=== PATIENT | male | born 1950 | race Caucasian/White ===

== ENCOUNTER 2018-12-26 05:13 | Inpatient (IN) | payer OTHER, MEDICARE, SELFPAY ==
[2018-12-26] VITALS (23 sets, daily range): BP systolic 110–173; BP diastolic 77–93; PULSE 76–108; RESP 15–24; TEMP 36.6–37.5; O2SAT 91–95; BMI 26.1; BMI 25.8
--- NOTE | 2018-12-26 05:21 | EKG12_ITS ---
Test Reason : Blood Pressure : / mmHG Vent. Rate : 103 BPM Atrial Rate : 104 BPM P-R Int : 200 ms QRS Dur : 066 ms QT Int : 366 ms P-R-T Axes : 070 030 013 degrees QTc Int : 479 ms Sinus tachycardia Nonspecific ST abnormality Abnormal ECG Confirmed by FRANK AHN, NAE ([id number]), news copy editor KAREN ESPINOSA ([id number]) on 12/30/2018 9:13:18 AM Referred By: NIKKI Confirmed By:LEYDI MARIE MD
--- NOTE | 2018-12-26 05:21 | RAD_ITS ---
STUDY: X-RAY CHEST REASON FOR EXAM: Male, 67 years old. Cough and shortness of breath. TECHNIQUE: Single AP portable view of the chest. COMPARISON: None. FINDINGS: The lungs are normally expanded with bilateral interstitial prominence, more significant along the lung bases. Subtle groundglass opacity on the right may indicate superimposed pneumonia. There is no demonstrated pleural abnormality. Normal size heart. Normal mediastinum and redd. Normal visualized pulmonary arteries. There is atherosclerotic calcification of the aortic arch with tortuosity. There are diffuse degenerative changes of the visualized thoracic spine. There is degenerative osteoarthritis of the bilateral shoulders. There is no demonstrated abnormality of the visualized soft tissue structures of the upper abdomen. RAD/Chest 1 View (Portable) IMPRESSION: Possible mild right lower lobe pneumonia with underlying interstitial lung disease. Electronically Signed: Carmina Rayo MD at 5:59 EST , Service support ,
--- NOTE | 2018-12-26 05:22 | ED.VIS.DYS ---
History of Present Illness Chief Complaint: Shortness of Breath Informant: Patient, EMS Onset: Days - 3 Timing: Continuous Quality: Dyspnea on exertion, Wheezing Current Severity: Severe Maximum Severity: Severe Worsened by: Coughing, Exertion Relieved by: - - Vicks vapor nebulizer Associated Symptoms: Chills, Cough, Green sputum Chest Pain: None Narrative: Patient is a 67-year-old male with history of hypertension and lifelong tobacco use presenting with worsening shortness of breath. Patient states he had a flulike illness 2 weeks ago. He notes he got better for a couple days but then over the past 3 days he is been worsening again. He states he feels short of breath especially with exertion. He has chills and sweats but denies any fever. He has had a cough productive of light green sputum. Patient states he is been wheezing. This morning when he woke up he felt very short of breath was using his vaccinate nebulizer at home. He states whenever he tried to stop using the nebulizer his breathing worsens which is why he called 911. He had an O2 saturation of 90% and squad placed him on nasal cannula. Patient denies any nausea, vomiting or diarrhea. He denies any change in his bowel habits. He denies any urinary symptoms. He denies any vision changes or headache. He denies any rash or skin changes. Past Medical History - Allergies and Home Meds Allergies/Adverse Reactions: Allergies CATHERINE Inhibitors Allergy (Verified 12/26/18 05:21) Angioedema Primary Care Physician: Isabell Doctor,Out of [NON-STAFF] - Past Medical History: - - Hypertension Surgical History: - - Small bowel resection Smoking Status: Current every day smoker Review of Systems General: Reports: Chills, Malaise, Sweats. Denies: Fever Eyes: Denies: Visual changes - bilaterally, Diplopia ENT: Denies: Rhinorrhea, Sore throat Cardiovascular: Denies: Chest pain, Palpitations Respiratory: Reports: Dyspnea, Cough, Sputum, Dyspnea on exertion Gastrointestinal: Denies: Abdominal pain, Nausea, Vomiting, Diarrhea, Melena, Hematochezia Genitourinary: Denies: Dysuria, Hematuria, Frequency Musculoskeletal: Denies: Back pain, Extremity Pain Skin: Denies: Rash, Wounds Neurological: Denies: Headache, Weakness, Numbness Physical Exam Vital Signs/Narrative: Vital Signs Temp Pulse Resp BP Pulse Ox 12/26/18 05:14 98.3 F 103 H 24 H 171/93 H 91 Inital Vital Signs reviewed: Yes General: Well nourished, Well developed, No Acute Distress Head: Normocephalic, Atraumatic Eyes: Perrl, EOMI ENT: Moist mucous membranes, No rhinorrhea, TM's clear Neck: Supple, Nontender. Negative for: No JVD Cardiovascular: Regular rhythm, No murmurs, Tachycardia Respiratory: No distress, Chest nontender, Wheezing, Diminished, Decreased Air Movement. Negative for: Chest tenderness Abdomen: Soft, Nontender, Nondistended, Normal bowel sounds Back: Nontender, Normal Inspection Extremities: Nontender, No edema Skin: Normal color, No rash Neurological: Alert, Oriented x3, Cranial nerves II-XII grossly intact, Normal Strength, Normal Sensation Psychological: Normal affect, Normal Mood Diagnostic/Tx/Re-eval Chest X-Ray - ED: 2 View, Read by ED Physician, Read by Radiologist, Chronic Changes, Right Infiltrate Clinical Impression(s) from Imaging Studies Chest X-Ray 12/26/18 05:21 IMPRESSION: Possible mild right lower lobe pneumonia with underlying interstitial lung disease. Electronically Signed: Carmina Rayo MD at 5:59 EST , Service support , Laboratory Data 12/26/18 12/26/18 12/26/18 05:20 05:20 05:20 WBC 8.0 RBC 3.71 L Hgb 13.1 Hct 38.0 L MCV 102.4 H MCH 35.3 H MCHC 34.5 RDW Std Deviation 51.8 H RDW Coeff of Katie 13.8 Plt Count 75 L MPV 11.2 Immature Gran % (Auto) 0.400 Neut % (Auto) 64.9 Lymph % (Auto) 14.1 L [place] % (Auto) 14.2 H Eos % (Auto) 6.0 H Baso % (Auto) 0.4 Absolute Neuts (auto) 5.2 Absolute Lymphs (auto) 1.12 Nucleated RBC % 0 Sodium 140 Potassium 3.1 L Chloride 108 H Carbon Dioxide 24.0 Anion Gap 8 BUN 7 Creatinine 1.05 Estim Creat Clear Calc 72.88 Est GFR (MDRD) Af Amer 90 Est GFR (MDRD) Non-Af 74 BUN/Creatinine Ratio 6.7 L Glucose 115 H Lactic Acid 1.8 Calcium 8.0 L Troponin I 0.046 H - Rhythm Strip Rhythm Strip: Sinus Tach Rate: 103 Ectopy: None - EKG Initial EKG Interpretation: Sinus Tachycardia, - - Sinus tachycardia at a rate of 103PR interval 200QRS 66QT/QTc 366/479Normal axisNormal ST segmentsCompared to prior EKG patient has resolution of his first-degree AV block and is now tachycardic Prior: Changed - 10/05/13 Treatment - Dyspnea: Oxygen, Albuterol, Atrovent, Antibiotics, Steroid - Medical Decision Making Patient is evaluated for worsening shortness of breath and upper respiratory symptoms. On initial evaluation he is very diminished breath sounds with wheezing. He does have increased work of breathing. Patient is requiring supplementary oxygen. Patient is initially given Solu-Medrol, 500 cc of IV fluid and aerosols. Chest x-ray does show right lower lobe infiltrate which fits his clinical picture. In addition to his respiratory symptoms patient does have some increased lower extremity edema and some JVD. Chest x-ray does not look like CHF however. Patient's white blood cell count and lactate are normal. Patient does have mild improvement with supplemental oxygen and breathing treatments however he is still having a significant cough. He is given another DuoNeb for this. Troponin is minimally elevated so he is given aspirin. Potassium is 3.1 so he is given 40 mEq orally. Patient is started on Rocephin and azithromycin to treat the pneumonia. He will be admitted to the general medical floor. He is stable at time of disposition and agreeable with plan. ED Disposition - Plan for ED Patient: Disposition: Acute Care Hospital [facility] Diagnosis: Pneumonia, Hypoxia, Elevated troponin, Wheezing Referrals: [facility] Doctor,Out of [NON-STAFF] -
[2018-12-26] MEDS: MethylPREDNISolone 125 MG/2 ML Vial IV (05:32)
[2018-12-26 05:33] LABS: Absolute Lymphocyte Count 1.12 X10^3/uL (0.83-4.51); Absolute Neutrophil Count 5.2 X10^3/uL (2.0-7.7); Basophil# 0.03 X10^3/uL; Basophil% 0.4 % (0-1); Eosinophil# 0.48 X10^3/uL; Hemoglobin 13.1 g/dL (13.0-16.5); Lymphocyte # 1.12 X10^3/ul (4.0); Lymphocyte % 14.1 % (19-41); Mean Corp Hgb Conc 34.5 g/dL (32-36); Mean Corpuscular Hgb 35.3 pg (27.0-32.0); Mean Corpuscular Volume 102.4 fL (80-94); Mean Platelet Vol. 11.2 fl (6.2-12.0); Monocyte# 1.13 X10^3/uL; Monocyte% 14.2 % (0-10); NRBC Flagged by Analyzer 0 % (0-5); Neutrophil # 5.16 X10^3/uL (2.7-7.7); Neutrophil % 64.9 % (47-70); POSITIVE COUNT YES; Platelet Count 75 K/mm3 (150-450); RBC Distribution Width CV 13.8 % (11.6-14.6); RBC Distribution Width SD 51.8 fl (35.1-43.9); Red Blood Count 3.71 M/mm3 (4.6-6.2)
[2018-12-26] MEDS: Albuterol 2.5 MG/3 ML VIAL.NEB. INHALATION (05:40)
[2018-12-26] MEDS: Ipratropium/Albuterol Sulfate 3 ML AMPUL.NEB INHALATION ×6 (05:40→22:27)
[2018-12-26 05:55] LABS: Anion Gap 8 (5-15); BUN 7 mg/dL (7-18); BUN/Creat Ratio 6.7 RATIO (10-20); Chloride 108 mmol/L (98-107); Creatinine, Serum 1.05 mg/dL (0.70-1.30); EST Glomerular Filtration Rate 74 mL/min (>60); Est Glom Filt Rate - Afr Amer 90 mL/min (>60); Estimated Creatinine Clearance 72.88 ml/min; Glucose 115 mg/dL (74-106); Potassium 3.1 mmol/L (3.5-5.1); Sodium Level 140 mmol/L (136-145)
[2018-12-26 06:10] LABS: Lactic Acid 1.8 mmol/L (0.4-2.0)
--- NOTE | 2018-12-26 06:10 | HP.PCM_ITS ---
Problem List (1) Acute respiratory failure with hypoxia Status: Acute (2) Pneumonia Status: Acute Qualifiers: Pneumonia type: due to unspecified organism Laterality: right Lung location: middle lobe of lung Qualified Code(s): J18.9 - Pneumonia, unspecified organism (3) COPD exacerbation Status: Acute (4) Elevated troponin Status: Acute (5) Hypokalemia Status: Acute (6) HTN (hypertension) Status: Chronic Qualifiers: Hypertension type: essential hypertension Qualified Code(s): I10 - Essential (primary) hypertension (7) Tobacco use Status: Chronic (8) Alcohol abuse Status: Chronic History of Present Illness Date of Admission: 12/26/18 Chief Complaint: Dyspnea, cough The patient is a 67 y/o M w/ PMHx: Suspected Chronic COPD, Tobacco use, HTN, Fe Deficiency Anemia, Vitamin D deficiency who presents to the [facility] ED on 12/26/18 with history of acute viral syndrome approximately 2 weeks prior to current presentation with arthralgias, myalgias, rhinorrhea, congestion with coughing with improvement initially however over the last 3 days he feels worsened with increased shortness of breath, worse with exertion with associated chills but no specific fever with worsened productive cough of green sputum and concurrent wheezing without improvement with home nebulizer machine prompting call to EMS. Work-up in the ED included T 98.3, heart rate 103, BP 171/93, respiratory rate 24, 91% on room air, CBC with W BC 8, hemoglobin 13.1, platelet 75 with no evidence of left shift with increased monocytes and eosinophils, BMP with potassium 3.1, chloride 108, glucose 115, lactic acid 1.8, troponin 0.046, blood culture x2 pending per ED, chest x-ray with possible right middle lower lobe pneumonia with underlying interstitial lung disease, EKG sinus tachycardia without acute evidence of ischemia. In the ED patient ministered azithromycin, Rocephin, normal saline, albuterol and DuoNeb therapies, Solu-Medrol as well as aspirin 325 mg p.o. x1. In the ED upon evaluation patient has notable increased work of breathing, accessory muscle usage, pursed lip breathing therefore ABG requested as well as consideration of BiPAP if these findings are appropriate. Past Medical History Past Medical History (Chronic Problems): Chronic Problems HTN (hypertension) (Chronic) Tobacco use (Chronic) Alcohol abuse (Chronic) Allergies CATHERINE Inhibitors Allergy (Verified 12/26/18 05:21) Angioedema Home Medications: Ambulatory Orders Medication Instructions Recorded Metoprolol Tartrate [Lopressor 25 mg PO BID 10/05/13 (Beta Bryant)] Ergocalciferol [Vitamin D] 50,000 unit PO QMONTH 12/26/18 Ferrous Sulfate [Iron] 325 mg PO DAILY 12/26/18 Lactobacillus Acidophilus 1 ea PO DAILY 12/26/18 [Probiotic] Surgical History: - - Small bowel resection Psychiatric History: No pertinent psych hx Lives: Alone Smoking Status: Current every day smoker - Patient currently smokes 1 pack/day cigarette tobacco usage although has lessened over the last 2 weeks since he is been ill. Tobacco Use: Cigarettes Alcohol: Heavy - Patient notes routine binge drinking at least on the weekends given that he works during the week with at least 2 sixpacks of beer and several shots of Bryce whiskey. Drugs: None - *Family History Maternal History Items: Diabetes, Heart Disease, Hypertension Paternal History Items: Cancer Review of Systems Constitutional: Reports: Anorexia, Chills, Malaise, Weakness, Fatigue. Denies: Fever, Weight Change HEENT: Reports: Nasal Congestion, Post Nasal Drip, Sinus Congestion, Sore Throat. Denies: Head Aches, Sinus Drainage Cardiovascular: Denies: Chest Pain, Palpitations Respiratory: Reports: Cough, Shortness of Breath, Shortness of breath at rest, Shortness of breath upon exertion, Sputum production, Wheezing Gastrointestinal: Reports: Nausea. Denies: Abdominal Pain, Vomiting Genitourinary: Denies: Dysuria Musculoskeletal: Reports: Back Pain, Joint Pain, Muscle pain. Denies: Joint Tenderness Skin: Denies: Rash, Wounds Neurological: Denies: Numbness, Tingling, Focal weakness Psychiatric: Denies: Anxiety, Depression, Homicidal Ideations, Suicidal Ideations Hematologic/ Lymphatic: Reports: Anemia, Easy Bruising, Easy Bleeding VTE Information - Inpt Only VTE Present on Admission: No VTE Mechan Device Prophylaxis: SCD's VTE Pharm Prophylaxis ordered?: Yes Patient Problems: Active and Suspected Problems Pneumonia (Acute) Hypoxia (Acute) Elevated troponin (Acute) Wheezing (Acute) Acute respiratory failure with hypoxia (Acute) COPD exacerbation (Acute) Hypokalemia (Acute) Subjective: Patient seated upright in ED bed, fatigued appearance, increased work of breathing, accessory muscle usage, pursed lip breathing, requesting ABG now. Objective: Physical Examination: General: awake, alert, oriented x 3 and cooperative, seated upright in the ED bed, having difficulty speaking full sentences, short of breath, accessory muscle usage, increased respiratory rate, pending ABG now. Skin: normal color, turgor, no icterus, cyanosis. HEENT: AT/NC, EOMI, PERRLA, dry MM, posterior OP erythema, no carotid bruits or JVD noted. Lungs: Diffusely diminished breath sounds, coarse, diminished greater bases, diffuse wheezing, increased work of breathing, accessory muscle usage, difficulty speaking in full sentences, no rales or rhonchi. Heart: Tachycardic with regular rhythm; no gallop, rub audible. Abdomen: soft, thin habitus, NTTP, ND, normal BS, no HSM. Extremities: no cyanosis, clubbing, very mild bilateral lower extremity ankle and pedal edema, minimally pitting but patient notes prior over the last several days he has had difficulty eating placing issues secondary to the severity of his lower extremity edema. Neurological: patient awake, alert, oriented x 3; cognitive function intact; pupils equally reactive to light and accomodation; cranial nerves II-XII grossly normal, moving all 4 extremities, no focal deficits, strength severely global decrease secondary to acute presentation. Psychiatric: affect appears fatigued, mildly distressed, no acute evidence of depressive or anxiety feelings. - Physical Exam Vitals/I&O's: Vital Signs Temp Pulse Resp BP Pulse Ox 98.3 F 102 H 18 171/93 H 91 12/26/18 05:14 12/26/18 05:34 12/26/18 05:34 12/26/18 05:14 12/26/18 05:14 Oxygen Delivery Method Room Air Weight: 192 lb 10.944 oz Body Mass Index (BMI) 26.1 Intake and Output for Last 24 Hours 12/24/18 12/25/18 12/26/18 23:59 23:59 23:59 Intake Total 500 / 500 Balance 500 / 500 Laboratory Results 12/26/18 05:20: WBC 8.0, RBC 3.71 L, Hgb 13.1, Hct 38.0 L, MCV 102.4 H, MCH 35.3 H, MCHC 34.5, RDW Std Deviation 51.8 H, RDW Coeff of Katie 13.8, Plt Count 75 L, MPV 11.2, Immature Gran % (Auto) 0.400, Neut % (Auto) 64.9, Lymph % (Auto) 14.1 L, [place] % (Auto) 14.2 H, Eos % (Auto) 6.0 H, Baso % (Auto) 0.4, Absolute Neuts (auto) 5.2, Absolute Lymphs (auto) 1.12, Nucleated RBC % 0 12/26/18 05:20: Sodium 140, Potassium 3.1 L, Chloride 108 H, Carbon Dioxide 24.0, Anion Gap 8, BUN 7, Creatinine 1.05, Estim Creat Clear Calc 72.88, Est GFR (MDRD) Af Amer 90, Est GFR (MDRD) Non-Af 74, BUN/Creatinine Ratio 6.7 L, Glucose 115 H, Calcium 8.0 L, Troponin I 0.046 H 12/26/18 05:20: Lactic Acid 1.8 Current Medications Sodium Chloride () 500 mls @ 999 mls/hr IV .Q31M ONE Last Infusion: 12/26/18 06:06 Dose: Infused Documented by: Ceftriaxone Sodium (Rocephin) 1 gm in 50 mls @ 100 mls/hr IV X1 ONE Stop: 12/26/18 06:38 Azithromycin 500 mg/ Dextrose 255 mls @ 250 mls/hr IV X1 ONE Stop: 12/26/18 07:10 Assessment/Plan All Active Problems Pneumonia (Acute) Hypoxia (Acute) Elevated troponin (Acute) Wheezing (Acute) Acute respiratory failure with hypoxia (Acute) COPD exacerbation (Acute) Hypokalemia (Acute) The patient is a 67 y/o M w/ PMHx: Suspected Chronic COPD, Tobacco use, HTN, Fe Deficiency Anemia, Vitamin D deficiency who presents to the [facility] ED on 12/26/18 with history of acute viral syndrome approximately 2 weeks prior to current presentation with arthralgias, myalgias, rhinorrhea, congestion with improvement initially however over the last 3 days he feels worsened with increased shortness of breath, worse with exertion with associated chills but no specific fever with productive cough of green sputum and concurrent wheezing. 1. Acute Hypoxia Respiratory Failure secondary to Acute Community Acquired Pneumonia w/ Suspected Acute on Chronic COPD Exacerbation: Given presentation requested ABG in the ED and suspect BiPAP usage needs, notable increased work of breathing, accessory muscle usage and evident respiratory distress. Work-up in the ED included T 98.3, heart rate 103, BP 171/93, respiratory rate 24, 91% on room air, CBC with W BC 8, hemoglobin 13.1, platelet 75 with no evidence of left shift with increased monocytes and eosinophils, BMP with potassium 3.1, chloride 108, glucose 115, lactic acid 1.8, troponin 0.046, blood culture x2 pending per ED, chest x-ray with possible right middle lower lobe pneumonia with underlying interstitial lung disease Will admit to PCU, maintain on oxygen with wean as tolerated to room air, continue ATC duonebs, PRN albuterol, maintain on IV Solu-Medrol, maintain on IV Rocephin and Azithromycin, HOB, IS parameters w/ pending sputum cultures, respiratory viral panel and urine antigens. Bld cx x 2 obtained in the ED. Will obtain AM oxygenation trial for discharge planning daily. 2. Indeterminate cardiac enzyme w/ new onset BL LE Edema: EKG in ED with no acute evidence of ischemia, CXR w/ right middle lower lobe pneumonia with underlying interstitial lung disease, initial trop 0.046. Will place on a monitored bed to assure no acute myocardial infarction with serial cardiac enzymes and EKGs. ASA, NG, morphine. ECHO pending. CATHERINE wraps. Magnesium pending. FLP in AM. BNP pending. Examination in the ED with nonsevere appearing bilateral lower extremity ankle and pedal edema, patient noted with severe prior and he had difficulty even getting his shoes on, currently improved from his prior description. 3. Hypokalemia: Admission K+ 3.1, supplementation given, repeat level in AM. 4. Thrombocytopenia, unclear if acute versus chronic: Admission platelet level 75, prior noted in 2013 151, closely follow, repeat CBC in a.m. 5. Chronic iron deficiency anemia: Admission hemoglobin 13.1, previously noted in 1415.8, continue iron supplementation. 6. Tobacco Abuse: Encouraged cessation, inpatient consultation per RT, NR if desired. 7. EtOH Abuse: Patient notes routine consumption over the weekends, binge drinking with at least 2 sixpacks of beer and several shots of whiskey routinely but notes inability to drink during the week secondary to his activities. Will maintain on CIWA protocol, MVI, thiamine and folic acid. Magnesium and phosphorus levels requested. 8. DVT prophylaxis: SCDs, Lovenox but if further decreased platelet count would discontinue. 9. CODE STATUS: Full. Patient does not have a living will nor does he have a healthcare power of assistant district attorney. Code Visit Inpatient E&M: 96026 Init Hosp L3
[2018-12-26] MEDS: Ceftriaxone 1 GM/50 ML BAG IV ×2 (06:18→12:59)
[2018-12-26] MEDS: Aspirin 325 MG Tablet PO (06:22)
[2018-12-26 07:00] LABS: Allen Test POS; Base Excess -4 mmol/L (-2 to +2); Blood Gas Specimen Type ART; O2 Delivery Device Nasal Can; PO2 63 mmHG (75-100); SITE L Radial; SO2 93 % (95-99); Time Given 645; Total Carbon Dioxide 21 mmol/L; pCO2 30.2 mmHg (35-45); pH 7.43 (7.35-7.45)
--- NOTE | 2018-12-26 07:34 | ECHOCS_ITS ---
Version 2 Reason For Study: Dyspnea/SOB Procedure This was a 2D Doppler, Color Flow transthoracic echocardiogram. The study was technically difficult. Contrast injection was performed. Exam performed portable in ICU/CCU. Left Ventricle Normal size and thickness. The estimated ejection fraction is 60 %. No evidence for diastolic dysfunction. No regional wall motion abnormalities noted. Right Ventricle Normal RV size. Normal systolic function. Atria Normal left atrium. Normal right atrium. No doppler evidence for ASD. Mitral Valve There is no mitral valve stenosis. No mitral valve insufficiency. Tricuspid Valve There is no tricuspid stenosis. Trivial tricuspid valve insufficiency. Pulmonary artery systolic pressure is 25 mmHg. Aortic Valve Trisinus/trileaflet aortic valve. There is no aortic stenosis. No aortic valve insufficiency. Pulmonic Valve There is no pulmonic valvular stenosis. No pulmonic valve insufficiency. Great Vessels Normal aortic root. Pericardium/Pleural No pericardial effusion. Medication Diluted definity 3ml given slow IV push to enhance endocardial definition. MMode/2D Measurements & Calculations LVIDd: 5.1 cm IVSd: 0.92 cm LA dimension: 4.2 cm LVIDs: 3.8 cm LVPWd: 1.0 cm FS: 24.6 % LAV(MOD-bp): 50.3 ml LA A4 area: 18.0 cm2 RA A4 area: 13.6 cm2 LAV(MOD-bp) Indexed: 24.0 ml/m2 LAV(MOD-sp2): 48.5 ml LAV(MOD-sp4): 51.6 ml Doppler Measurements & Calculations Lat Peak [place]: 13.0 cm/sec Ao V2 max: 142.5 cm/sec LV V1 max: 130.1 cm/sec Ao max P.1 mmHg LV V1 max P.8 mmHg Interpretation Summary The study was technically difficult. Diluted definity 3ml given slow IV push to enhance endocardial definition. The estimated ejection fraction is 60 %. No evidence for diastolic dysfunction. Pulmonary artery systolic pressure is 25 mmHg. The study was technically difficult. Ordering Physician: Traci Mazariegos Performed By: Tyrese Leon RCS
[2018-12-26 08:10] LABS: Magnesium 1.3 mg/dL (1.6-2.6); Phosphorus 2.3 mg/dL (2.5-4.9); Thyroid Stim Hormone (TSH) 5.47 uIU/mL (0.358-3.74)
[2018-12-26 08:32] LABS: BNP,B-Type NATRIURETIC PEPTIDE 201.2 pg/mL (0-100)
[2018-12-26] MEDS: Metoprolol Tartrate 25 MG Tablet PO ×2 (10:22→22:02)
[2018-12-26] MEDS: Multivitamins,Ther W-Minerals Tablet 1 TABLET PO (10:40)
[2018-12-26] MEDS: Folic Acid 1 MG Tablet PO (10:40)
[2018-12-26] MEDS: Thiamine Hydrochloride 100 MG Tablet PO ×2 (10:40→18:14)
[2018-12-26] MEDS: Na Biphos/Potassium Phosphate PACKET 1 PACKET PO ×2 (10:41→22:06)
[2018-12-26] MEDS: Famotidine 20 MG Tablet PO ×2 (10:41→22:03)
[2018-12-26] MEDS: Magnesium Sulfate 4gm/100mL 4 GM/100 ML IV.SOLN. IV (10:41)
[2018-12-26] MEDS: Ferrous Sulfate 325 MG Tablet PO (12:59)
--- NOTE | 2018-12-26 13:20 | PCM.PN.HOSP ---
Patient Problems: Active and Suspected Problems Pneumonia (Acute) Hypoxia (Acute) Elevated troponin (Acute) Wheezing (Acute) Acute respiratory failure with hypoxia (Acute) COPD exacerbation (Acute) Hypokalemia (Acute) Subjective: Patient seen and examined. He was admitted with a complaint of shortness of breath and a cough productive of greenish sputum as well as wheezing. His symptoms did not improve with use of nebulizer at home. He has been managed for acute hypoxic respiratory failure due to community-acquired pneumonia and acute COPD exacerbation. Patient seen and examined. He still complains of shortness of breath. Still has a cough productive of clear sputum. Review of systems otherwise negative. BNP was mildly elevated at 201.2 and troponin was 0.045 and trended up to 0.055. Magnesium is low at 1.3 and so his phosphorus at 2.3. Potassium is also low at 3.1. Vitals/I&O's: Vital Signs Temp Pulse Resp BP Pulse Ox 98.5 F 81 18 158/83 H 95 12/26/18 07:30 12/26/18 11:41 12/26/18 11:41 12/26/18 10:22 12/26/18 11:41 Oxygen Flow Rate (L/min) 3 Oxygen Delivery Method Nasal Cannula Weight: 190 lb 7.67 oz Body Mass Index (BMI) 25.8 Intake and Output for Last 24 Hours 12/24/18 12/25/18 12/26/18 23:59 23:59 23:59 Intake Total 1165 / 1165 Balance 1165 / 1165 General: Alert, Oriented x3, Cooperative HEENT: Atraumatic, PERRLA, EOMI, Normocephalic Oral: Dry Mucosa Neck: Supple, No JVD, Negative Carotid Bruits Lungs: - - decreased breath sounds in all lung mathias, with no wheezes or crackles. On 3L of oxygen. Cardiovascular: Regular rate, Regular Rhythm, Normal S1, Normal S2, No murmurs Abdomen: Bowel Sounds Present, Soft, Non Tender, Non-Distended, No Hepato-splenomegaly Extremities: No clubbing, No cyanosis, No edema, Capillary Refill Less than 3 Seconds Skin: No rashes, No breakdown Musculoskeletal: No Tenderness to Palpation of Joints or Extremities Lymphatic: No Cervical, Supraclavicular, or Inguinal Adenopathy Neurological: Cranial nerves II-XII grossly intact, Neuro grossly intact, Motor Exam 5/5 strength throughout Psych/Mental Status: Normal Affect, Appropriate, Alert and oriented to time, place, person, mood and affect Microbiology Past 72 Hours 12/26/18 08:50 Mucosa - Nose Respiratory Panel (PCR) - Final Rhinovirus 12/26/18 08:20 Urine, Clean Catch Streptococcus pneumoniae Antigen (M - Final 12/26/18 08:20 Urine, Clean Catch Legionella Antigen - Final Laboratory Results 12/26/18 05:20: WBC 8.0, RBC 3.71 L, Hgb 13.1, Hct 38.0 L, MCV 102.4 H, MCH 35.3 H, MCHC 34.5, RDW Std Deviation 51.8 H, RDW Coeff of Katie 13.8, Plt Count 75 L, MPV 11.2, Immature Gran % (Auto) 0.400, Neut % (Auto) 64.9, Lymph % (Auto) 14.1 L, [place] % (Auto) 14.2 H, Eos % (Auto) 6.0 H, Baso % (Auto) 0.4, Absolute Neuts (auto) 5.2, Absolute Lymphs (auto) 1.12, Nucleated RBC % 0 12/26/18 05:20: Sodium 140, Potassium 3.1 L, Chloride 108 H, Carbon Dioxide 24.0, Anion Gap 8, BUN 7, Creatinine 1.05, Estim Creat Clear Calc 72.88, Est GFR (MDRD) Af Amer 90, Est GFR (MDRD) Non-Af 74, BUN/Creatinine Ratio 6.7 L, Glucose 115 H, Calcium 8.0 L, Troponin I 0.046 H 12/26/18 05:20: Lactic Acid 1.8 12/26/18 05:20: Phosphorus 2.3 L, Magnesium 1.3 L, TSH 5.47 H 12/26/18 05:20: B-Natriuretic Peptide 201.2 H 12/26/18 06:54: Specimen Type ART, Sample Site L Radial, pH 7.43, Bicarbonate Actual 20.0 L, POC Total CO2 21, Base Excess -4 L, O2 Saturation 93 L, ABG pCO2 30.2 L, ABG pO2 63 L, Xavier Test POS, O2 Delivery Device Nasal Can, Liter Flow 2.0, Blood Gas Notified Whom HOSP , Blood Gas Notified Time 645 11/21/19 08:20: Troponin I 0.055 H Diagnostic Data Chest X-Ray 12/26/18 05:21 IMPRESSION: Possible mild right lower lobe pneumonia with underlying interstitial lung disease. Electronically Signed: Carmina Rayo MD at 5:59 EST , Service support , Current Medications Acetaminophen (Tylenol) 650 mg PO Q6H PRN PRN PRN Reason: Non-cardiac pain (mod-severe) Hydrocodone Bitart/Acetaminophen (Capac 5mg-325mg) 1 - 2 tablet PO Q4H PRN PRN PRN Reason: Pain Score 4-10/10 Al Hydroxide/Mg Hydroxide (Mylanta Ii) 15 - 30 ml PO Q4H PRN PRN PRN Reason: INDIGESTION Albuterol Sulfate (Ventolin Aerosols) 2.5 mg INHALATION Q2H PRN PRN PRN Reason: dyspnea, wheezing Albuterol/Ipratropium (Duoneb) 3 ml INHALATION Q4HWA.RT [facility] Last Admin: 12/26/18 11:39 Dose: 3 ml Documented by: Dextrose (D50w Syringe) 0 gm IV X1 PRN; Protocol PRN Reason: Hypoglycemia Enoxaparin Sodium (Lovenox) 40 mg SC DAILY@0600 [facility] Famotidine (Pepcid) 20 mg PO BID [facility] Last Admin: 12/26/18 10:41 Dose: 20 mg Documented by: Ferrous Sulfate (Ferrous Sulfate) 325 mg PO DAILY@1200 [facility] Last Admin: 12/26/18 12:59 Dose: 325 mg Documented by: Folic Acid (Folic Acid) 1 mg PO DAILY@0800 [facility] Stop: 12/28/18 08:01 Last Admin: 12/26/18 10:40 Dose: 1 mg Documented by: Glucagon () 1 mg IM .X1 PRN PRN Reason: Hypoglycemia Guaifenesin (Robitussin) 20 ml PO Q4H PRN PRN PRN Reason: COUGH Hydralazine HCl (Apresoline Iv) 10 mg IV Q4H PRN PRN PRN Reason: SBP > 160 Sodium Chloride () 500 mls @ 999 mls/hr IV .Q31M ONE Last Infusion: 12/26/18 06:06 Dose: Infused Documented by: Azithromycin 500 mg/ Dextrose 255 mls @ 250 mls/hr IV Q24 [facility] Stop: 01/01/19 11:03 Ceftriaxone Sodium 2 gm/ (Sodium Chloride) 50 mls @ 100 mls/hr IV Q24 [facility] Stop: 01/03/19 10:31 Sodium Chloride () 250 mls @ 15 mls/hr IV .[id number] PRN PRN Reason: Saline Flush Magnesium Sulfate () 4 gm in 100 mls @ 25 mls/hr IV X1 ONE Stop: 12/26/18 13:59 Last Admin: 12/26/18 10:41 Dose: 25 mls/hr Documented by: Lactobacillus Acidophilus (Acidophilus) 1 tablet PO DAILY [facility] Last Admin: 12/26/18 10:41 Dose: 1 tablet Documented by: Lorazepam (Ativan) 2 mg PO Q2H PRN PRN; Protocol PRN Reason: CIWA score > 8 but <15 Lorazepam (Ativan) 2 mg PO UD PRN; Protocol PRN Reason: CIWA score >/=15. Lorazepam (Ativan) 2 mg IV Q2H PRN PRN; Protocol PRN Reason: CIWA score > 8 but <15 Lorazepam (Ativan) 2 mg IV UD PRN; Protocol PRN Reason: CIWA score >/=15. Magnesium Hydroxide (Milk Of Magnesia) 30 ml PO DAILY PRN PRN Reason: Constipation Melatonin (Melatonin) 3 mg PO QHS PRN PRN PRN Reason: INSOMNIA Methylprednisolone (Solu-Medrol) 40 mg IV Q8 [facility] Metoprolol Tartrate (Lopressor (Beta Bryant)) 25 mg PO BID [facility] Last Admin: 12/26/18 10:22 Dose: 25 mg Documented by: Morphine Sulfate () 1 - 2 mg IV Q4H PRN PRN PRN Reason: Pain Score 1-10/10 Multivitamins/Minerals (Multivitamin With Minerals) [facility] Last Admin: 12/26/18 10:40 Dose: 1 tablet Documented by: Nitroglycerin (Nitrostat) 0.4 mg SUBLINGUAL Q5M PRN PRN Reason: CARDIAC/CHEST PAIN Ondansetron HCl (Zofran) 4 mg IV Q8H PRN PRN PRN Reason: NAUSEA/VOMITING Potassium Phos/Sodium Phos (Neutra-Phos Packet) 1 packet PO BID [facility] Last Admin: 12/26/18 10:41 Dose: 1 packet Documented by: Sodium Chloride () 10 - 40 ml IV UD PRN PRN Reason: SALINE FLUSH Thiamine HCl (Vitamin B1) 100 mg PO BIDCM [facility] Stop: 12/28/18 17:01 Last Admin: 12/26/18 10:40 Dose: 100 mg Documented by: Throat Lozenges (Cepacol Sore Throat Lozenge) 1 lozenge MUCOUS MEM Q2H PRN PRN PRN Reason: Sore Throat/Cough STROKE Vital Signs/Narrative: Vital Signs Pulse Resp BP Pulse Ox 12/26/18 11:41 81 18 95 12/26/18 10:22 102 H 158/83 H 12/26/18 10:00 94 Medical Necessity - Tobacco Use Smoking Status: Current every day smoker Tobacco Use: Cigarettes Assessment/Plan All Active Problems Pneumonia (Acute) Hypoxia (Acute) Elevated troponin (Acute) Wheezing (Acute) Acute respiratory failure with hypoxia (Acute) COPD exacerbation (Acute) Hypokalemia (Acute) 1. Acute hypoxic respiratory failure due to community acquired pneumonia and COPD exacerbation patient still short of breath, though RR is now down to 16, from 24 on admission CXR shwoed right lower lobe pneumonia no leucocytosis on IV rocephin and azithromycin respiratory panel positive for rhinovirus urine for strep and legionella wer negative blood cultures pending. Will order sputum culture titrate oxygen to maintain sats>90% continue breathing treatments and steroids 2. Indeterminate troponins initial troponin was 0.045->0.055. this may also be due to the pneumonia, as it can cause an elevation in troponins trend troponins. 2D echo ordered 3. COPD exacerbation due to acute rhinovirus infection: as under 1. breathing treatments and steroids 4. Hypokalemia; K is 3.1. Will replace and monitor 5. hypomagnesemia, hypophosphatemia: Mg is 1.3, and phosphorous is 2.3. Will replace and monitor. Likely due to excessive alcohol abuse 6. History of iron deficiency anemia: Hb is 13.1. continue iron supplements 7. thormbocytopenia: platelets were 75 on admission. Likely due to history of alcohol abuse. WIll monitor 8. elevated TSH: TSH is 5.47; will check free T4 and T3 DVT prophylaxis: SCDs. will discontinue lovenox in light of thrombocytopenia and history of alcohol abuse Code Visit Inpatient E&M: 98874 Subs Hosp L3
--- NOTE | 2018-12-26 13:23 | CASEMGMT ---
RN CM Assessment Presentation: Pneumonia Intro role of CM and purpose of RN CM assessment to patient in room. Pt is awake, alert and able to participate in assessment. Demographics, PCP and Pharmacy verified. Pt states he works, is independent at home, no care needs identified. Plan is to return home on dc. -Reviewed MD Declination to Transfer form. Pt wishes to stay @ [facility] under his [facility] benefits and not Transfer to MD. Form signed -Declination to transfer and clinical faxed to [facility] Transfer Center @ PCP: [facility], [place], [place] Preferred Pharmacy: [facility]. Insurance: [facility] only, MD Medical benefits Prescription Benefit: yes through [facility] LNOK: Friend Leeanne Padron Living Arrangements: Lives independently in one story home. States no care needs. Transportation: drives DME: none HHC: none SW: consult for ETOH use. Patient DC goals: home DC PLAN: home
--- NOTE | 2018-12-26 13:26 | CASEMGMT ---
SW met w/pt in room in regard to alcohol use. Pt states he just drinks on the weekends, has too much to do during the week do drink. Pt states he drinks beer and every once in a while a touch of [place]. Pt does not think that this is an issue, not interested in referrals. Pt did mention that smoking may have led him to being here in the hospital. Pt states when he drinks he smokes, and he is wondering if it is affecting him. Pt states he can't use the patch however as it causes his skin to split. SW suggested he speak to his doctor [facility] the [facility] about it. Pt states he did speak to someone at the [facility] about Chantix but they said they can only give him the patch. SW suggested he speak w/them again about it when he goes back. SW called [facility], left message for [facility] [employer], [employer] is [place] [place]--this is who pt sees. SW stated in message to follow up w/pt in regard to Chantix, explained pt is interested in starting Chantix so he can stop smoking. KATERINA let pt know that SW called, pt appreciative. KATERINA remains available for any additional social service needs. ELIAS Reilly
[2018-12-26 13:48] LABS: Free T3 1.6 pg/mL (2.18-3.98)
[2018-12-26] MEDS: 0.9% Saline Lock 10 ML Syringe IV ×2 (15:42→22:04)
[2018-12-26] MEDS: BENZOCAINE/MENTHOL 1 LOZENGE MUCOUS MEM ×2 (15:47→18:17)
--- NOTE | 2018-12-26 23:58 | CPS ---
Pt. refused to wear BiPaP/CPAP; no appearance of trouble breathing or any respiratory distress
[2018-12-27] VITALS (17 sets, daily range): BP systolic 145–151; BP diastolic 76–82; PULSE 75–92; RESP 17–19; TEMP 36.4–36.6; O2SAT 93–95
[2018-12-27] MEDS: 0.9% Saline Lock 10 ML Syringe IV ×3 (04:22→21:26)
[2018-12-27 04:41] LABS: Absolute Lymphocyte Count 0.89 X10^3/uL (0.83-4.51); Absolute Neutrophil Count 12.4 X10^3/uL (2.0-7.7); Basophil# 0.01 X10^3/uL; Basophil% 0.1 % (0-1); Hematocrit 34.1 % (40-54); Hemoglobin 11.6 g/dL (13.0-16.5); Lymphocyte # 0.89 X10^3/ul (4.0); Lymphocyte % 6.4 % (19-41); Mean Corpuscular Hgb 34.9 pg (27.0-32.0); Mean Corpuscular Volume 102.7 fL (80-94); Mean Platelet Vol. 11.4 fl (6.2-12.0); Monocyte# 0.54 X10^3/uL; Monocyte% 3.9 % (0-10); NRBC Flagged by Analyzer 0 % (0-5); Neutrophil # 12.42 X10^3/uL (2.7-7.7); POSITIVE COUNT YES; Platelet Count 76 K/mm3 (150-450); RBC Distribution Width CV 13.9 % (11.6-14.6); Red Blood Count 3.32 M/mm3 (4.6-6.2); White Blood Count 13.9 K/mm3 (4.4-11.0)
[2018-12-27 04:57] LABS: Anion Gap 7 (5-15); BUN 13 mg/dL (7-18); BUN/Creat Ratio 12.3 RATIO (10-20); Calcium,Total 7.8 mg/dL (8.5-10.1); Chloride 108 mmol/L (98-107); Cholesterol 51 mg/dL (200); Creatinine, Serum 1.06 mg/dL (0.70-1.30); EST Glomerular Filtration Rate 73 mL/min (>60); Est Glom Filt Rate - Afr Amer 89 mL/min (>60); Estimated Creatinine Clearance 72.19 ml/min; Glucose 121 mg/dL (74-106); High Density Lipoprotein 24 mg/dL; Potassium 3.9 mmol/L (3.5-5.1); Sodium Level 139 mmol/L (136-145); Triglycerides 26 mg/dL; Very Low Density Lipoprotein 5 mg/dL (5-40)
--- NOTE | 2018-12-27 05:55 | EKG12_ITS ---
Test Reason : AM EKG Blood Pressure : / mmHG Vent. Rate : 082 BPM Atrial Rate : 082 BPM P-R Int : 192 ms QRS Dur : 086 ms QT Int : 400 ms P-R-T Axes : 066 026 048 degrees QTc Int : 467 ms Normal sinus rhythm Normal ECG When compared with ECG of 26-DEC-2018 05:27, MANUAL COMPARISON REQUIRED, DATA IS UNCONFIRMED Confirmed by ASHOK AHN, MOON ([id number]), story editor FRANCOIS MCCLAIN ([id number]) on 01/06/2019 12:58:13 PM Referred By: BENNETT Confirmed By:MOON PULIDO MD
[2018-12-27] MEDS: Ipratropium/Albuterol Sulfate 3 ML AMPUL.NEB INHALATION ×4 (06:45→20:44)
[2018-12-27] MEDS: Famotidine 20 MG Tablet PO (09:36)
[2018-12-27] MEDS: Na Biphos/Potassium Phosphate PACKET 1 PACKET PO ×2 (09:36→22:04)
[2018-12-27] MEDS: Multivitamins,Ther W-Minerals Tablet 1 TABLET PO (09:36)
[2018-12-27] MEDS: Folic Acid 1 MG Tablet PO (09:36)
[2018-12-27] MEDS: Thiamine Hydrochloride 100 MG Tablet PO ×2 (09:37→18:13)
[2018-12-27] MEDS: Metoprolol Tartrate 25 MG Tablet PO ×2 (09:37→21:19)
--- NOTE | 2018-12-27 10:04 | PN_ITS ---
Patient Problems: Active and Suspected Problems Pneumonia (Acute) Hypoxia (Acute) Elevated troponin (Acute) Wheezing (Acute) Acute respiratory failure with hypoxia (Acute) COPD exacerbation (Acute) Hypokalemia (Acute) Subjective: Patient seen and examined. He still remains a bit short of breath, and is still coughing. Cough is dry. He denies any palpitations, dizziness, chest pain, palpitations, diarrhea or vomiting. Review of systems is otherwise negative. Patient had walking pulse ox this morning, with saturation dropping to the 80s. labs and vitals reviewed. Vitals/I&O's: Vital Signs Temp Pulse Resp BP Pulse Ox 97.9 F 87 18 151/78 H 93 12/27/18 04:28 12/27/18 09:37 12/27/18 04:28 12/27/18 09:37 12/27/18 04:28 Oxygen Flow Rate (L/min) 2 Oxygen Delivery Method Nasal Cannula Weight: 190 lb 7.67 oz Body Mass Index (BMI) 25.8 Intake and Output for Last 24 Hours 12/25/18 12/26/18 12/27/18 23:59 23:59 23:59 Intake Total 1795 / 2035 480 / 480 Output Total 600 / 600 Balance 1795 / 1735 -120 / -120 General: Alert, Oriented x3, Cooperative HEENT: Atraumatic, PERRLA, EOMI, Normocephalic Oral: Dry Mucosa Neck: Supple, No JVD, Negative Carotid Bruits Lungs: - - decreased breath sounds in all lung mathias, with no wheezes or crackles. On 2L of oxygen. Cardiovascular: Regular rate, Regular Rhythm, Normal S1, Normal S2, No murmurs Abdomen: Bowel Sounds Present, Soft, Non Tender, Non-Distended, No Hepato- splenomegaly Extremities: No clubbing, No cyanosis, No edema, Capillary Refill Less than 3 Seconds Skin: No rashes, No breakdown Musculoskeletal: No Tenderness to Palpation of Joints or Extremities Lymphatic: No Cervical, Supraclavicular, or Inguinal Adenopathy Neurological: Cranial nerves II-XII grossly intact, Neuro grossly intact, Motor Exam 5/5 strength throughout Psych/Mental Status: Normal Affect, Appropriate, Alert and oriented to time, place, person, mood and affect Microbiology Past 72 Hours 12/26/18 08:50 Mucosa - Nose Respiratory Panel (PCR) - Final Rhinovirus 12/26/18 08:20 Urine, Clean Catch Streptococcus pneumoniae Antigen (M - Final 12/26/18 08:20 Urine, Clean Catch Legionella Antigen - Final Laboratory Results 12/26/18 13:00: Troponin I 0.057 H 12/26/18 13:00: Free T4 1.30, Free T3 pg/dL 1.6 L 12/27/18 04:25: WBC 13.9 H, RBC 3.32 L, Hgb 11.6 L, Hct 34.1 L, MCV 102.7 H, MCH 34.9 H, MCHC 34.0, RDW Std Deviation 52.0 H, RDW Coeff of Katie 13.9, Plt Count 76 L, MPV 11.4, Immature Gran % (Auto) 0.600, Neut % (Auto) 89.0 H, Lymph % (Auto) 6.4 L, [place] % (Auto) 3.9, Eos % (Auto) 0.0, Baso % (Auto) 0.1, Absolute Neuts (auto) 12.4 H, Absolute Lymphs (auto) 0.89, Nucleated RBC % 0 12/27/18 04:25: Sodium 139, Potassium 3.9, Chloride 108 H, Carbon Dioxide 24.0, Anion Gap 7, BUN 13, Creatinine 1.06, Estim Creat Clear Calc 72.19, Est GFR (MDRD) Af Amer 89, Est GFR (MDRD) Non-Af 73, BUN/Creatinine Ratio 12.3, Glucose 121 H, Calcium 7.8 L, Triglycerides 26, Cholesterol 51, LDL Cholesterol 22, VLDL Cholesterol 5, HDL Cholesterol 24 L Diagnostic Data Chest X-Ray 12/26/18 05:21 IMPRESSION: Possible mild right lower lobe pneumonia with underlying interstitial lung disease. Electronically Signed: Carmina Rayo MD at 5:59 EST , Service support , Current Medications Acetaminophen (Tylenol) 650 mg PO Q6H PRN PRN PRN Reason: Non-cardiac pain (mod-severe) Hydrocodone Bitart/Acetaminophen ([place] 5mg-325mg) 1 - 2 tablet PO Q4H PRN PRN PRN Reason: Pain Score 4-10/10 Al Hydroxide/Mg Hydroxide (Mylanta Ii) 15 - 30 ml PO Q4H PRN PRN PRN Reason: INDIGESTION Albuterol Sulfate (Ventolin Aerosols) 2.5 mg INHALATION Q2H PRN PRN PRN Reason: dyspnea, wheezing Albuterol/Ipratropium (Duoneb) 3 ml INHALATION Q4HWA.RT [facility] Last Admin: 12/27/18 06:45 Dose: 3 ml Documented by: Dextrose (D50w Syringe) 0 gm IV X1 PRN; Protocol PRN Reason: Hypoglycemia Famotidine (Pepcid) 20 mg PO BID [facility] Last Admin: 12/27/18 09:36 Dose: 20 mg Documented by: Ferrous Sulfate (Ferrous Sulfate) 325 mg PO DAILY@1200 [facility] Last Admin: 12/26/18 12:59 Dose: 325 mg Documented by: Folic Acid (Folic Acid) 1 mg PO DAILY@0800 [facility] Stop: 12/28/18 08:01 Last Admin: 12/27/18 09:36 Dose: 1 mg Documented by: Glucagon () 1 mg IM .X1 PRN PRN Reason: Hypoglycemia Guaifenesin (Robitussin) 20 ml PO Q4H PRN PRN PRN Reason: COUGH Hydralazine HCl (Apresoline Iv) 10 mg IV Q4H PRN PRN PRN Reason: SBP > 160 Sodium Chloride () 500 mls @ 999 mls/hr IV .Q31M ONE Last Infusion: 12/26/18 06:06 Dose: Infused Documented by: Azithromycin 500 mg/ Dextrose 255 mls @ 250 mls/hr IV Q24 [facility] Stop: 01/01/19 11:03 Ceftriaxone Sodium 2 gm/ (Sodium Chloride) 50 mls @ 100 mls/hr IV Q24 [facility] Stop: 01/03/19 10:31 Last Admin: 12/27/18 09:47 Dose: 100 mls/hr Documented by: Sodium Chloride () 250 mls @ 15 mls/hr IV .[id number] PRN PRN Reason: Saline Flush Lactobacillus Acidophilus (Acidophilus) 1 tablet PO DAILY [facility] Last Admin: 12/27/18 09:37 Dose: 1 tablet Documented by: Lorazepam (Ativan) 2 mg PO Q2H PRN PRN; Protocol PRN Reason: CIWA score > 8 but <15 Lorazepam (Ativan) 2 mg PO UD PRN; Protocol PRN Reason: CIWA score >/=15. Lorazepam (Ativan) 2 mg IV Q2H PRN PRN; Protocol PRN Reason: CIWA score > 8 but <15 Lorazepam (Ativan) 2 mg IV UD PRN; Protocol PRN Reason: CIWA score >/=15. Magnesium Hydroxide (Milk Of Magnesia) 30 ml PO DAILY PRN PRN Reason: Constipation Melatonin (Melatonin) 3 mg PO QHS PRN PRN PRN Reason: INSOMNIA Methylprednisolone (Solu-Medrol) 40 mg IV Q8 [facility] Last Admin: 12/27/18 05:15 Dose: 40 mg Documented by: Metoprolol Tartrate (Lopressor (Beta Bryant)) 25 mg PO BID [facility] Last Admin: 12/27/18 09:37 Dose: 25 mg Documented by: Morphine Sulfate () 1 - 2 mg IV Q4H PRN PRN PRN Reason: Pain Score 1-10/10 Multivitamins/Minerals ([facility]amin With Minerals) [facility] Last Admin: 12/27/18 09:36 Dose: 1 tablet Documented by: Nitroglycerin (Nitrostat) 0.4 mg SUBLINGUAL Q5M PRN PRN Reason: CARDIAC/CHEST PAIN Ondansetron HCl (Zofran) 4 mg IV Q8H PRN PRN PRN Reason: NAUSEA/VOMITING Potassium Phos/Sodium Phos (Neutra-Phos Packet) 1 packet PO BID [facility] Last Admin: 12/27/18 09:36 Dose: 1 packet Documented by: Sodium Chloride () 10 - 40 ml IV UD PRN PRN Reason: SALINE FLUSH Last Admin: 12/27/18 05:15 Dose: 10 ml Documented by: Thiamine HCl (Vitamin B1) [facility] Stop: 12/28/18 17:01 Last Admin: 12/27/18 09:37 Dose: 100 mg Documented by: Throat Lozenges (Cepacol Sore Throat Lozenge) 1 lozenge MUCOUS MEM Q2H PRN PRN PRN Reason: Sore Throat/Cough Last Admin: 12/26/18 18:17 Dose: 1 lozenge Documented by: STROKE Vital Signs/Narrative: Vital Signs Pulse BP 12/27/18 09:37 87 151/78 H 11/22/19 07:14 78 Medical Necessity - Tobacco Use Smoking Status: Current every day smoker Tobacco Use: Cigarettes Assessment/Plan All Active Problems Pneumonia (Acute) Hypoxia (Acute) Elevated troponin (Acute) Wheezing (Acute) Acute respiratory failure with hypoxia (Acute) COPD exacerbation (Acute) Hypokalemia (Acute) 1. Acute hypoxic respiratory failure due to community acquired pneumonia and COPD exacerbation * shortness of breath has improved. * on IV rocephin and azithromycin * respiratory panel positive for rhinovirus * urine for strep and legionella were negative * blood cultures pending. sputum culture not done because he is unable to expectorate * sats dropped to 80s when ambulating on room air today * continue breathing treatments and steroids for today, as well as antibiotics * goal is to wean oxygen to maintain sats>90% * 2. Indeterminate troponins * initial troponin was 0.045->0.055->0.057. this may also be due to the pneumonia, as it can cause an elevation in troponins * 2D echo; EF of 60%, with no evidence of diastolic dysfunction, and no regional wall motion abnormalities * will monitor for now * 3. COPD exacerbation due to acute rhinovirus infection: as under 1. breathing treatments and steroids 4. Hypokalemia; resolved. K is 3.9 today. 5. hypomagnesemia, hypophosphatemia:replaced. Will monitor 6. History of iron deficiency anemia: Hb is 11.6 today. continue iron supplements 7. thormbocytopenia: platelets are 76 today. This is likely chronic, from alcohol abuse. WIll monitor. 8. Subacute hypothyroidism: * TSH is 5.47 free T4 is normal at 1.3, free T3 is 1.6. * Will benefit from repeat thyroid studies once acute illness is over. DVT prophylaxis: SCDs. Disposition: for likely dc tomorrow Code Visit Inpatient E&M: 03104 Subs Hosp L2
[2018-12-27 10:37] LABS: Magnesium 1.9 mg/dL (1.6-2.6); Phosphorus 2.2 mg/dL (2.5-4.9)
[2018-12-27] MEDS: Ferrous Sulfate 325 MG Tablet PO (11:16)
[2018-12-28] VITALS (8 sets, daily range): BP systolic 133–170; BP diastolic 76–94; PULSE 67–89; RESP 18; TEMP 36.4–36.5; O2SAT 79–92
[2018-12-28] MEDS: 0.9% Saline Lock 10 ML Syringe IV ×2 (05:15→13:08)
[2018-12-28] MEDS: Ipratropium/Albuterol Sulfate 3 ML AMPUL.NEB INHALATION (06:42)
[2018-12-28 06:56] LABS: Absolute Lymphocyte Count 2.01 X10^3/uL (0.83-4.51); Absolute Neutrophil Count 18.9 X10^3/uL (2.0-7.7); Basophil# 0.03 X10^3/uL; Basophil% 0.1 % (0-1); Hematocrit 39.8 % (40-54); Hemoglobin 13.3 g/dL (13.0-16.5); Lymphocyte # 2.01 X10^3/ul (4.0); Mean Corp Hgb Conc 33.4 g/dL (32-36); Mean Corpuscular Hgb 34.9 pg (27.0-32.0); Mean Corpuscular Volume 104.5 fL (80-94); Mean Platelet Vol. 11.5 fl (6.2-12.0); Monocyte# 1.28 X10^3/uL; Monocyte% 5.7 % (0-10); NRBC Flagged by Analyzer 0 % (0-5); Neutrophil # 18.91 X10^3/uL (2.7-7.7); Neutrophil % 84.4 % (47-70); Platelet Count 114 K/mm3 (150-450); RBC Distribution Width CV 14.4 % (11.6-14.6); RBC Distribution Width SD 54.3 fl (35.1-43.9); Red Blood Count 3.81 M/mm3 (4.6-6.2); White Blood Count 22.4 K/mm3 (4.4-11.0)
[2018-12-28 07:23] LABS: Anion Gap 8 (5-15); BUN 22 mg/dL (7-18); BUN/Creat Ratio 21.6 RATIO (10-20); Calcium,Total 8.3 mg/dL (8.5-10.1); Chloride 110 mmol/L (98-107); Creatinine, Serum 1.02 mg/dL (0.70-1.30); EST Glomerular Filtration Rate 77 mL/min (>60); Est Glom Filt Rate - Afr Amer 93 mL/min (>60); Estimated Creatinine Clearance 75.02 ml/min; Glucose 104 mg/dL (74-106); Potassium 4.1 mmol/L (3.5-5.1); Sodium Level 140 mmol/L (136-145)
[2018-12-28] MEDS: Metoprolol Tartrate 25 MG Tablet PO (08:04)
[2018-12-28] MEDS: Na Biphos/Potassium Phosphate PACKET 1 PACKET PO (08:13)
[2018-12-28] MEDS: Folic Acid 1 MG Tablet PO (08:16)
[2018-12-28] MEDS: Multivitamins,Ther W-Minerals Tablet 1 TABLET PO (08:16)
--- NOTE | 2018-12-28 09:15 | DCINST_ITS ---
- Discharge Diagnoses Current Active Problems: Current Active and Chronic Problems Pneumonia (Acute) Hypoxia (Acute) Elevated troponin (Acute) Wheezing (Acute) Acute respiratory failure with hypoxia (Acute) COPD exacerbation (Acute) HTN (hypertension) (Chronic) Tobacco use (Chronic) Alcohol abuse (Chronic) Hypokalemia (Acute) You will use the following diet at home:: Cardiac Your food should be the consistency of: Regular Your liquids should be the consistency of: Regular/Thin Discharge Activity: Return to Normal Activity Weight Bearing Status: Weight bearing as tolerated Call your doctor if you observe: Fever of 101 or Higher, Shortness of breath, Dizziness, Fainting spells, Swelling in the ankles Instructions: Pneumonia Additional Instructions: counseled to stop smoking. use oxygen 4L for shortness of breath as needed. Allergies/Adverse Reactions: Allergies CATHERINE Inhibitors Allergy (Verified 12/26/18 05:21) Angioedema Medications to take at Discharge Metoprolol Tartrate [Lopressor (beta lisa)] 25 mg PO BID 10/05/13 Ergocalciferol [Vitamin D] 50,000 unit PO QMONTH 12/26/18 Ferrous Sulfate [Iron] 325 mg PO DAILY 12/26/18 Lactobacillus Acidophilus [Probiotic] 1 ea PO DAILY 12/26/18 Albuterol IH (ProAir) [Proair Hfa] 1 - 2 puff INHALATION Q4H PRN PRN #1 inhaler 12/28/18 Amlodipine [Norvasc] 10 mg PO DAILY #30 tab 12/28/18 levoFLOXacin tablet [Levaquin tablet] 750 mg PO DAILY #3 tab 12/28/18 predniSONE tablet 40 mg PO DAILY #10 tab 12/28/18 The following prescriptions were given: levoFLOXacin tablet [Levaquin tablet] 750 mg PO DAILY #3 tab Prescription Printed Amlodipine [Norvasc] 10 mg PO DAILY #30 tab Prescription Printed predniSONE tablet 40 mg PO DAILY #10 tab Prescription Printed Albuterol IH (ProAir) [Proair Hfa] 1 - 2 puff INHALATION Q4H PRN PRN #1 inhaler PRN Reason: Sob &/Or Wheezing Prescription Printed Primary Care Physician: [facility] Doctor,Out of [NON-STAFF] - Test Results: Test results from this visit will be discussed in further detail at your follow- up appointment, if applicable. Please Follow Up With: [facility] When: 1-2 weeks Proposed Discharge Date: 12/28/18
--- NOTE | 2018-12-28 09:19 | PCM.DC.SUM ---
Discharge Date and Diagnosis - Problem List Patient Problems: Active and Suspected Problems Pneumonia (Acute) Hypoxia (Acute) Elevated troponin (Acute) Wheezing (Acute) Acute respiratory failure with hypoxia (Acute) COPD exacerbation (Acute) Hypokalemia (Acute) Date of Admission: 12/26/18 Date of Discharge: 12/28/18 - Primary Discharge Diagnosis Active and Suspected Problems Pneumonia (Acute) Hypoxia (Acute) Elevated troponin (Acute) Wheezing (Acute) Acute respiratory failure with hypoxia (Acute) COPD exacerbation (Acute) Hypokalemia (Acute) URTI due to rhinovirus infection - Secondary Discharge Diagnosis Chronic Problems HTN (hypertension) (Chronic) Tobacco use (Chronic) Alcohol abuse (Chronic) Hospital Course and Treatment Imaging Results: Diagnostic Data Chest X-Ray 12/26/18 05:21 IMPRESSION: Possible mild right lower lobe pneumonia with underlying interstitial lung disease. Electronically Signed: Carmina Rayo MD at 5:59 EST , Service support , Operations: None Procedures: 2-D Echocardiogram Summary of Care Provided: The patient is a 67 year old M with an extensive past medical history as listed which includes nicotine did dependence of at least 50 pack years. He was admitted to the ED on 12/26/2018 with a complaint of rhinorrhea, congestion and coughing. Patient had been having symptoms for about 2 weeks prior to admission and initially improved but worsened over the last 3 days prior to admission with worsening shortness of breath and associated chills but no fever. He also had a worsening cough productive of greenish sputum and wheezing. He had been using his nebulizer at home with no improvement so he called the EMS. On admission, temperature was 98.3, heart rate was 103 respiratory rate was 24 with blood pressure 171/73 he was saturating at 91% on room air. CBC showed no leukocytosis with white cell count of 8. Initial troponin was 0.046 and chest x-ray showed possible right middle lobe pneumonia with underlying interstitial lung disease. He also tested positive for rhinovirus. He was started on IV ceftriaxone and azithromycin as well as breathing treatments and steroids. He was managed for acute hypoxic respiratory failure due to community-acquired pneumonia and suspected acute on chronic COPD exacerbation due to his extensive smoking history. He was initially admitted in the ICU and was subsequently transferred out of the stabilized. Patient symptoms gradually improved. And possibly stated that patient's initial troponin was 0.045 and trended up to 0.055 and 0.057. He denied any chest pain or any cardiac symptoms and this was thought to likely be due to his pneumonia as this could cause an elevation in troponins. 2D echo was done which showed EF of 60% with no evidence of diastolic function and no regional wall motion abnormalities. However he did remain short of breath and qualified for home oxygen on day of discharge. With ambulation his saturation dropped to 79% on room air and at rest was 88%. He was requiring up to 4 L of oxygen with ambulation. Patient was initially not agreeable to home oxygen but subsequently agreed to use home oxygen. He remained stable and was discharged home on 12/28/2018 with a prescription for p.o. Levaquin for 3 days and also with a prescription for home oxygen. He is also to follow-up with his primary care doctor at the [place] where he plans to follow-up and to be referred to a analytics developer in the [place] system which is where he prefers to follow-up. Patient seen and examined prior to discharge. He was upset because he said he had been told he could not leave his room on account of him having tested positive for rhinovirus. Shortness of breath had improved and he felt well. Patient was counseled that it would be good for him to quit smoking but patient stated that having smoked for the past 50 years, he could not quit cold turkey and will try to work on it once he was discharged. Review of systems otherwise negative. Labs and vitals reviewed. Home medication reviewed and reconciled. o/e: Vital Signs Height 6 ft Weight: 190 lb 7.67 oz Weight in Pounds 190.5 lbs Pulse Ox [AMBULATION with 90 Oxygen] Pulse Ox [AMBULATING on Room 79 Air] Pulse Ox [At REST on Room Air] 88 Pulse Ox 92 Temperature 97.5 F Pulse Rate 89 Respiratory Rate 18 Blood Pressure 170/94 Blood Pressure Position Sitting [] General: Alert, Oriented x3, Cooperative HEENT: Atraumatic, PERRLA, EOMI, Normocephalic Oral: Dry Mucosa Neck: Supple, No JVD, Negative Carotid Bruits Lungs: - - decreased breath sounds in all lung mathias, with no wheezes or crackles. On 2L of oxygen. Cardiovascular: Regular rate, Regular Rhythm, Normal S1, Normal S2, No murmurs Abdomen: Bowel Sounds Present, Soft, Non Tender, Non-Distended, No Hepato-splenomegaly Extremities: No clubbing, No cyanosis, No edema, Capillary Refill Less than 3 Seconds Skin: No rashes, No breakdown Musculoskeletal: No Tenderness to Palpation of Joints or Extremities Lymphatic: No Cervical, Supraclavicular, or Inguinal Adenopathy Neurological: Cranial nerves II-XII grossly intact, Neuro grossly intact, Motor Exam 5/5 strength throughout Psych/Mental Status: Normal Affect, Appropriate, Alert and oriented to time, place, person, mood and affect Plan as above. Patient blood pressure remained elevated during the admission and was started on p.o. amlodipine 10 mg daily. He was discharged with a script for PO amlodipine 10mg daily as well. Patient Problems: Active and Suspected Problems Pneumonia (Acute) Hypoxia (Acute) Elevated troponin (Acute) Wheezing (Acute) Acute respiratory failure with hypoxia (Acute) COPD exacerbation (Acute) Hypokalemia (Acute) - Physical Exam Vitals/I&O's: Vital Signs Temp Pulse Resp BP Pulse Ox 97.5 F L 89 18 170/94 H 88 12/28/18 07:50 12/28/18 08:04 12/28/18 07:50 12/28/18 08:04 12/28/18 08:28 Oxygen Flow Rate (L/min) [ 4 AMBULATION with Oxygen] Oxygen Flow Rate (L/min) 2 Oxygen Delivery Method Room Air Weight: 190 lb 7.67 oz Body Mass Index (BMI) 25.8 Intake and Output for Last 24 Hours 12/26/18 12/27/18 12/28/18 23:59 23:59 23:59 Intake Total 1795 / 2035 1645 / 1645 200 / 200 Output Total 1000 / 1000 Balance 1795 / 1735 645 / 645 200 / 200 Microbiology Past 72 Hours 12/26/18 08:50 Mucosa - Nose Respiratory Panel (PCR) - Final Rhinovirus 12/26/18 08:20 Urine, Clean Catch Streptococcus pneumoniae Antigen (M - Final 12/26/18 08:20 Urine, Clean Catch Legionella Antigen - Final Laboratory Results 12/27/18 04:25: Phosphorus 2.2 L, Magnesium 1.9 12/28/18 05:39: WBC 22.4 H, RBC 3.81 L, Hgb 13.3, Hct 39.8 L, MCV 104.5 H, MCH 34.9 H, MCHC 33.4, RDW Std Deviation 54.3 H, RDW Coeff of Katie 14.4, Plt Count 114 L, MPV 11.5, Immature Gran % (Auto) 0.800, Neut % (Auto) 84.4 H, Lymph % (Auto) 9.0 L, Cedar % (Auto) 5.7, Eos % (Auto) 0.0, Baso % (Auto) 0.1, Absolute Neuts (auto) 18.9 H, Absolute Lymphs (auto) 2.01, Nucleated RBC % 0 12/28/18 05:39: Sodium 140, Potassium 4.1, Chloride 110 H, Carbon Dioxide 22.0, Anion Gap 8, BUN 22 H, Creatinine 1.02, Estim Creat Clear Calc 75.02, Est GFR (MDRD) Af Amer 93, Est GFR (MDRD) Non-Af 77, BUN/Creatinine Ratio 21.6 H, Glucose 104, Calcium 8.3 L Current Medications Acetaminophen (Tylenol) 650 mg PO Q6H PRN PRN PRN Reason: Non-cardiac pain (mod-severe) Hydrocodone Bitart/Acetaminophen ([place] 5mg-325mg) 1 - 2 tablet PO Q4H PRN PRN PRN Reason: Pain Score 4-10/10 Al Hydroxide/Mg Hydroxide (Mylanta Ii) 15 - 30 ml PO Q4H PRN PRN PRN Reason: INDIGESTION Albuterol Sulfate (Ventolin Aerosols) 2.5 mg INHALATION Q2H PRN PRN PRN Reason: dyspnea, wheezing Albuterol/Ipratropium (Duoneb) 3 ml INHALATION Q4HWA.RT [facility] Last Admin: 12/28/18 06:42 Dose: 3 ml Documented by: Amlodipine Besylate (Norvasc) 10 mg PO X1 ONE Stop: 12/28/18 09:19 Dextrose (D50w Syringe) 0 gm IV X1 PRN; Protocol PRN Reason: Hypoglycemia Famotidine (Pepcid) 20 mg PO BID [facility] Last Admin: 12/28/18 08:16 Dose: Not Given Documented by: Ferrous Sulfate (Ferrous Sulfate) 325 mg PO DAILY@1200 [facility] Last Admin: 12/27/18 11:16 Dose: 325 mg Documented by: Glucagon () 1 mg IM .X1 PRN PRN Reason: Hypoglycemia Guaifenesin (Robitussin) 20 ml PO Q4H PRN PRN PRN Reason: COUGH Hydralazine HCl (Apresoline Iv) 10 mg IV Q4H PRN PRN PRN Reason: SBP > 160 Sodium Chloride () 500 mls @ 999 mls/hr IV .Q31M ONE Last Infusion: 12/26/18 06:06 Dose: Infused Documented by: Azithromycin 500 mg/ Dextrose 255 mls @ 250 mls/hr IV Q24 [facility] Stop: 01/01/19 11:03 Last Infusion: 12/27/18 12:26 Dose: Infused Documented by: Ceftriaxone Sodium 2 gm/ (Sodium Chloride) 50 mls @ 100 mls/hr IV Q24 [facility] Stop: 01/03/19 10:31 Last Infusion: 12/27/18 11:11 Dose: Infused Documented by: Sodium Chloride () 250 mls @ 15 mls/hr IV .S30J30H PRN PRN Reason: Saline Flush Lactobacillus Acidophilus (Acidophilus) 1 tablet PO DAILY [facility] Last Admin: 12/27/18 09:37 Dose: 1 tablet Documented by: Lorazepam (Ativan) 2 mg PO Q2H PRN PRN; Protocol PRN Reason: CIWA score > 8 but <15 Lorazepam (Ativan) 2 mg PO UD PRN; Protocol PRN Reason: CIWA score >/=15. Lorazepam (Ativan) 2 mg IV Q2H PRN PRN; Protocol PRN Reason: CIWA score > 8 but <15 Lorazepam (Ativan) 2 mg IV UD PRN; Protocol PRN Reason: CIWA score >/=15. Magnesium Hydroxide (Milk Of Magnesia) 30 ml PO DAILY PRN PRN Reason: Constipation Melatonin (Melatonin) 3 mg PO QHS PRN PRN PRN Reason: INSOMNIA Methylprednisolone (Solu-Medrol) 40 mg IV Q8 [facility] Last Admin: 12/28/18 05:15 Dose: 40 mg Documented by: Metoprolol Tartrate (Lopressor (Beta Bryant)) 25 mg PO BID [facility] Last Admin: 12/28/18 08:04 Dose: 25 mg Documented by: Morphine Sulfate () 1 - 2 mg IV Q4H PRN PRN PRN Reason: Pain Score 1-10/10 Multivitamins/Minerals (Multivitamin With Minerals) [facility] Admin: 12/28/18 08:16 Dose: 1 tablet Documented by: Nitroglycerin (Nitrostat) 0.4 mg SUBLINGUAL Q5M PRN PRN Reason: CARDIAC/CHEST PAIN Ondansetron HCl (Zofran) 4 mg IV Q8H PRN PRN PRN Reason: NAUSEA/VOMITING Potassium Phos/Sodium Phos (Neutra-Phos Packet) 1 packet PO BID [facility] Last Admin: 12/28/18 08:13 Dose: 1 packet Documented by: Sodium Chloride () 10 - 40 ml IV UD PRN PRN Reason: SALINE FLUSH Last Admin: 12/28/18 05:15 Dose: 10 ml Documented by: Thiamine HCl (Vitamin B1) [facility] Stop: 12/28/18 17:01 Last Admin: 12/27/18 18:13 Dose: 100 mg Documented by: Throat Lozenges (Cepacol Sore Throat Lozenge) 1 lozenge MUCOUS MEM Q2H PRN PRN PRN Reason: Sore Throat/Cough Last Admin: 12/26/18 18:17 Dose: 1 lozenge Documented by: Discharge Diet: Low fat/ Low Cholesterol Discharge Activity: Return to Normal Activity Weight Bearing Status: Weight bearing as tolerated Call your doctor if you observe: Fever of 101 or Higher, Shortness of breath, Dizziness, Fainting spells, Swelling in the ankles Home Medications: Medications to take at Discharge Metoprolol Tartrate [Lopressor (beta bryant)] 25 mg PO BID 10/05/13 Ergocalciferol [Vitamin D] 50,000 unit PO QMONTH 12/26/18 Ferrous Sulfate [Iron] 325 mg PO DAILY 12/26/18 Lactobacillus Acidophilus [Probiotic] 1 ea PO DAILY 12/26/18 Albuterol IH (ProAir) [Proair Hfa] 1 - 2 puff INHALATION Q4H PRN PRN #1 inhaler 12/28/18 Amlodipine [Norvasc] 10 mg PO DAILY #30 tab 12/28/18 levoFLOXacin tablet [Levaquin tablet] 750 mg PO DAILY #3 tab 12/28/18 predniSONE tablet 40 mg PO DAILY #10 tab 12/28/18 Following Prescrptions Were Given to Patient: levoFLOXacin tablet [Levaquin tablet] 750 mg PO DAILY #3 tab Prescription Printed Amlodipine [Norvasc] 10 mg PO DAILY #30 tab Prescription Printed predniSONE tablet 40 mg PO DAILY #10 tab Prescription Printed Albuterol IH (ProAir) [Proair Hfa] 1 - 2 puff INHALATION Q4H PRN PRN #1 inhaler PRN Reason: Sob &/Or Wheezing Prescription Printed Primary Care Physician: Isabell Doctor,Out of [NON-STAFF] - Please Follow Up With: [facility] When: 1-2 weeks Patient Instructions: Pneumonia Disposition: Home Minutes spent on discharge:: 40 Patient Condition:: Stable Medical Necessity - Tobacco Use Smoking Status: Current every day smoker Tobacco Use: Cigarettes Meaningful Use Info Meaningful Use Diagnoses (Choose all that apply): None applicable Code Visit Inpatient E&M: 70687 Disch Hosp
[2018-12-28] MEDS: Thiamine Hydrochloride 100 MG Tablet PO (09:38)
[2018-12-28] MEDS: amLODIPine 10 MG Tablet PO (09:39)
--- NOTE | 2018-12-28 10:32 | CM.UR ---
Was notified by CAL Zamora that patient was being discharged today. States he needs home o2 as he is still requiring 4 liters o2 per nc to stay above 90%. [facility]. Discussed with the patient the options as he only has [facility] Explained that for his O2 to be covered that he would need to get it through the [facility] however if he smokes the [facility] will NOT supply O2 d/t risk. He continues to smoke and has smoked for 54 years. States he has a difficult time quitting. States he cannot do the patches as they split his skin open. States he asked for Chantix [facility] the [facility] however they weren't giving it out then, about 3 years ago. I recommended he double check with them. I also recommended that if they cannot get Chantix that he should try the other options such as gum, lozenges, therapy or Wellbutrin. He said he did not know that he had copd. Explained that he did and that if he continues to smoke it will continue to get worse. He is agreeable to self pay for oxygen as he does not plan on needing it for long. States he will relax at home because he doesn't want to haul around a tank everywhere he goes. Explained that if he continues to smoke he will eventually need oxygen all the time. he verbalized understanding. Explained that I will contact [facility] to see how much self pay oxygen would cost for him. Called [employer] answering service at this time and am awaiting a return call. Plan is to discharge today after o2 set up. Julian Baltazar RN, CCM.
--- NOTE | 2018-12-28 13:35 | NURSING ---
This RN notified Dr. Gage that pt refusing to wait for home O2 to be set up, stating it is too expensive. Pt states he will not wait for CM to make calls to find other home oxygen options. Dr. Gage states doesn't need to sign AMA papers.
== END 2018-12-28 13:30 | disposition home or self-care (01) | DRG 193 ==
LOC: ED 06:20 → ICU 07:16 → PCU 12-27 16:39
PROVIDERS: Admitting Provider Family Medicine; Emergency Provider Emergency Medicine; Visit Provider Student in an Organized Health Care Education/Training Program
DX: J18.9 Pneumonia, unspecified organism (principal); J96.01 Acute respiratory failure with hypoxia; J44.1 Chronic obstructive pulmonary disease with (acute) exacerbation; J44.0 Chronic obstructive pulmonary disease with (acute) lower respiratory infection; J06.9 Acute upper respiratory infection, unspecified; B97.89 Other viral agents as the cause of diseases classified elsewhere; E87.6 Hypokalemia; D69.6 Thrombocytopenia, unspecified; F10.10 Alcohol abuse, uncomplicated; D50.9 Iron deficiency anemia, unspecified; F17.210 Nicotine dependence, cigarettes, uncomplicated; R79.89 Other specified abnormal findings of blood chemistry; E83.42 Hypomagnesemia; E83.39 Other disorders of phosphorus metabolism; E02 Subclinical iodine-deficiency hypothyroidism
CPT/HCPCS: 36415; 36600; 71045; 80048; 80061; 82803; 83605; 83735; 83880; 84100; 84439; 84443; 84481; 84484; 85025; 87040; 87449; 87633; 93005; 93306; 94640; 99251; 99285; J7030; Q9957; A4216; C8929; G0463; J0696

== ENCOUNTER → 2019-01-21 09:21 | Outpatient (CLI) | payer OTHER, SELFPAY ==
[2018-12-26 07:36] VITALS: BMI 25.8
--- NOTE | 2019-01-21 09:28 | US_ITS ---
STUDY: ABDOMINAL ULTRASOUND - RIGHT UPPER QUADRANT REASON FOR VISIT: Male, 68 years old elevated liver enzymes. TECHNIQUE: Ultrasound evaluation of the right upper quadrant was performed with real-time and static pineda-scale imaging. TECHNICAL QUALITY: Adequate. COMPARISON: None. FINDINGS: Liver: The liver measures 17.1 cm. There is increased echogenicity consistent with fatty infiltration. The bile ducts are within normal limits. There is hepatic color flow. The direction of portal flow is hepatopetal. There is no demonstrated mass lesion. Small amount of perihepatic fluid. Gallbladder: There is a contracted gallbladder. The gallbladder wall is thickened and measures 4.8 mm. There is a negative sonographic Gallagher''s sign. There is no pericholecystic fluid. There is a contracted stone filled gallbladder. Common Bile Duct (C.B.D.): The common bile duct measures 2.0 mm. Pancreas: There is nonvisualization of the pancreas due to overlying bowel gas. Right Kidney: Normal size of the right kidney. The right kidney measures 11 cm x 5.3 cm x 4.8 cm. Normal renal cortex. The right cortex measures 2.0 cm. There is no demonstrated renal mass or cyst. There is no right hydronephrosis. US/Liver IMPRESSION: Contracted stone filled gallbladder. Fatty infiltration of the liver. Electronically Signed: Magnus Garcia, at 12:11 EST , Service support ,
--- NOTE | 2019-01-21 09:35 | US_ITS ---
STUDY: ABDOMINAL ULTRASOUND - LEFT UPPER QUADRANT REASON FOR VISIT: Male, 68 years old abnormal labs. TECHNIQUE: Ultrasound evaluation of the right upper quadrant was performed with real-time and static pineda-scale imaging. TECHNICAL QUALITY: Limited. Examination limited by bowel gas. COMPARISON: 07/20/2014. FINDINGS: The spleen measures 12.4 x 5.3 x 6.0 cm and is normal. The right kidney measures 10.8 x 5.1 x 6.2 cm. The right cortex measures 2.0 cm. No evidence of mass or hydronephrosis. A small echogenic focus demonstrated within the middle pole of the left kidney measuring 8 x 6 x 6 minutes which could represent a stone versus volume averaging from sinus fat. Trace amount of ascites. US/Spleen IMPRESSION: Possible stone within the left kidney otherwise normal left-sided renal ultrasound. Electronically Signed: Carmina Rayo MD at 2:21 EST , Service support ,
== END ==
DX: R79.89 Other specified abnormal findings of blood chemistry (principal)
CPT/HCPCS: 76705

== ENCOUNTER → 2019-12-02 10:15 | Outpatient (CLI) | payer OTHER, SELFPAY ==
[2018-12-26 07:36] VITALS: BMI 25.8
--- NOTE | 2019-12-02 10:19 | US_ITS ---
STUDY: ABDOMINAL ULTRASOUND REASON FOR EXAM: Male, 68 years old. ELEVATED BILIRUBIN, THROMBOCYTOPENIA. TECHNIQUE: Transabdominal ultrasound was performed with real-time and static pineda scale imaging. TECHNICAL QUALITY: Limited. Examination limited due to a combination of factors including body habitus and bowel gas. COMPARISON: Upper quadrant ultrasound dated January 21, 2019. FINDINGS: Liver: Limited visualization of the periphery of the liver due to bowel gas extremities regions. The liver measures 15.2 cm. There is increased echogenicity consistent with fatty infiltration. The bile ducts are within normal limits. There is hepatic color flow. The direction of portal flow is hepatopetal. There is no demonstrated mass lesion. Gallbladder: There is a contracted gallbladder. The gallbladder wall measures 2 mm. There is no pericholecystic fluid. There are multiple echogenic structures within the gallbladder, consistent with multiple gallstones. Common Bile Duct (C.B.D.): The common bile duct measures 4 mm. Pancreas: There is nonvisualization of the pancreas. Spleen: Mild splenomegaly is present. The spleen measures 13.8 x 6.4 x 6.6 cm. Right Kidney: Normal size of the right kidney. The right kidney measures 9.6 x 5.7 x 5.0 cm. Normal renal cortex. There is no demonstrated renal mass or cyst. There is no right hydronephrosis. Left Kidney: Normal size of the left kidney. The left kidney measures 10.9 x 4.8 x 5.9 cm. Normal renal cortex. There is no demonstrated renal mass or cyst. There is no left hydronephrosis. Aorta: 2.4 cm maximally I.V.C.: The IVC is obscured. There is no ascites. US/Abdomen Complete IMPRESSION: 1. Multiple gallstones 2. Mild splenomegaly 3. Nonvisualization of the pancreas 4. CT or MRI of the abdomen can be obtained for further assessment. Electronically Signed: Maximus Olivares MD at 23:48 EDT , Service support ,
== END ==
DX: D69.6 Thrombocytopenia, unspecified (principal); E80.6 Other disorders of bilirubin metabolism
CPT/HCPCS: 76700

== ENCOUNTER 2020-08-26 05:39 | Inpatient (IN) | payer OTHER, MEDICARE, SELFPAY ==
[2018-12-26 07:36] VITALS: BMI 25.8
[2020-08-26] VITALS (26 sets, daily range): BP systolic 92–162; BP diastolic 49–82; PULSE 94–104; RESP 14–24; TEMP 36.6–38.4; O2SAT 82–99; BMI 34.4; BMI 32.1
--- NOTE | 2020-08-26 06:34 | RAD_ITS ---
STUDY: X-RAY CHEST REASON FOR EXAM: Male, 69 years old. Dyspnea TECHNIQUE: Frontal view of the chest COMPARISON: 12/26/18 FINDINGS: There are mild congestive changes noted. The lungs are otherwise clear. There are no pleural effusions. There is no pneumothorax. The heart is enlarged, but stable in size. The visualized osseous structures are within normal limits. RAD/Chest 1 View (Portable) IMPRESSION: Mild pulmonary vascular congestion. Electronically Signed: Presley Jeronimo MD at 8:17 EDT Tel , Service support ,
--- NOTE | 2020-08-26 06:34 | EKG12_ITS ---
Test Reason : SOB Blood Pressure : / mmHG Vent. Rate : 095 BPM Atrial Rate : 094 BPM P-R Int : 000 ms QRS Dur : 078 ms QT Int : 360 ms P-R-T Axes : 000 024 051 degrees QTc Int : 452 ms Sinus vs Ectopic Atrial Rhythm Nonspecific ST abnormality Abnormal ECG Confirmed by ROXANNE AHN, BRITTNEY ([id number]), fashion editor ELO PINK ([id number]) on 08/30/2020 1:14:51 PM Referred By: JOSE ALEJANDRO Confirmed By:BRITTNEY OLIVEIRA MD
--- NOTE | 2020-08-26 06:36 | EX.ED.DYSGE1 ---
HPI <Dr. Jake Shea DO - Last Filed: 08/26/20 06:58> History of Present Illness Chief Complaint: Shortness of Breath Informant: patient and EMS Narrative Narrative: 69-year-old male presents to the emergency department for the evaluation of dyspnea and hematuria. He has a history of COPD and smoked for many years before quitting about 4 months ago. In December 2018 he was admitted to the hospital with COPD exacerbation and was recommended that he go home on home oxygen. He declined per the notes at that time and now states that he never refused getting home oxygen. Irregardless the patient has been living at home going to the [facility] in [place] for his care. He notes that during the night his breathing acutely worsened. At around the same time he began to experience hematuria. He denies any clots. He is not on any blood thinners. Patient denies any significant cough. He notes his lower extremities are more swollen over the past couple weeks as are his legs. He denies any known prior DVT or PE history. No known history of malignancy. PFSH <Dr. Jake Shea DO - Last Filed: 08/26/20 06:58> PFSH Medical History Alcohol abuse Congestive heart failure (CHF) COPD (chronic obstructive pulmonary disease) HTN (hypertension) Tobacco use Home Medications metoprolol tartrate 25 mg PO BID 10/05/13 [History Last Taken Unknown] Lactobacillus acidophilus 1 ea PO DAILY 12/26/18 [History Last Taken Unknown] ergocalciferol (vitamin D2) 50,000 unit PO QMONTH 12/26/18 [History Last Taken Unknown] ferrous sulfate 325 mg PO DAILY 12/26/18 [History Last Taken Unknown] albuterol sulfate 1 - 2 puff INHALATION Q4H PRN PRN #1 inhaler 12/28/18 [Rx Last Taken Unknown] amlodipine 10 mg PO DAILY #30 tab 12/28/18 [Rx Last Taken Unknown] levofloxacin 750 mg PO DAILY #3 tab 12/28/18 [Rx Last Taken Unknown] prednisone 40 mg PO DAILY #10 tab 12/28/18 [Rx Last Taken Unknown] Allergy/AdvReac Type Severity Reaction Status Date / Time CATHERINE Inhibitors Allergy Angioedema Verified 12/26/18 05:21 Social History (Updated 08/26/20 @ 06:[address] Jake [place], DO) Smoking Status: Former smoker substance use type: does not use ROS <Dr. Jake Shea DO - Last Filed: 08/26/20 06:58> ROS ED Constitutional Constitutional ED: Denies chills or weight loss Eyes Eyes: Denies change in vision or diplopia ENT ENT ED: Denies ear pain, rhinorrhea or sore throat Cardiovascular Cardiovascular: Denies chest pain, orthopnea, palpitations or racing heartbeat Respiratory/Chest Respiratory/Chest: Reports dyspnea and dyspnea on exertion; Denies cough or orthopnea Gastrointestinal Gastrointestinal: Denies abdominal pain, diarrhea, nausea or vomiting Genitourinary Genitourinary ED: Reports hematuria; Denies dysuria or urinary frequency Musculoskeletal Musculoskeletal: Reports other Details: Upper and lower extremity swelling ; Denies arthralgias or myalgias Integumentary Denies abscess or rash Neurologic Neurologic: Denies headache(s) or weakness Psychiatric Psychiatric: Denies anxiety, depression, suicidal ideation or suicidal thoughts Endocrine Endocrinology: Denies polydipsia, polyphagia or polyuria Allergic/Immunologic Allergic/Immunologic ED: Denies mouth swelling, tongue swelling or urticaria EXAM <Dr. Jake Shea, DO - Last Filed: 08/26/20 06:58> Physical Exam Const Vital Signs: 08/26/20 05:40 08/26/20 05:53 08/26/20 05:54 Temperature 99.7 F H 99.7 F H Temperature Source Temporal Temporal Pulse Rate 95 95 Respiratory Rate 24 H 24 H Respiratory Effort Short of Breath Accessory Muscle Use Respiratory Pattern Tachypnea Blood Pressure 162/75 H 162/75 H Blood Pressure Mean 104 104 Pulse Ox 88 88 Oxygen Delivery Method Nasal Cannula Room Air Room Air Oxygen Flow Rate (L/min) 4 4 08/26/20 07:07 08/26/20 08:09 08/26/20 10:36 Temperature 97.8 F 97.9 F Temperature Source Temporal Temporal Pulse Rate 97 99 Respiratory Rate 22 H 24 H Respiratory Effort Respiratory Pattern Blood Pressure 144/68 H 134/66 H Blood Pressure Mean 93 88 Pulse Ox 99 97 99 Oxygen Delivery Method Nasal Cannula Nasal Cannula Nasal Cannula Oxygen Flow Rate (L/min) 4 4 4 08/26/20 11:11 Temperature 99.3 F H Temperature Source Temporal Pulse Rate 98 Respiratory Rate 21 H Respiratory Effort Respiratory Pattern Blood Pressure 130/82 H Blood Pressure Mean 98 Pulse Ox 98 Oxygen Delivery Method Nasal Cannula Oxygen Flow Rate (L/min) 4 Positive well nourished, well developed, obese and unkempt General Appearance ED: unkempt and well developed Nutritional Appearance: obese HEENT Reports normocephalic, head/scalp atraumatic and moist mucous membranes Eyes PERRL and EOMs intact bilaterally Neck no lymphadenopathy, supple and no JVD Resp clear to auscultation bilaterally Resp Narrative: Patient appears dyspneic Cardio regular rate, regular rhythm and no murmurs GI normal to inspection, nondistended, normoactive bowel sounds and non-tender Palpation: soft Back/Spine no CVA tenderness and normal ROM Extremity normal to inspection Extremity Narrative: There is edema to the forearms and hands as well as the bilateral lower extremity General Extremety ED: Yes edema General Extremity: edema Neuro oriented x3 and CN's II-XII intact bilaterally Sensorium / Orientation: alert Motor Exam: strength 5/5 throughout Psych mental status grossly normal Appearance: unkempt Mood & Affect: Negative for depressed or tearful Skin no rashes or lesions noted and no wounds <Dr. Oscar Guthrie MD - Last Filed: 08/26/20 11:20> Physical Exam Const Vital Signs: 08/26/20 05:40 08/26/20 05:53 08/26/20 05:54 Temperature 99.7 F H 99.7 F H Temperature Source Temporal Temporal Pulse Rate 95 95 Respiratory Rate 24 H 24 H Respiratory Effort Short of Breath Accessory Muscle Use Respiratory Pattern Tachypnea Blood Pressure 162/75 H 162/75 H Blood Pressure Mean 104 104 Pulse Ox 88 88 Oxygen Delivery Method Nasal Cannula Room Air Room Air Oxygen Flow Rate (L/min) 4 4 08/26/20 07:07 08/26/20 08:09 08/26/20 10:36 Temperature 97.8 F 97.9 F Temperature Source Temporal Temporal Pulse Rate 97 99 Respiratory Rate 22 H 24 H Respiratory Effort Respiratory Pattern Blood Pressure 144/68 H 134/66 H Blood Pressure Mean 93 88 Pulse Ox 99 97 99 Oxygen Delivery Method Nasal Cannula Nasal Cannula Nasal Cannula Oxygen Flow Rate (L/min) 4 4 4 08/26/20 11:11 Temperature 99.3 F H Temperature Source Temporal Pulse Rate 98 Respiratory Rate 21 H Respiratory Effort Respiratory Pattern Blood Pressure 130/82 H Blood Pressure Mean 98 Pulse Ox 98 Oxygen Delivery Method Nasal Cannula Oxygen Flow Rate (L/min) 4 MDM <Dr. Jake Shea, DO - Last Filed: 08/26/20 06:58> [facility] Narrative Medical decision making narrative: Initially the patient curses at me stating that he only wants a glass of water. I informed him that he may in fact have a glass of water but that took an off a lot of billet shearer to could bring him to the emergency department if he is only going to have a glass of water. After about 20 minutes in the room the patient urinated shanta blood and was then willing to speak with me and was appropriate. Upon ambulation to the bathroom the patient's oxygen saturation is 70% and is he noticeably more tachypneic. He was given supplemental oxygen. Lab Data Labs: Laboratory Results - last 24 hr 08/26/20 08/26/20 08/26/20 06:50 06:50 06:50 WBC 8.9 RBC 2.54 L Hgb 9.6 L Hct 29.8 L MCV 117.3 H MCH 37.8 H MCHC 32.2 RDW Std Deviation 69.0 H RDW Coeff of Katie 16.0 H Plt Count 60 L MPV 11.7 Immature Gran % (Auto) 0.900 Neut % (Auto) 84.2 H Lymph % (Auto) 6.2 L [place] % (Auto) 6.5 Eos % (Auto) 1.9 Baso % (Auto) 0.3 Absolute Neuts (auto) 7.5 Absolute Lymphs (auto) 0.55 L Nucleated RBC % 0 Platelet Estimate MKD DEC PT 26.3 H INR 2.5 APTT 33.4 Sodium 140 Potassium 4.7 Chloride 114 H Carbon Dioxide 20.0 L Anion Gap 6 BUN 11 Creatinine 1.36 H Estim Creat Clear Calc 54.68 Est GFR (MDRD) Af Amer 66 Est GFR (MDRD) Non-Af 55 L BUN/Creatinine Ratio 8.1 L Glucose 98 Calcium 7.9 L Total Bilirubin 4.00 H AST 86 H ALT 42 Alkaline Phosphatase 104 Troponin I High Sens 94.1 H* Total Protein 7.3 Albumin 1.9 L Globulin 5.4 H Albumin/Globulin Ratio 0.4 L Radiography Diagnostic Testing: Radiology Impression Chest X-Ray 08/26/20 06:34 IMPRESSION: Mild pulmonary vascular congestion. Electronically Signed: Presley Jeronimo MD at 8:17 EDT Tel , Service support , Chest CTA 08/26/20 09:04 IMPRESSION: 1. No central or segmental pulmonary embolism. 2. Cirrhosis. Upper abdominal ascites. Mild splenomegaly. 3. Gynecomastia. 4. Body wall edema. 5. Pulmonary fibrotic densities. Electronically Signed: Leo Benito MD ([place]) at 10:29 EDT , Service support , EKG Initial EKG: Attestation: I personally reviewed and interpreted this EKG as follows: Comments: EKG demonstrates sinus rhythm at a rate of 95 bpm. <Dr. Oscar Guthrie MD - Last Filed: 08/26/20 11:20> [facility] MDM Narrative Medical decision making narrative: Jerri-patient turned over to me. He is improved on oxygen, he is given nebulizers, he likely has COPD I gave him steroids. His troponin slightly elevated. He has a low-grade fever but he does not have a pneumonia I will be cautious and give antibiotics. He also has gross hematuria which may also be a cause of his infection. He will need a urological consult to rule out bladder or other sorts of cancers, he will be admitted for his hypoxia. Lab Data Labs: Laboratory Results - last 24 hr 08/26/20 08/26/20 08/26/20 06:50 06:50 06:50 WBC 8.9 RBC 2.54 L Hgb 9.6 L Hct 29.8 L MCV 117.3 H MCH 37.8 H MCHC 32.2 RDW Std Deviation 69.0 H RDW Coeff of Katie 16.0 H Plt Count 60 L MPV 11.7 Immature Gran % (Auto) 0.900 Neut % (Auto) 84.2 H Lymph % (Auto) 6.2 L [place] % (Auto) 6.5 Eos % (Auto) 1.9 Baso % (Auto) 0.3 Absolute Neuts (auto) 7.5 Absolute Lymphs (auto) 0.55 L Nucleated RBC % 0 Platelet Estimate MKD DEC PT 26.3 H INR 2.5 APTT 33.4 Sodium 140 Potassium 4.7 Chloride 114 H Carbon Dioxide 20.0 L Anion Gap 6 BUN 11 Creatinine 1.36 H Estim Creat Clear Calc 54.68 Est GFR (MDRD) Af Amer 66 Est GFR (MDRD) Non-Af 55 L BUN/Creatinine Ratio 8.1 L Glucose 98 Calcium 7.9 L Total Bilirubin 4.00 H AST 86 H ALT 42 Alkaline Phosphatase 104 Troponin I High Sens 94.1 H* Total Protein 7.3 Albumin 1.9 L Globulin 5.4 H Albumin/Globulin Ratio 0.4 L Radiography Diagnostic Testing: Radiology Impression Chest X-Ray 08/26/20 06:34 IMPRESSION: Mild pulmonary vascular congestion. Electronically Signed: Presley Jeronimo MD at 8:17 EDT Tel , Service support , Chest CTA 08/26/20 09:04 IMPRESSION: 1. No central or segmental pulmonary embolism. 2. Cirrhosis. Upper abdominal ascites. Mild splenomegaly. 3. Gynecomastia. 4. Body wall edema. 5. Pulmonary fibrotic densities. Electronically Signed: Leo Benito MD (Brooks) at 10:29 EDT , Service support , Discharge Plan Triage Chief Complaint: Shortness of Breath Other Complaint: Complaint ED Provider: Oscar Guthrie Dx/Rx/DC Orders Clinical Impression: Acute dyspnea, Hematuria, Hypoxia, COPD exacerbation Prescriptions: No Action metoprolol tartrate 25 MG tablet 25 mg PO BID RF: 0 ferrous sulfate 325 MG tablet 325 mg PO DAILY RF: 0 ergocalciferol (vitamin D2) 50,000 UNIT capsule 50,000 unit PO QMONTH RF: 0 Lactobacillus acidophilus 1 EACH capsule 1 ea PO DAILY RF: 0 prednisone 20 MG tablet 40 mg PO DAILY Qty: 10 RF: 0 levofloxacin 750 MG tablet 750 mg PO DAILY Qty: 3 RF: 0 albuterol sulfate 1 PUFF inhaler 1 - 2 puff inhalation Q4H PRN PRN (Reason: Sob &/Or Wheezing) Qty: 1 RF: 0 amlodipine 10 MG tablet 10 mg PO DAILY Qty: 30 RF: 0 [facility] [Primary Care Provider] - Disposition Disposition: Acute Care Hospital [facility]
[2020-08-26 07:04] LABS: Absolute Lymphocyte Count 0.55 X10^3/uL (0.83-4.51); Absolute Neutrophil Count 7.5 X10^3/uL (2.0-7.7); Basophil# 0.03 X10^3/uL; Basophil% 0.3 % (0-1); Eosinophil# 0.17 X10^3/uL; Eosinophils% 1.9 % (0-5); Hematocrit 29.8 % (40-54); Hemoglobin 9.6 g/dL (13.0-16.5); Lymphocyte # 0.55 X10^3/ul (0.83-4.51); Lymphocyte % 6.2 % (19-41); Mean Corp Hgb Conc 32.2 g/dL (32-36); Mean Corpuscular Hgb 37.8 pg (27.0-32.0); Mean Corpuscular Volume 117.3 fL (80-94); Mean Platelet Vol. 11.7 fl (6.2-12.0); Monocyte# 0.58 X10^3/uL; Monocyte% 6.5 % (0-10); NRBC Flagged by Analyzer 0 % (0-5); Neutrophil # 7.52 X10^3/uL (2.7-7.7); Neutrophil % 84.2 % (47-70); POSITIVE COUNT YES; POSITIVE DIFFERENTIAL YES; POSITIVE MORPHOLOGY YES; Platelet Count 60 K/mm3 (150-450); Red Blood Count 2.54 M/mm3 (4.6-6.2)
[2020-08-26 07:05] LABS: Differential Indicated SCAN CRITERIA MET
[2020-08-26] MEDS: 0.9% Normal Saline 1,000 ML 150 ML IV (07:10)
[2020-08-26] MEDS: Lidocaine Jelly 2% 20 ML Syringe (URO-JET) 20 APPLIC TOPICAL (07:11)
[2020-08-26 07:15] LABS: International Normalized Ratio 2.5; Prothrombin Time (Protime)PT. 26.3 SECONDS (11.7-14.9)
[2020-08-26 07:17] LABS: Partial Thromboplast Time 33.4 Seconds (24.1-36.2)
[2020-08-26 07:27] LABS: ALB/GLOB Ratio 0.4 RATIO (0.9-2.4); AST(SGOT) 86 U/L (15-37); Alanine Aminotransfer ALT/SGPT 42 U/L (16-61); Albumin, Serum 1.9 g/dL (3.2-5.0); Alkaline Phosphatase 104 U/L (45-117); Anion Gap 6 (5-15); BUN 11 mg/dL (7-18); BUN/Creat Ratio 8.1 RATIO (10-20); Calcium,Total 7.9 mg/dL (8.5-10.1); Chloride 114 mmol/L (98-107); Creatinine, Serum 1.36 mg/dL (0.70-1.30); EST Glomerular Filtration Rate 55 mL/min (>60); Est Glom Filt Rate - Afr Amer 66 mL/min (>60); Estimated Creatinine Clearance 54.68 ml/min; Globulin 5.4 g/dL (2.2-4.2); Glucose 98 mg/dL (74-106); Potassium 4.7 mmol/L (3.5-5.1); Protein, Total 7.3 g/dL (6.4-8.2); Sodium Level 140 mmol/L (136-145); Troponin-I HS 94.1 pg/mL (3.0-78.5)
[2020-08-26 07:31] LABS: Platelet Estimate MKD DEC (ADEQ)
[2020-08-26 07:34] LABS: White Blood Count 8.9 K/mm3 (4.4-11.0)
--- NOTE | 2020-08-26 09:04 | CT_ITS ---
STUDY: CTA CHEST REASON FOR EXAM: Male, 69 years old. shortness of breath RADIATION DOSAGE (If Supplied By Facility): CTDIvol = ( 13.59 ) mGy, DLP = ( 481.05 ) mGycm TECHNIQUE: The examination was performed with the intravenous administration of IV 100mL Isovue-370. Post-processing of the angiographic images was performed, with multiplanar reformation and 3D reconstruction. Individualized dose optimization techniques were used for this CT. COMPARISON: None. FINDINGS: Normal enhancement of the main pulmonary artery and right and left pulmonary arteries. Normal enhancement of the bilateral peripheral pulmonary arteries. There is no demonstrated pulmonary embolism. Normal thoracic aorta and visualized great vessels. There is no demonstrated aortic dissection. There is cardiomegaly. Normal mediastinum. Normal hilar regions. Normal visualized trachea and bronchi. The lungs are well expanded. Multilobar peripheral dominant subpleural intralobular fibrotic densities. Normal pleura. Normal chest wall structures. There are degenerative changes of thoracic spine. Small, nodular liver, mild splenomegaly and upper abdominal ascites suggesting cirrhosis. No stone. Bilateral gynecomastia. Body wall edema. CT/CTA Chest W/WO Contrast IMPRESSION: 1. No central or segmental pulmonary embolism. 2. Cirrhosis. Upper abdominal ascites. Mild splenomegaly. 3. Gynecomastia. 4. Body wall edema. 5. Pulmonary fibrotic densities. Electronically Signed: Leo Benito MD ([place]) at 10:29 EDT , Service support ,
--- NOTE | 2020-08-26 11:13 | NURSING ---
CALLED [facility], TALKED TO SAMINA. GAVE HER INFO AND SHE ASKED IF PATIENT WAS OBS OR FULL ADMIT. AT THIS TIME WE DON'T HAVE AN ORDER.
--- NOTE | 2020-08-26 11:15 | NURSING ---
DR ANKIT LEDESMA
--- NOTE | 2020-08-26 11:30 | NURSING ---
DR PHAM IN ER
[2020-08-26] MEDS: Ipratropium/Albuterol Sulfate 3 ML AMPUL.NEB INHALATION ×3 (11:32→22:35)
[2020-08-26] MEDS: Ceftriaxone 1 GM/50 ML BAG IV (11:51)
--- NOTE | 2020-08-26 11:56 | NURSING ---
PCU ANKIT HYPOXIA, HEMATURIA
--- NOTE | 2020-08-26 11:59 | NURSING ---
CALLED [facility]. TALKED TO LIVIER. NEED TO FAX CHART TO THEM, . A LEAD SOFTWARE DEVELOPER WILL BE ASSIGNED TO HIM
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
--- NOTE | 2020-08-26 12:33 | ED.RN ---
LEFT MESSAGE AT [facility] TO DETERMINE IF THEY HAVE BEDS
--- NOTE | 2020-08-26 13:21 | NURSING ---
FAXED CHART TO [facility]
[2020-08-26] MEDS: Furosemide 40 MG/4 ML Vial IV ×2 (13:29→17:43)
--- NOTE | 2020-08-26 16:21 | ECHOCS_ITS ---
Reason For Study: DYSPNEA/SOB Procedure This was a 2D Doppler, Color Flow transthoracic echocardiogram. The study was technically difficult. Exam performed portable in ICU/CCU. Left Ventricle Normal left ventricle. The estimated ejection fraction is EF 55-60 %. Right Ventricle Normal right ventricle. Normal systolic function. Atria Normal left atrium. Normal right atrium. Mitral Valve The mitral valve is structurally normal. No prolapse or stenosis seen. Trivial mitral valve insufficiency. Tricuspid Valve Normal tricuspid valve. Trivial tricuspid valve insufficiency. Aortic Valve Normal aortic valve. Pulmonic Valve The pulmonic valve is not well visualized. Great Vessels Normal aortic root. Pericardium/Pleural No pericardial effusion. Medication Diluted definity 3ml given slow IV push to enhance endocardial definition. MMode/2D Measurements & Calculations LVIDd: 5.5 cm IVSd: 1.0 cm Ao root diam: 3.7 cm LVIDs: 3.9 cm LVPWd: 1.0 cm RVDd: 3.8 cm FS: 29.9 % LAV(MOD-bp): 75.2 ml LVAd ap4: 46.2 cm2 SV(MOD-sp4): 106.0 ml LAV(MOD-bp) Indexed: 32.8 ml/m2 LVLd ap4: 9.2 cm LAV(MOD-sp2): 76.9 ml EDV(MOD-sp4): 188.0 ml LAV(MOD-sp4): 70.0 ml EDV(sp4-el): 196.1 ml LVAs ap4: 27.5 cm2 LVLs ap4: 7.5 cm ESV(MOD-sp4): 82.1 ml ESV(sp4-el): 85.1 ml EF(MOD-sp4): 56.4 % EF(sp4-el): 56.6 % SV(sp4-el): 111.0 ml LA A4 area: 23.6 cm2 LA dimension(2D): 3.8 cm RA A4 area: 20.4 cm2 Time Measurements MV dec time: 0.19 sec Doppler Measurements & Calculations MV E max brando: 102.0 cm/sec Lat Peak E' Brando: 12.5 cm/sec Med Peak E' Brando: 12.7 cm/sec MV A max brando: 107.2 cm/sec E/E' lat: 8.2 E/E' med: 8.0 MV E/A: 0.95 Ao V2 max: 177.7 cm/sec LV V1 max: 135.9 cm/sec PA V2 max: 123.0 cm/sec Ao max P.6 mmHg LV V1 max P.4 mmHg TR max brando: 266.4 cm/sec TR max P.4 mmHg ECHO/Echo Complete W/ Contrast Interpretation Summary The estimated ejection fraction is EF 55-60 %. Trivial TR/Not sufficent to calculate RVSP No significantchange from prior echo in 12/26/2018 Ordering Physician: Kevin Cook Referring Physician: [facility] Performed By: Eliza Triplett RDCS
[2020-08-26] MEDS: 0.9% Saline Lock 10 ML Syringe IV (17:43)
[2020-08-26] MEDS: Pantoprazole Sodium 40 MG Tablet PO (17:43)
[2020-08-26 17:56] LABS: Troponin-I HS 687.5 pg/mL (3.0-78.5)
--- NOTE | 2020-08-26 18:25 | EKG12_ITS ---
Test Reason : ELEVATED TROPONIN Blood Pressure : / mmHG Vent. Rate : 103 BPM Atrial Rate : 101 BPM P-R Int : 000 ms QRS Dur : 074 ms QT Int : 370 ms P-R-T Axes : 000 016 043 degrees QTc Int : 484 ms Accelerated Junctional rhythm Abnormal ECG When compared with ECG of 26-AUG-2020 06:53, MANUAL COMPARISON REQUIRED, DATA IS UNCONFIRMED Confirmed by ASHOK AHN, MOON ([id number]), magazine editor ELO PINK ([id number]) on 08/31/2020 9:56:07 AM Referred By: ANKIT Confirmed By:MOON PULIDO MD
[2020-08-26] MEDS: Acetaminophen 325 MG Tablet 650 MG PO (18:30)
[2020-08-26 18:45] LABS: Hematocrit 29.3 % (40-54); Hemoglobin 9.5 g/dL (13.0-16.5)
[2020-08-26 19:37] LABS: Troponin-I HS 677.7 pg/mL (3.0-78.5)
[2020-08-26 19:39] LABS: Lactic Acid 3.5 mmol/L (0.4-1.9)
--- NOTE | 2020-08-26 20:32 | NURSING ---
PT REQUESTING WATER AND JUICE TO DRINK. EDUCATED RE: CHF AND DRINKING FLUIDS. REMINDED OF HIS FLUID RESTRICTION. PT NOT AGREEABLE TO MAINTAINING HIS FLUID RESTRICTION. WATER PROVIDED AT HIS REQUEST.
[2020-08-26 21:14] LABS: BNP,B-Type NATRIURETIC PEPTIDE 476.2 pg/mL (0-100)
--- NOTE | 2020-08-26 21:42 | PCM.CONS.C ---
Assessment & Plan Assessment/Plan (1) Congestive heart failure (CHF): (2) Severe sepsis: (3) Elevated troponin: PLAN: 69-year-old patient with history of alcoholic liver cirrhosis presented with shortness of breath no active symptoms of chest pain Patient has remarkable lower extremity edema and ascites with abnormal liver function tests and also evidence of hepatorenal syndrome A prior echocardiogram showed EF of 60% with normal RV systolic pressure. Patient has longstanding history of chronic obstructive pulmonary disease with a prior admission with pneumonia and acute exacerbation of COPD. Patient transferred to the intensive care unit due to elevated lactic acid level Clinical impression and plan 1. Alcoholic liver cirrhosis is possible alcoholic cardiomyopathy from the clinical presentation with evidence of congestive heart failure elevated BNP 2. Elevated high sensitive troponin is secondary to type II VT/demand ischemia. 3. We will repeat an echocardiogram and will follow-up clinically with medical therapy. Patient is not a candidate for invasive cardiac evaluation. (4) Acute respiratory failure with hypoxia: (5) COPD exacerbation: HPI Consult Data Date of Consult: 08/26/20 HPI Narrative Reason for Consultation: Patient with an alcoholic liver cirrhosis, Elevated high sensitive troponin HPI Narrative: AUSTEN MONTIEL, is a 69 M who presents [facility] Medical History Alcohol abuse Congestive heart failure (CHF) COPD (chronic obstructive pulmonary disease) HTN (hypertension) Tobacco use Home Medications metoprolol tartrate 25 mg PO BID 10/05/13 [History Last Taken Unknown] Lactobacillus acidophilus 1 ea PO DAILY 12/26/18 [History Last Taken Unknown] ergocalciferol (vitamin D2) 50,000 unit PO QMONTH 12/26/18 [History Last Taken Unknown] ferrous sulfate 325 mg PO DAILY 12/26/18 [History Last Taken Unknown] albuterol sulfate 1 - 2 puff INHALATION Q4H PRN PRN #1 inhaler 12/28/18 [Rx Last Taken Unknown] amlodipine 10 mg PO DAILY #30 tab 12/28/18 [Rx Last Taken Unknown] levofloxacin 750 mg PO DAILY #3 tab 12/28/18 [Rx Last Taken Unknown] prednisone 40 mg PO DAILY #10 tab 12/28/18 [Rx Last Taken Unknown] Allergy/AdvReac Type Severity Reaction Status Date / Time CATHERINE Inhibitors Allergy Angioedema Verified 12/26/18 05:21 Social History Smoking Status: Former smoker substance use type: does not use Physical Exam Narrative Patient seen and evaluated in the intensive care unit along with the nursing staff He is alert orientated x3 He had marked lower extremity edema and distended abdomen with ascites. 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 Objective Data Vital Signs: Vital Signs Temp Pulse Resp BP Pulse Ox 99.3 F H 98 20 H 101/49 L 95 08/26/20 20:28 08/26/20 20:28 08/26/20 20:28 08/26/20 20:28 08/26/20 20:28 Oxygen Flow Rate (L/min) 4 Oxygen Delivery Method Nasal Cannula Weight: 237 lb 7.005 oz Body Mass Index (BMI) 32.1 Intake & Output: Intake and Output for Last 24 Hours 08/24/20 08/25/20 08/26/20 23:59 23:59 23:59 Intake Total 2571.5 / 2571.5 Output Total 2675 / 2675 Balance -103.5 / -103.5 Lab / Micro Data Result Diagrams: 08/26/20 18:15 08/26/20 06:50 Labs: Laboratory Results - last 24 hr 08/26/20 06:50: WBC 8.9, RBC 2.54 L, Hgb 9.6 L, Hct 29.8 L, MCV 117.3 H, MCH 37.8 H, MCHC 32.2, RDW Std Deviation 69.0 H, RDW Coeff of Katie 16.0 H, Plt Count 60 L, MPV 11.7, Immature Gran % (Auto) 0.900, Neut % (Auto) 84.2 H, Lymph % (Auto) 6.2 L, Logan % (Auto) 6.5, Eos % (Auto) 1.9, Baso % (Auto) 0.3, Absolute Neuts (auto) 7.5, Absolute Lymphs (auto) 0.55 L, Nucleated RBC % 0, Platelet Estimate MKD 08/26/20 06:50: PT 26.3 H, INR 2.5, APTT 33.4 08/26/20 06:50: Sodium 140, Potassium 4.7, Chloride 114 H, Carbon Dioxide 20.0 L, Anion Gap 6, BUN 11, Creatinine 1.36 H, Estim Creat Clear Calc 54.68, Est GFR (MDRD) Af Amer 66, Est GFR (MDRD) Non-Af 55 L, BUN/Creatinine Ratio 8.1 L, Glucose 98, Calcium 7.9 L, Total Bilirubin 4.00 H, AST 86 H, ALT 42, Alkaline Phosphatase 104, Troponin I High Sens 94.1 H*, Total Protein 7.3, Albumin 1.9 L, Globulin 5.4 H, Albumin/Globulin Ratio 0.4 L 08/26/20 06:50: B-Natriuretic Peptide 476.2 H 08/26/20 16:40: Troponin I High Sens 687.5 H*, Folate 2.30 L 08/26/20 18:15: Hgb 9.5 L, Hct 29.3 L 08/26/20 18:15: Troponin I High Sens 677.7 H* 08/26/20 18:30: Lactic Acid 3.5 H* Micro: Microbiology 08/26/20 06:50 Blood Culture (Wb) - Right Hand Blood Culture - Preliminary 08/26/20 07:00 Blood Culture (Wb) - Left Hand Blood Culture - Preliminary 08/26/20 13:30 Mucosa - Nasopharyngeal Respiratory Panel (PCR) - Final 08/26/20 13:13 Urine Catheter - Catheter Streptococcus pneumoniae Antigen (M - Final 08/26/20 13:13 Urine Catheter - Willingham Legionella Antigen - Final 08/26/20 06:55 Mucosa - Nose SARS-CoV-2 Antigen (Rapid) - Final Cardiology Labs/Tests 08/26/20 06:50: WBC 8.9, RBC 2.54 L, Hgb 9.6 L, Hct 29.8 L, MCV 117.3 H, MCH 37.8 H, MCHC 32.2, Plt Count 60 L, MPV 11.7, Immature Gran % (Auto) 0.900, Neut % (Auto) 84.2 H, Lymph % (Auto) 6.2 L, Logan % (Auto) 6.5, Eos % (Auto) 1.9, Baso % (Auto) 0.3, Absolute Neuts (auto) 7.5, Nucleated RBC % 0 08/26/20 06:50: PT 26.3 H, INR 2.5, APTT 33.4 08/26/20 06:50: Sodium 140, Potassium 4.7, Chloride 114 H, Carbon Dioxide 20.0 L, Anion Gap 6, BUN 11, Creatinine 1.36 H, Est GFR (MDRD) Af Amer 66, Est GFR (MDRD) Non-Af 55 L, BUN/Creatinine Ratio 8.1 L, Glucose 98, Calcium 7.9 L, Total Bilirubin 4.00 H 08/26/20 06:50: B-Natriuretic Peptide 476.2 H 08/26/20 18:15: Hgb 9.5 L, Hct 29.3 L 08/26/20 18:30: Lactic Acid 3.5 H* Rhythm: Normal sinus rhythm in the intensive care unit Radiography Diagnostic Testing: Radiology Impression Chest X-Ray 08/26/20 06:34 IMPRESSION: Mild pulmonary vascular congestion. Electronically Signed: Presley Jeronimo MD at 8:17 EDT Tel , Service support , Chest CTA 08/26/20 09:04 IMPRESSION: 1. No central or segmental pulmonary embolism. 2. Cirrhosis. Upper abdominal ascites. Mild splenomegaly. 3. Gynecomastia. 4. Body wall edema. 5. Pulmonary fibrotic densities. Electronically Signed: Leo Benito MD (Brooks) at 10:29 EDT , Service support ,
[2020-08-26] MEDS: Atorvastatin Calcium 40 MG Tablet PO (22:15)
[2020-08-26] MEDS: guaiFENesin 1,200 MG Tablet 1200 MG PO (22:15)
[2020-08-26 22:37] LABS: Reflex Lactate? Y
[2020-08-26 23:20] LABS: Troponin-I HS 624.6 pg/mL (3.0-78.5)
[2020-08-26 23:36] LABS: Allen Test Positive; Base Excess -6 mmol/L (-2 to +2); Bicarbonate 18.3 mmol/L (22-26); Blood Gas Specimen Type ART; O2 Delivery Device Cannula; PO2 72 mmHG (75-100); SITE L Radial; SO2 96 % (95-99); Total Carbon Dioxide 19 mmol/L; pCO2 25.8 mmHg (35-45); pH 7.46 (7.35-7.45)
[2020-08-27] VITALS (58 sets, daily range): BP systolic 69–134; BP diastolic 48–82; PULSE 74–107; RESP 10–23; TEMP 36.1–37.1; O2SAT 91–100
[2020-08-27 04:20] LABS: Absolute Lymphocyte Count 0.48 X10^3/uL (0.83-4.51); Absolute Neutrophil Count 7.5 X10^3/uL (2.0-7.7); Basophil# 0.01 X10^3/uL; Basophil% 0.1 % (0-1); Hematocrit 24.7 % (40-54); Hemoglobin 8.1 g/dL (13.0-16.5); Lymphocyte # 0.48 X10^3/ul (0.83-4.51); Lymphocyte % 5.9 % (19-41); Mean Corp Hgb Conc 32.8 g/dL (32-36); Mean Corpuscular Hgb 37.3 pg (27.0-32.0); Mean Corpuscular Volume 113.8 fL (80-94); Mean Platelet Vol. 11.8 fl (6.2-12.0); Monocyte# 0.14 X10^3/uL; Monocyte% 1.7 % (0-10); NRBC Flagged by Analyzer 0 % (0-5); Neutrophil # 7.46 X10^3/uL (2.7-7.7); Neutrophil % 91.7 % (47-70); POSITIVE COUNT YES; POSITIVE DIFFERENTIAL YES; POSITIVE MORPHOLOGY YES; Platelet Count 58 K/mm3 (150-450); RBC Distribution Width CV 15.9 % (11.6-14.6); Red Blood Count 2.17 M/mm3 (4.6-6.2); White Blood Count 8.1 K/mm3 (4.4-11.0)
[2020-08-27 04:23] LABS: Differential Indicated SCAN CRITERIA MET
[2020-08-27 04:44] LABS: Anion Gap 8 (5-15); BUN 15 mg/dL (7-18); BUN/Creat Ratio 10.5 RATIO (10-20); Calcium,Total 7.2 mg/dL (8.5-10.1); Chloride 112 mmol/L (98-107); Cholesterol < 50 mg/dL (200); Creatinine, Serum 1.43 mg/dL (0.70-1.30); EST Glomerular Filtration Rate 52 mL/min (>60); Est Glom Filt Rate - Afr Amer 63 mL/min (>60); Glucose 130 mg/dL (74-106); High Density Lipoprotein 16 mg/dL; Magnesium 1.6 mg/dL (1.6-2.6); Potassium 3.8 mmol/L (3.5-5.1); Sodium Level 140 mmol/L (136-145); Triglycerides 27 mg/dL; Very Low Density Lipoprotein 5 mg/dL (5-40)
[2020-08-27 04:45] LABS: Differential Comment SCANNED
[2020-08-27 04:46] LABS: Anisocytosis 2+; Macrocytosis 2+
[2020-08-27] MEDS: Ipratropium/Albuterol Sulfate 3 ML AMPUL.NEB INHALATION ×3 (06:45→18:47)
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
[2020-08-27 08:44] LABS: Vitamin B12 1322 pg/mL (211-911)
--- NOTE | 2020-08-27 10:08 | EX.PCM.CONCC ---
Assessment & Plan Assessment/Plan (1) Severe sepsis: (2) Acute dyspnea: (3) Congestive heart failure (CHF): (4) Hypoxia: (5) Cirrhosis of liver: (6) Coagulopathy: PLAN: RECOMMENDATIONS: 1. Continue with empiric antibiotics 2. Wean pressors as tolerated 3. Reversal of coagulopathy 4. Place central line 5. Consult dietitian for severe malnutrition 6. Wean oxygen as tolerated IMPRESSIONS: 1. Septic shock secondary to probable UTI Patient appears to have gram-negative growing in his blood. This accounts for decompensation following antibiotics. We will continue with broad-spectrum antibiotics for now. Wean levo as tolerated. Continue to monitor in the intensive care unit. 2. Acute cor pulmonale secondary to poor compliance with supplemental oxygen/COPD Patient does carry a diagnosis of COPD, but does not appear to be in acute exacerbation at this time. Low clinical suspicion for pulmonary source of septic shock. Failure to comply with supplemental oxygen will lead to elevated pulmonary artery pressures and exacerbate ascites and lower extremity edema. Wean oxygen as tolerated. Patient may be a candidate for nocturnal ventilation, but this will not be as effective as compliance with supplemental oxygen. 3. Decompensated alcoholic cirrhosis with ascites Patient with significant ascites noted on imaging. Patient also has cirrhotic changes. Clinical suspicion this is related to previous alcoholism. Patient does have thrombocytopenia and macrocytic anemia. Would hold on an acute hepatitis panel as this is likely done previously as an outpatient at the [facility]. Would obtain old records initially. 4. Hematuria Unclear etiology. Differential diagnosis would include: Nephrotic/nephritic syndrome, acute UTI, cancer and trauma. We will continue to follow blood counts on a daily basis. Transfusion as indicated. 5. History of alcohol and tobacco abuse/hypertension/short-bowel secondary to trauma Complicates care, management, recovery and prognosis. Hold antihypertensives given problem #1. Dietitian to evaluate. TIME: 35 minutes critical care time spent addressing patient's septic shock, acute cor pulmonale, cirrhosis, hematuria, review of all data and collaboration with care team (5:30 AM to 6:30 AM) HPI Consult Data Date of Consult: 08/27/20 HPI Narrative HPI Narrative: AUSTEN MONTIEL is a 69 M, with past medical history listed below, who presents to [facility] on 08/26/2020 secondary to dyspnea and hematuria. Patient reportedly has a history of excessive tobacco and alcohol, but quit 4 months ago. Patient reportedly is supposed to use supplemental oxygen, but is noncompliant. Patient states that overnight prior to presentation he had acute onset of shortness of breath and hematuria. Patient denied any blood thinners or trauma. Patient did not have any significant cough, but has noted that his lower extremities have been swelling over the previous 2 to 3 weeks. Patient does not have any history of malignancy, DVT or PE that he is aware of. In the ER, patient was noted to have a temperature of 99.7 ?F and was hypoxic at 88% on 4 L. Patient was normotensive at 162/75 initially. Patient was noted to desaturate into the 70s with ambulation and was placed on supplemental oxygen. Laboratory work-up showed an anemia of 9.6, white blood cell count of 8.9 and INR of 2.5. Patient had an elevated creatinine of 1.36 with a BUN of 11. Bilirubin was elevated at 4 and high-sensitivity troponin was elevated at 94. Patient was noted to have an albumin of 1.9. Chest x-ray showed mild pulmonary vascular congestion and a CTA of the chest showed no PE, but cirrhosis with ascites and fibrotic changes at the bases. There was some concern for possible pneumonia, so patient was given antibiotics and steroids. Since being in the intensive care unit, patient became progressively hypotensive requiring initiation of Levophed through a peripheral line. Patient states he feels subjectively much improved from presentation. Patient states he is typically followed at the [facility] and quit smoking and drinking 4 months ago when he was told that his liver was scalloped. Patient readily admits that he is not compliant with supplemental oxygen. Patient is not reporting any history of hematuria previously. Patient has not had any recent instrumentation such as self-catheterization. Patient is not reporting any flank pain. Laboratory has called and patient is already noted to have gram-negative rods in all blood cultures. Patient appears to have poor insight into his overall condition, but review of systems otherwise negative from a constitutional, HEENT, respiratory, cardiovascular, GI, genitourinary, musculoskeletal, skin, neurologic, psychiatric and hematologic system unless stated above. FOR[facility]LY [facility] Medical History Alcohol abuse Congestive heart failure (CHF) COPD (chronic obstructive pulmonary disease) HTN (hypertension) Tobacco use Home Medications metoprolol tartrate 25 mg PO BID 10/05/13 [History Last Taken Unknown] Lactobacillus acidophilus 1 ea PO DAILY 12/26/18 [History Last Taken Unknown] ergocalciferol (vitamin D2) 50,000 unit PO QMONTH 12/26/18 [History Last Taken Unknown] ferrous sulfate 325 mg PO DAILY 12/26/18 [History Last Taken Unknown] albuterol sulfate 1 - 2 puff INHALATION Q4H PRN PRN #1 inhaler 12/28/18 [Rx Last Taken Unknown] amlodipine 10 mg PO DAILY #30 tab 12/28/18 [Rx Last Taken Unknown] levofloxacin 750 mg PO DAILY #3 tab 12/28/18 [Rx Last Taken Unknown] prednisone 40 mg PO DAILY #10 tab 12/28/18 [Rx Last Taken Unknown] Allergy/AdvReac Type Severity Reaction Status Date / Time CATHERINE Inhibitors Allergy Angioedema Verified 12/26/18 05:21 Social History Smoking Status: Former smoker substance use type: does not use ROS ROS Narrative See HPI Physical Exam Const alert, oriented x3 and no apparent distress Constitutional Narrative: 3+ anasarca General Appearance: cooperative, well developed and appears older than stated age HEENT normocephalic, head/scalp atraumatic and moist oral mucous membranes Eyes PERRL and EOMs intact bilaterally Neck full ROM and no lymphadenopathy Chest inspection of chest normal Resp no use of accessory muscles Effort and Inspection: able to speak in complete sentences; Negative for respiratory distress Auscultation: rales bilateral base and diminished lung sounds; Negative for rhonchi or wheezes Percussion: Negative for dullness Cardio regular rate, regular rhythm, S1 normal heart sound, S2 normal heart sound, no murmurs, no rub and no gallops GI normal to inspection, nondistended, normoactive bowel sounds no CVA tenderness Narrative: Willingham catheter with concentrated yellow urine. Extremity General Extremity: clubbing and edema; Negative for cyanosis Skin no rashes or lesions noted Neuro oriented x3, CN's II-XII intact bilaterally, moves all extremities and no focal motor deficits Psych cooperative and affect normal Medical Records Data Medical Nutrition Assessment Dietitian: Nutrition Therapy Diagnosis Start: 08/26/20 15:09 Freq: Status: Active Protocol: Document 08/27/20 09:52 JULIETA (Rec: 08/27/20 09:52 [facility] [id number]) Nutrition Malnutrition Evidence of Malnutrition Exists No Clinical Problem Unintended Weight Gain Etiology r/t fluid retention Signs/Symptoms as evidenced by unintentional wt gain of 42.4# x 6 months, BLE/katrina arm 3+ pitting, abdominal non-pitting edema Status Active Problem Recommendation Dietitian Recommendations/Changes Will change to Cardiac diet/ Sodium restricted diet w/ 1500mL fluid restriction. Will provide ensure pudding or magic cup ice cream w/ lunch and dinner for increased pro if consumed. Continue daily weights. Lab / Micro Data Result Diagrams: 08/27/20 04:05 08/27/20 04:05 Labs: Laboratory Results - last 24 hr 08/26/20 06:50: B-Natriuretic Peptide 476.2 H 08/26/20 16:40: Vitamin B12 1322 H 08/26/20 16:40: Troponin I High Sens 687.5 H*, Folate 2.30 L 08/26/20 18:15: Hgb 9.5 L, Hct 29.3 L 08/26/20 18:15: Troponin I High Sens 677.7 H* 08/26/20 18:30: Lactic Acid 3.5 H* 08/26/20 22:20: Troponin I High Sens 624.6 H* 08/26/20 23:00: Lactic Acid 2.0 08/27/20 04:05: WBC 8.1, RBC 2.17 L, Hgb 8.1 L, Hct 24.7 L, MCV 113.8 H, MCH 37.3 H, MCHC 32.8, RDW Std Deviation 67.0 H, RDW Coeff of Katie 15.9 H, Plt Count 58 L, MPV 11.8, Immature Gran % (Auto) 0.600, Neut % (Auto) 91.7 H, Lymph % (Auto) 5.9 L, Kingfisher % (Auto) 1.7, Eos % (Auto) 0.0, Baso % (Auto) 0.1, Absolute Neuts (auto) 7.5, Absolute Lymphs (auto) 0.48 L, Nucleated RBC % 0, Differential Comment SCANNED, Anisocytosis 2+, Macrocytosis 2+ 08/27/20 04:05: Sodium 140, Potassium 3.8, Chloride 112 H, Carbon Dioxide 20.0 L, Anion Gap 8, BUN 15, Creatinine 1.43 H, Estim Creat Clear Calc 52.00, Est GFR (MDRD) Af Amer 63, Est GFR (MDRD) Non-Af 52 L, BUN/Creatinine Ratio 10.5, Glucose 130 H, Calcium 7.2 L, Magnesium 1.6, Triglycerides 27, Cholesterol < 50, LDL Cholesterol TNP, VLDL Cholesterol 5, HDL Cholesterol 16 L 08/27/20 04:05: Folate 3.00 L Micro: Microbiology 08/26/20 06:50 Blood Culture (Wb) - Right Hand Blood Culture - Preliminary Gram negative michael 08/26/20 07:00 Blood Culture (Wb) - Left Hand Blood Culture - Preliminary GNR lactose warehouse selector 08/26/20 13:30 Mucosa - Nasopharyngeal Respiratory Panel (PCR) - Final 08/26/20 13:13 Urine Catheter - Catheter Streptococcus pneumoniae Antigen (M - Final 08/26/20 13:13 Urine Catheter - Willingham Legionella Antigen - Final 08/26/20 06:55 Mucosa - Nose SARS-CoV-2 Antigen (Rapid) - Final ABG Data ABG results: ABG 08/26/20 23:28 Specimen Type ART Sample Site L Radial pH 7.46 H Bicarbonate Actual 18.3 L Total CO2 19 Base Excess -6 L O2 Saturation 96 ABG pCO2 25.8 L ABG pO2 72 L Xavier Test Positive O2 Delivery Device Cannula Liter Flow 5.0 Radiology Impression Chest CTA 08/26/20 09:04 IMPRESSION: 1. No central or segmental pulmonary embolism. 2. Cirrhosis. Upper abdominal ascites. Mild splenomegaly. 3. Gynecomastia. 4. Body wall edema. 5. Pulmonary fibrotic densities. Electronically Signed: Leo Benito MD (Brooks) at 10:29 EDT , Service support , Charges/Coding Procedures Hospitalists Procedures: 10059 Critial Care 1st Hr
--- NOTE | 2020-08-27 10:31 | RAD_ITS ---
STUDY: X-RAY CHEST REASON FOR EXAM: Male, 69 years old. Central line placement TECHNIQUE: Single AP portable view of the chest. COMPARISON: Comparison with prior study dated 08/26/2000. FINDINGS: A right-sided central venous catheter has been placed. The tip is at the junction of the superior vena cava and right atrium. EKG electrodes are seen. Hyperinflation. Persistent mild degree of increased interstitial markings although there has been improvement as compared prior study. Mild blunting of the right costophrenic angle. Normal size heart. Normal mediastinum and redd. Normal visualized pulmonary arteries. Normal visualized aortic arch and descending thoracic aorta. Normal visualized thoracic spine. There is degenerative osteoarthritis of the bilateral shoulders. There is no demonstrated abnormality of the visualized soft tissue structures of the upper abdomen. RAD/CXR for Line Placement IMPRESSION: The tip of the right central catheter is at the junction of the superior vena cava and right atrium. Mild residual interstitial changes although there has been improvement as compared to prior study. Electronically Signed: Magnus Garcia MD at 10:59 EDT , Service support ,
--- NOTE | 2020-08-27 10:43 | PCM.OP.BLANK ---
Operative Report Date of Procedure: 08/27/20 Central line placement procedure note Indication: IV access/hemodynamic instability/vasoactive medications Procedure: A time-out was completed to verify correct patient, indication, medication allergies, procedure, coagulation studies, informed consent signed, and equipment needed. The patient was placed in the supine position for a central line placement to the rt IJ vein. The patients rt neck was prepped using chlorhexidine and a full body sterile drape was applied. 1% lidocaine was used to anesthetize the surrounding skin. A 7fr 16 cm blue guard triple lumen catheter introduced into the internal jugular femoral vein using the modified Seldinger technique with the assistance of ultrasound. The catheter was threaded smoothly over the guidewire, the guidewire was removed easily, nonpulsatile blood returned. All ports were aspirated of air and flushed with sterile saline. The catheter was sutured in place and covered with an occlusive dressing impregnated with chlorhexidine. Post-procedure: The patient tolerated the procedure well. Vital signs remained stable. EBL 5cc. No complications. Chest X Ray ordered to confirm tip placement and the absence of pneumothorax. Procedures Hospitalists Procedures: 19283 Insert Non-tunnel CV Cath
--- NOTE | 2020-08-27 11:15 | CASEMGMT ---
RN SAWYER Face to Face with patient for initial transition planning/care coordination assessment. RN CM introduced self and role at [facility]. Patient lying in bed, alert and oriented. Patient willing to participate in assessment and is able to answer all questions appropriately. Care providers, pharmacy, and demographics verified. Patient wishes to discharge home, denies need for home health at this time. Patient currently on oxygen and will monitor for home oxygen at discharge pending testing. Patient states he has no further needs or concerns at this time. CM to follow for discharge planning needs that may arise. PCP: Deneen FERMIN at [facility] Specialists: none [facility] [place], [facility] only Prescription Benefit: [place] Living Will/HPOA: none LNOK: denies Living Arrangements: Patient lives alone in a single story home with 3 steps and railing to enter. Patient states he is independent at home. Patient states he either eats out or makes frozen meals. Transportation: self/public DME/HHC: Patient states he has a built in shower seat. Denies further DME in the home. No previous HHC or SNF. Patient states he stopped smoking 15 months ago and has not had a drink in the last month. When he does drink it's just a small swig to taste someone elses drink Disposition Plan: Patient to discharge home with follow-up plans in place. Will monitor for home oxygen. Yumi FISCHER, RN, CM
[2020-08-27] MEDS: guaiFENesin 1,200 MG Tablet 1200 MG PO ×2 (11:16→21:19)
[2020-08-27] MEDS: Pantoprazole Sodium 40 MG Tablet PO (11:16)
[2020-08-27] MEDS: Folic Acid 1 MG Tablet 2 MG PO (11:17)
[2020-08-27 14:22] LABS: Mucous, Urine 0 SEEN /hpf (<or=2+); Squamous Epithelial Cells - UA 0 SEEN /hpf (0-5)
[2020-08-27 14:26] LABS: Color, Urine Yellow (Yellow); Glucose, Dipstick Normal (Normal); Ketone-Dipstick Negative (Negative); Leukocyte Esterase-Dipstick 500 /ul (Negative); Nitrite-Dipstick Negative (Negative); Occult Blood-Urine 250 /ul (Negative); Protein-Dipstick 30 mg/dl (Negative); Urine Bilirubin Dipstick Negative (Negative); Urine Clarity Sl. Cloudy (Clear); Urine Urobilinogen Normal (Normal)
[2020-08-27 14:33] LABS: Bacteria 1+ /hpf (None Seen); Red Blood Cells-Urine 25-50 SEEN /hpf (0-5); White Blood Cells 25-50 SEEN /hpf (0-5)
[2020-08-27] MEDS: TITRATION PARAMETER CHANGE 1 EACH IV (14:48)
[2020-08-27] MEDS: Atorvastatin Calcium 40 MG Tablet PO (21:19)
[2020-08-28] VITALS (28 sets, daily range): BP systolic 96–146; BP diastolic 39–92; PULSE 67–102; RESP 10–96; TEMP 36.3–36.7; O2SAT 91–98
[2020-08-28 06:27] LABS: Absolute Lymphocyte Count 0.54 X10^3/uL (0.83-4.51); Absolute Neutrophil Count 7.8 X10^3/uL (2.0-7.7); Basophil# 0.01 X10^3/uL; Basophil% 0.1 % (0-1); Hematocrit 22.3 % (40-54); Hemoglobin 7.3 g/dL (13.0-16.5); Lymphocyte # 0.54 X10^3/ul (0.83-4.51); Mean Corp Hgb Conc 32.7 g/dL (32-36); Mean Corpuscular Hgb 37.8 pg (27.0-32.0); Mean Corpuscular Volume 115.5 fL (80-94); Mean Platelet Vol. 11.7 fl (6.2-12.0); Monocyte# 0.49 X10^3/uL; Monocyte% 5.5 % (0-10); NRBC Flagged by Analyzer 0 % (0-5); Neutrophil # 7.82 X10^3/uL (2.7-7.7); Neutrophil % 87.4 % (47-70); POSITIVE COUNT YES; POSITIVE DIFFERENTIAL YES; POSITIVE MORPHOLOGY YES; Platelet Count 51 K/mm3 (150-450); RBC Distribution Width CV 16.2 % (11.6-14.6); RBC Distribution Width SD 68.8 fl (35.1-43.9); Red Blood Count 1.93 M/mm3 (4.6-6.2)
--- NOTE | 2020-08-28 06:28 | PN.CC_ITS ---
Assessment & Plan Assessment/Plan (1) Severe sepsis: (2) Acute dyspnea: (3) Congestive heart failure (CHF): (4) Hypoxia: (5) Cirrhosis of liver: (6) Coagulopathy: PLAN: RECOMMENDATIONS: 1. Continue with empiric antibiotics 2. Likely attempted diuresis tomorrow after 24 hours off pressors 3. Await morning labs 4. Increase activity as tolerated 5. Consult dietitian for severe malnutrition 6. Okay to leave the intensive care unit from my perspective IMPRESSIONS: 1. Septic shock secondary to probable UTI versus SBP Patient appears to have Klebsiella pneumonia growing in his blood. This accounts for decompensation following antibiotics. We will continue with broad- spectrum antibiotics for now pending sensitivities. Patient may require a paracentesis once more hemodynamically stable and coagulation corrected. Okay to leave the intensive care unit from my perspective. 2. Acute cor pulmonale secondary to poor compliance with supplemental oxygen/COPD Patient does carry a diagnosis of COPD, but does not appear to be in acute exacerbation at this time. Low clinical suspicion for pulmonary source of septic shock. Failure to comply with supplemental oxygen will lead to elevated pulmonary artery pressures and exacerbate ascites and lower extremity edema. Wean oxygen as tolerated. Patient may be a candidate for nocturnal ventilation, but this will not be as effective as compliance with supplemental oxygen. 3. Decompensated alcoholic cirrhosis with ascites Patient with significant ascites noted on imaging. Patient also has cirrhotic changes. Clinical suspicion this is related to previous alcoholism. Patient does have thrombocytopenia and macrocytic anemia. Patient will likely require paracentesis at some point 4. Hematuria Unclear etiology. Differential diagnosis would include: Nephrotic/nephritic syndrome, acute UTI, cancer and trauma. We will continue to follow blood counts on a daily basis. Transfusion as indicated. 5. History of alcohol and tobacco abuse/hypertension/short-bowel secondary to trauma Complicates care, management, recovery and prognosis. Hold antihypertensives given problem #1. Dietitian to evaluate. Subjective Subjective Patient did well overnight. No acute issues were reported. Patient was able to be taken off of Levophed at approximately 6 PM. Patient did have a dark stool that was guaiac positive, but has remained on 3 L nasal cannula with stable bl ood pressure. Patient denies any abdominal pain and feels his arm swelling is significantly improved compared to previous. Objective Data Objective Data Vital Signs: Vital Signs Temp Pulse Resp BP Pulse Ox 36.6 C 87 10 L 109/61 95 07/24/21 04:00 08/28/20 04:00 08/28/20 04:00 08/28/20 04:00 08/28/20 04:00 Oxygen Flow Rate (L/min) 3 Oxygen Delivery Method Nasal Cannula Weight: 112.9 kg Body Mass Index (BMI) 32.1 Intake & Output: Intake and Output for Last 24 Hours 08/26/20 08/27/20 08/28/20 23:59 23:59 23:59 Intake Total 2571.5 / 2671.5 1590.11 / 1740.11 300 / 300 Output Total 2675 / 3425 1175 / 1400 525 / 525 Balance -103.5 / -753.5 415.11 / 340.11 -225 / -225 Medical Nutrition Assessment Dietitian: Nutrition Therapy Diagnosis Start: 08/26/20 15:09 Freq: Status: Active Protocol: Document 08/27/20 09:52 [facility] (Rec: 08/27/20 09:52 [facility] [id number]) Nutrition Malnutrition Evidence of Malnutrition Exists No Clinical Problem Unintended Weight Gain Etiology r/t fluid retention Signs/Symptoms as evidenced by unintentional wt gain of 42.4# x 6 months, BLE/katrina arm 3+ pitting, abdominal non-pitting edema Status Active Problem Recommendation Dietitian Recommendations/Changes Will change to Cardiac diet/ Sodium restricted diet w/ 1500mL fluid restriction. Will provide ensure pudding or magic cup ice cream w/ lunch and dinner for increased pro if consumed. Continue daily weights. Lab / Micro Data Result Diagrams: 08/27/20 04:05 08/27/20 04:05 Labs: Laboratory Results - last 24 hr 08/26/20 16:40: Vitamin B12 1322 H 08/27/20 04:05: Folate 3.00 L 08/27/20 09:05: Blood Type O POSITIVE 08/27/20 14:15: Urine Color Yellow, Urine Clarity Sl. Cloudy, Urine pH 6.0, Ur Specific [place]on 1.020, Urine Protein 30 H, Urine Glucose (UA) Normal, Urine Ketones Negative, Urine Occult Blood 250 H, Urine Nitrite Negative, Urine Bilirubin Negative, Urine Urobilinogen Normal, Ur Leukocyte Esterase 500 H, Urine RBC 25-50 SEEN, Urine WBC 25-50 SEEN, Ur Squamous Epith Cells 0 SEEN, Urine Bacteria 1+, Urine Mucus 0 SEEN Micro: Microbiology 08/26/20 07:00 Blood Culture (Wb) - Left Hand Blood Culture - Final GNR lactose boom supervisor 08/26/20 06:50 Blood Culture (Wb) - Right Hand Blood Culture - Final Klebsiella pneumoniae sp pneum 08/27/20 15:45 Stool Stool Occult Blood (TIO) - Final Occult Blood Positive 08/26/20 13:30 Mucosa - Nasopharyngeal Respiratory Panel (PCR) - Final 08/26/20 13:13 Urine Catheter - Catheter Streptococcus pneumoniae Antigen (M - Final 08/26/20 13:13 Urine Catheter - Willingham Legionella Antigen - Final 08/26/20 06:55 Mucosa - Nose SARS-CoV-2 Antigen (Rapid) - Final Radiography Diagnostic Testing: Radiology Impression Echocardiogram 08/26/20 16:21 Interpretation Summary The estimated ejection fraction is EF 55-60 %. Trivial TR/Not sufficent to calculate RVSP No significantchange from prior echo in 12/26/2018 Ordering Physician: Kevin Cook Referring Physician: [facility] Performed By: Eliza Triplett RDCS Chest X-Ray 08/27/20 10:31 IMPRESSION: The tip of the right central catheter is at the junction of the superior vena cava and right atrium. Mild residual interstitial changes although there has been improvement as compared to prior study. Electronically Signed: Magnus Garcia MD at 10:59 EDT , Service support , Physical Exam Const alert, oriented x3 and no apparent distress Constitutional Narrative: 2+ anasarca General Appearance: cooperative, well developed and appears older than stated age HEENT normocephalic, head/scalp atraumatic and moist oral mucous membranes Eyes PERRL and EOMs intact bilaterally Neck full ROM and no lymphadenopathy Chest inspection of chest normal Resp no use of accessory muscles Effort and Inspection: able to speak in complete sentences; Negative for respiratory distress Auscultation: rales bilateral base and diminished lung sounds; Negative for rhonchi or wheezes Percussion: Negative for dullness Cardio regular rate, regular rhythm, S1 normal heart sound, S2 normal heart sound, no murmurs, no rub and no gallops GI normal to inspection, nondistended, normoactive bowel sounds no CVA tenderness Narrative: Willingham catheter with pale yellow urine. Extremity General Extremity: clubbing and edema; Negative for cyanosis Skin no rashes or lesions noted Neuro oriented x3, CN's II-XII intact bilaterally, moves all extremities and no focal motor deficits Psych cooperative and affect normal Charges/Coding Visit Charges Inpatient E&M: 31231 Subs Hosp L3
[2020-08-28 06:39] LABS: Differential Indicated SCAN CRITERIA MET
[2020-08-28 06:45] LABS: International Normalized Ratio 2.3; Prothrombin Time (Protime)PT. 24.2 SECONDS (11.7-14.9)
[2020-08-28 06:51] LABS: Anisocytosis 2+; Differential Comment SCANNED; Macrocytosis 2+; Platelet Estimate MKD DEC (ADEQ)
[2020-08-28 07:03] LABS: Anion Gap 6 (5-15); BUN 21 mg/dL (7-18); BUN/Creat Ratio 13.5 RATIO (10-20); Calcium,Total 7.4 mg/dL (8.5-10.1); Chloride 114 mmol/L (98-107); Creatinine, Serum 1.55 mg/dL (0.70-1.30); EST Glomerular Filtration Rate 47 mL/min (>60); Est Glom Filt Rate - Afr Amer 57 mL/min (>60); Estimated Creatinine Clearance 47.98 ml/min; Glucose 136 mg/dL (74-106); Potassium 3.7 mmol/L (3.5-5.1); Sodium Level 141 mmol/L (136-145)
[2020-08-28] MEDS: Ipratropium/Albuterol Sulfate 3 ML AMPUL.NEB INHALATION ×3 (07:16→18:58)
[2020-08-28] MEDS: guaiFENesin 1,200 MG Tablet 1200 MG PO ×2 (08:16→21:10)
[2020-08-28] MEDS: Folic Acid 1 MG Tablet 2 MG PO (08:17)
[2020-08-28] MEDS: Pantoprazole Sodium 40 MG Tablet PO (08:17)
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
--- NOTE | 2020-08-28 16:52 | PCM.CONS.R ---
Assessment & Plan Assessment/Plan (1) JOSE (acute kidney injury): PLAN: baseline creatinine was normal in the past. now admitted with cr 1.3 today upto 1.5. UA is benign Witt in with clear yellow urine received CT contrast for CTPE on admission but cr was already high BP low in setting of septic shock, today he is off pressors likely ATN in setting of above events. no indications for NANNY/HOUSEHOLD MANAGER. hold HRS treatment for now HPI Consult Data Date of Consult: 08/28/20 HPI Narrative HPI Narrative: AUSTEN MONTIEL, is a 69 M who presents to the hospital with dyspnea. renal consulted for JOSE. patient usually goes to [place] for his care. came in with above complaints. found to have cirrhosis, abdomen ascitis, anasarca, sepsis, lactic acidosis, UTI. baseline cr was normal before. now upto 1.5. developed hematuria in setting of thrombocytopenia earlier, urine is clear now. currently does not offer any complaints. PFSH Medical History Alcohol abuse Congestive heart failure (CHF) COPD (chronic obstructive pulmonary disease) HTN (hypertension) Tobacco use Home Medications metoprolol tartrate 25 mg PO BID 10/05/13 [History Last Taken Unknown] Lactobacillus acidophilus 1 ea PO DAILY 12/26/18 [History Last Taken Unknown] ergocalciferol (vitamin D2) 50,000 unit PO QMONTH 12/26/18 [History Last Taken Unknown] ferrous sulfate 325 mg PO DAILY 12/26/18 [History Last Taken Unknown] albuterol sulfate 1 - 2 puff INHALATION Q4H PRN PRN #1 inhaler 12/28/18 [Rx Last Taken Unknown] amlodipine 10 mg PO DAILY #30 tab 12/28/18 [Rx Last Taken Unknown] levofloxacin 750 mg PO DAILY #3 tab 12/28/18 [Rx Last Taken Unknown] prednisone 40 mg PO DAILY #10 tab 12/28/18 [Rx Last Taken Unknown] Allergy/AdvReac Type Severity Reaction Status Date / Time CATHERINE Inhibitors Allergy Angioedema Verified 12/26/18 05:21 Social History Smoking Status: Former smoker substance use type: does not use ROS ROS Narrative dysonea, abdomen distention, otherwise negative Physical Exam Narrative Alert awake oriented x 3 no obvious distress no pallor no icterus no JVD s1s2 no murmurs lungs clear abdomen distended no edema no cyanosis witt + Medical Records Data Medical Nutrition Assessment Dietitian: Nutrition Therapy Diagnosis Start: 08/26/20 15:09 Freq: Status: Active Protocol: Document 08/28/20 09:34 BP (Rec: 08/28/20 09:34 BP [id number]) Nutrition Malnutrition Evidence of Malnutrition Exists No Clinical Problem Unintended Weight Gain Etiology r/t fluid retention Signs/Symptoms as evidenced by unintentional wt gain of 42.4# x 6 months, Abdomen 3+ pitting, BLE 3+ pitting, bilateral arm 2+ pitting. Status Active Problem Recommendation Dietitian Recommendations/Changes Continue Cardiac diet/ Sodium restricted diet w/ 1500mL fluid restriction. Continue ensure pudding or magic cup ice cream w/ lunch and dinner for increased pro if consumed. Continue daily weights. Lab / Micro Data Result Diagrams: 08/28/20 06:15 08/28/20 06:15 Labs: Laboratory Results - last 24 hr 08/28/20 06:15: WBC 9.0, RBC 1.93 L, Hgb 7.3 L, Hct 22.3 L, MCV 115.5 H, MCH 37.8 H, MCHC 32.7, RDW Std Deviation 68.8 H, RDW Coeff of Katie 16.2 H, Plt Count 51 L, MPV 11.7, Immature Gran % (Auto) 1.000 H, Neut % (Auto) 87.4 H, Lymph % (Auto) 6.0 L, [place] % (Auto) 5.5, Eos % (Auto) 0.0, Baso % (Auto) 0.1, Absolute Neuts (auto) 7.8 H, Absolute Lymphs (auto) 0.54 L, Nucleated RBC % 0, Differential Comment SCANNED, Platelet Estimate MKD DEC, Anisocytosis 2+, Macrocytosis 2+ 08/28/20 06:15: PT 24.2 H, INR 2.3 08/28/20 06:15: Sodium 141, Potassium 3.7, Chloride 114 H, Carbon Dioxide 21.0, Anion Gap 6, BUN 21 H, Creatinine 1.55 H, Estim Creat Clear Calc 47.98, Est GFR (MDRD) Af Amer 57 L, Est GFR (MDRD) Non-Af 47 L, BUN/Creatinine Ratio 13.5, Glucose 136 H, Calcium 7.4 L Micro: Microbiology 08/27/20 14:15 Urine Catheter - Witt Urine Culture - Preliminary Culture exhibits no growth. 08/26/20 07:00 Blood Culture (Wb) - Left Hand Blood Culture - Final GNR lactose diabetes trainer 08/26/20 06:50 Blood Culture (Wb) - Right Hand Blood Culture - Final Klebsiella pneumoniae sp pneum 08/27/20 15:45 Stool Stool Occult Blood (TIO) - Final Occult Blood Positive
[2020-08-28] MEDS: 0.9% Saline Lock 10 ML Syringe IV (17:38)
[2020-08-28] MEDS: Atorvastatin Calcium 40 MG Tablet PO (21:10)
[2020-08-29] VITALS (21 sets, daily range): BP systolic 99–133; BP diastolic 51–76; PULSE 68–100; RESP 10–18; TEMP 36.1–36.8; O2SAT 90–96
[2020-08-29 04:11] LABS: Absolute Neutrophil Count 7.4 X10^3/uL (2.0-7.7); Hematocrit 22.9 % (40-54); Hemoglobin 7.4 g/dL (13.0-16.5); Lymphocyte % 5.9 % (19-41); Mean Corp Hgb Conc 32.3 g/dL (32-36); Mean Corpuscular Hgb 37.8 pg (27.0-32.0); Mean Corpuscular Volume 116.8 fL (80-94); Mean Platelet Vol. 12.1 fl (6.2-12.0); Monocyte# 0.57 X10^3/uL; Monocyte% 6.7 % (0-10); NRBC Flagged by Analyzer 0 % (0-5); Neutrophil # 7.35 X10^3/uL (2.7-7.7); Neutrophil % 86.1 % (47-70); POSITIVE COUNT YES; POSITIVE DIFFERENTIAL YES; POSITIVE MORPHOLOGY YES; RBC Distribution Width CV 16.1 % (11.6-14.6); RBC Distribution Width SD 67.8 fl (35.1-43.9); Red Blood Count 1.96 M/mm3 (4.6-6.2); White Blood Count 8.5 K/mm3 (4.4-11.0)
[2020-08-29 04:30] LABS: Anion Gap 6 (5-15); BUN 21 mg/dL (7-18); BUN/Creat Ratio 15.6 RATIO (10-20); Calcium,Total 7.3 mg/dL (8.5-10.1); Chloride 115 mmol/L (98-107); Creatinine, Serum 1.35 mg/dL (0.70-1.30); EST Glomerular Filtration Rate 55 mL/min (>60); Est Glom Filt Rate - Afr Amer 67 mL/min (>60); Estimated Creatinine Clearance 55.09 ml/min; Glucose 149 mg/dL (74-106); Potassium 3.5 mmol/L (3.5-5.1); Sodium Level 143 mmol/L (136-145)
[2020-08-29 04:34] LABS: Differential Indicated SCAN CRITERIA MET; Platelet Count 48 K/mm3 (150-450)
[2020-08-29] MEDS: 0.9% Saline Lock 10 ML Syringe IV ×2 (05:30→12:25)
[2020-08-29 05:51] LABS: Anisocytosis 2+; Differential Comment SCANNED; Macrocytosis 2+; Platelet Estimate MKD DEC (ADEQ)
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
[2020-08-29] MEDS: Ipratropium/Albuterol Sulfate 3 ML AMPUL.NEB INHALATION ×3 (06:57→19:00)
[2020-08-29] MEDS: Potassium Chloride Oral Tablet 20 MEQ 40 MEQ PO (09:18)
[2020-08-29] MEDS: Furosemide 40 MG/4 ML Vial IV ×2 (09:18→17:42)
[2020-08-29] MEDS: Pantoprazole Sodium 40 MG Tablet PO (09:22)
[2020-08-29] MEDS: guaiFENesin 1,200 MG Tablet 1200 MG PO ×2 (09:22→21:49)
[2020-08-29] MEDS: Folic Acid 1 MG Tablet 2 MG PO (09:22)
[2020-08-29] MEDS: Ferrous Sulfate 325 MG Tablet PO (12:24)
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
--- NOTE | 2020-08-29 18:34 | PCM.PN.REN ---
Subjective Subjective NO NEW COMPLAINTS Objective Data Objective Data Vital Signs: Vital Signs Temp Pulse Resp BP Pulse Ox 98.3 F 88 16 128/76 H 94 08/29/20 17:46 08/29/20 17:46 08/29/20 17:46 08/29/20 17:46 08/29/20 17:46 Oxygen Flow Rate (L/min) 2 Oxygen Delivery Method Nasal Cannula Weight: 112.6 kg Body Mass Index (BMI) 32.1 Intake & Output: Intake and Output for Last 24 Hours 08/27/20 08/28/20 08/29/20 23:59 23:59 23:59 Intake Total 1590.11 / 1740.11 1280 / 1280 1030 / 1030 Output Total 1175 / 1400 1075 / 1075 4275 / 4275 Balance 415.11 / 340.11 205 / 205 -3245 / -3245 Medical Nutrition Assessment Dietitian: Nutrition Therapy Diagnosis Start: 08/26/20 15:09 Freq: Status: Active Protocol: Document 08/29/20 10:18 BP (Rec: 08/29/20 10:18 BP [id number]) Nutrition Malnutrition Evidence of Malnutrition Exists No Clinical Problem Unintended Weight Gain Etiology r/t fluid retention Signs/Symptoms as evidenced by unintentional wt gain of 42.4# x 6 months, Anasarca/Bilateral arm 3+ pitting, BLE 4+ non-pitting edema. Status Active Problem Recommendation Dietitian Recommendations/Changes Continue Cardiac diet/ Sodium restricted diet w/ 1500mL fluid restriction. Continue ensure pudding or magic cup ice cream w/ lunch and dinner for increased pro if consumed. Continue daily weights. Pt resistant to nutrition education- will provide as warranted by pt prior to discharge. Lab / Micro Data Result Diagrams: 08/29/20 03:55 08/29/20 03:55 Labs: Laboratory Results - last 24 hr 08/29/20 03:55: WBC 8.5, RBC 1.96 L, Hgb 7.4 L, Hct 22.9 L, MCV 116.8 H, MCH 37.8 H, MCHC 32.3, RDW Std Deviation 67.8 H, RDW Coeff of Katie 16.1 H, Plt Count 48 L*, MPV 12.1 H, Immature Gran % (Auto) 1.300 H, Neut % (Auto) 86.1 H, Lymph % (Auto) 5.9 L, Erie % (Auto) 6.7, Eos % (Auto) 0.0, Baso % (Auto) 0.0, Absolute Neuts (auto) 7.4, Absolute Lymphs (auto) 0.50 L, Nucleated RBC % 0, Differential Comment SCANNED, Diff Path Review May foll, Platelet Estimate MKD DEC, Anisocytosis 2+, Macrocytosis 2+ 08/29/20 03:55: Sodium 143, Potassium 3.5, Chloride 115 H, Carbon Dioxide 22.0, Anion Gap 6, BUN 21 H, Creatinine 1.35 H, Estim Creat Clear Calc 55.09, Est GFR (MDRD) Af Amer 67, Est GFR (MDRD) Non-Af 55 L, BUN/Creatinine Ratio 15.6, Glucose 149 H, Calcium 7.3 L Micro: Microbiology 08/27/20 14:15 Urine Catheter - Witt Urine Culture - Final Culture exhibits no growth. 08/26/20 07:00 Blood Culture (Wb) - Left Hand Blood Culture - Final GNR lactose engraver ornamental design 08/26/20 06:50 Blood Culture (Wb) - Right Hand Blood Culture - Final Klebsiella pneumoniae sp pneum 08/27/20 15:45 Stool Stool Occult Blood (TIO) - Final Occult Blood Positive 08/26/20 13:30 Mucosa - Nasopharyngeal Respiratory Panel (PCR) - Final 08/26/20 13:13 Urine Catheter - Catheter Streptococcus pneumoniae Antigen (M - Final 08/26/20 13:13 Urine Catheter - Witt Legionella Antigen - Final 08/26/20 06:55 Mucosa - Nose SARS-CoV-2 Antigen (Rapid) - Final Physical Exam Narrative Alert awake oriented x 3 no obvious distress no pallor no icterus no JVD s1s2 no murmurs lungs clear abdomen distended no edema no cyanosis witt + Assessment & Plan Assessment/Plan (1) JOSE (acute kidney injury): PLAN: baseline creatinine was normal in the past. UA is benign Witt in with clear yellow urine received CT contrast for CTPE on admission but cr was already high BP low in setting of septic shock, today he is off pressors likely ATN in setting of above events. no indications for BACTERIOLOGY RESEARCH ASSISTANT. CR BETTER
[2020-08-29 20:07] LABS: Folate, RBC (Hct) Test 25.4 % (37.5-51.0)
[2020-08-29] MEDS: Atorvastatin Calcium 40 MG Tablet PO (21:49)
[2020-08-30] VITALS (12 sets, daily range): BP systolic 92–128; BP diastolic 50–71; PULSE 69–109; RESP 16–18; TEMP 36.6–37.2; O2SAT 92–97
--- NOTE | 2020-08-30 05:55 | US_ITS ---
STUDY: ABDOMINAL ULTRASOUND - RIGHT UPPER QUADRANT REASON FOR VISIT: Male, 69 years old Decompensated cirrhosis -ascites TECHNIQUE: Ultrasound evaluation of the right upper quadrant was performed with real-time and static pineda-scale imaging. TECHNICAL QUALITY: Adequate. COMPARISON: None. FINDINGS: Assessment for ascites and possible paracentesis. A small amount of fluid is seen in the right lower quadrant. Not enough for a safe paracentesis. US/Abdomen Limited IMPRESSION: Small amount of fluid in the right lower quadrant. Not enough for a safe paracentesis. Electronically Signed: Magnus Garcia MD at 15:25 EDT , Service support ,
[2020-08-30 06:16] LABS: Absolute Lymphocyte Count 1.36 X10^3/uL (0.83-4.51); Absolute Neutrophil Count 6.5 X10^3/uL (2.0-7.7); Basophil# 0.02 X10^3/uL; Basophil% 0.2 % (0-1); Eosinophil# 0.07 X10^3/uL; Eosinophils% 0.7 % (0-5); Hematocrit 27.1 % (40-54); Hemoglobin 8.9 g/dL (13.0-16.5); Lymphocyte # 1.36 X10^3/ul (0.83-4.51); Lymphocyte % 14.2 % (19-41); Mean Corp Hgb Conc 32.8 g/dL (32-36); Mean Corpuscular Hgb 37.9 pg (27.0-32.0); Mean Corpuscular Volume 115.3 fL (80-94); Mean Platelet Vol. 11.9 fl (6.2-12.0); Monocyte# 1.31 X10^3/uL; Monocyte% 13.7 % (0-10); NRBC Flagged by Analyzer 0 % (0-5); Neutrophil # 6.53 X10^3/uL (2.7-7.7); Neutrophil % 68.3 % (47-70); POSITIVE COUNT YES; POSITIVE MORPHOLOGY YES; Platelet Count 56 K/mm3 (150-450); RBC Distribution Width CV 15.9 % (11.6-14.6); RBC Distribution Width SD 66.6 fl (35.1-43.9); Red Blood Count 2.35 M/mm3 (4.6-6.2); White Blood Count 9.6 K/mm3 (4.4-11.0)
[2020-08-30 06:22] LABS: Differential Indicated SCAN CRITERIA MET
[2020-08-30 06:32] LABS: Hypochromasia 1+; Microcytosis 1+; Platelet Estimate MKD DEC (ADEQ)
[2020-08-30 06:41] LABS: ALB/GLOB Ratio 0.4 RATIO (0.9-2.4); AST(SGOT) 77 U/L (15-37); Alanine Aminotransfer ALT/SGPT 47 U/L (16-61); Albumin, Serum 1.8 g/dL (3.2-5.0); Alkaline Phosphatase 118 U/L (45-117); Anion Gap 5 (5-15); BUN 20 mg/dL (7-18); BUN/Creat Ratio 14.6 RATIO (10-20); Calcium,Total 7.3 mg/dL (8.5-10.1); Chloride 112 mmol/L (98-107); Creatinine, Serum 1.37 mg/dL (0.70-1.30); EST Glomerular Filtration Rate 54 mL/min (>60); Est Glom Filt Rate - Afr Amer 66 mL/min (>60); Estimated Creatinine Clearance 54.28 ml/min; Globulin 4.7 g/dL (2.2-4.2); Glucose 96 mg/dL (74-106); Protein, Total 6.5 g/dL (6.4-8.2); Sodium Level 142 mmol/L (136-145)
[2020-08-30] MEDS: Ipratropium/Albuterol Sulfate 3 ML AMPUL.NEB INHALATION ×2 (07:09→19:16)
[2020-08-30 07:25] LABS: Folates, RBC Test 1276 ng/mL (>498)
[2020-08-30] MEDS: Potassium Chloride Oral Tablet 20 MEQ 40 MEQ PO (08:28)
[2020-08-30] MEDS: Furosemide 40 MG/4 ML Vial IV ×2 (08:28→16:54)
[2020-08-30] MEDS: Ferrous Sulfate 325 MG Tablet PO (08:28)
[2020-08-30] MEDS: Pantoprazole Sodium 40 MG Tablet PO (08:28)
[2020-08-30] MEDS: Folic Acid 1 MG Tablet 2 MG PO (08:28)
[2020-08-30] MEDS: guaiFENesin 1,200 MG Tablet 1200 MG PO ×2 (08:28→20:59)
[2020-08-30] MEDS: 0.9% Saline Lock 10 ML Syringe IV ×2 (08:28→16:54)
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
[2020-08-30 12:35] LABS: Pathologist Review Reviewed
--- NOTE | 2020-08-30 17:23 | PN.RENAL_ITS ---
Subjective Subjective No new complaints Objective Data Objective Data Vital Signs: Vital Signs Temp Pulse Resp BP Pulse Ox 98.4 F 90 16 128/68 H 92 08/30/20 15:10 08/30/20 15:10 08/30/20 15:10 08/30/20 15:10 08/30/20 15:10 Oxygen Flow Rate (L/min) [1 ( 2 Initial Baseline)] Oxygen Flow Rate (L/min) 2 Oxygen Delivery Method [1 ( Nasal Cannula Initial Baseline)] Oxygen Delivery Method Nasal Cannula Weight: 112.6 kg Body Mass Index (BMI) 32.1 Intake & Output: Intake and Output for Last 24 Hours 08/28/20 08/29/20 08/30/20 23:59 23:59 23:59 Intake Total 1280 / 1280 1030 / 1280 660 / 660 Output Total 1075 / 1075 4275 / 7425 6350 / 6350 Balance 205 / 205 -3245 / -6145 -5690 / -5690 Medical Nutrition Assessment Dietitian: Nutrition Therapy Diagnosis Start: 08/26/20 15:09 Freq: Status: Active Protocol: Document 08/29/20 10:18 BP (Rec: 08/29/20 10:18 BP [id number]) Nutrition Malnutrition Evidence of Malnutrition Exists No Clinical Problem Unintended Weight Gain Etiology r/t fluid retention Signs/Symptoms as evidenced by unintentional wt gain of 42.4# x 6 months, Anasarca/Bilateral arm 3+ pitting, BLE 4+ non-pitting edema. Status Active Problem Recommendation Dietitian Recommendations/Changes Continue Cardiac diet/ Sodium restricted diet w/ 1500mL fluid restriction. Continue ensure pudding or magic cup ice cream w/ lunch and dinner for increased pro if consumed. Continue daily weights. Pt resistant to nutrition education- will provide as warranted by pt prior to discharge. Lab / Micro Data Result Diagrams: 08/30/20 05:50 08/30/20 05:50 Labs: Laboratory Results - last 24 hr 08/27/20 08:05: RBC Folate Hemolysate 324.0, RBC Folate 1276, Hematocrit 25.4 L 08/29/20 03:55: Diff Path Review Reviewed 08/30/20 05:50: WBC 9.6, RBC 2.35 L, Hgb 8.9 L, Hct 27.1 L, MCV 115.3 H, MCH 37.9 H, MCHC 32.8, RDW Std Deviation 66.6 H, RDW Coeff of Katie 15.9 H, Plt Count 56 L, MPV 11.9, Immature Gran % (Auto) 2.900 H, Neut % (Auto) 68.3, Lymph % (Auto) 14.2 L, [place] % (Auto) 13.7 H, Eos % (Auto) 0.7, Baso % (Auto) 0.2, Absolute Neuts (auto) 6.5, Absolute Lymphs (auto) 1.36, Nucleated RBC % 0, Platelet Estimate MKD DEC, Hypochromasia 1+, Microcytosis 1+ 08/30/20 05:50: Sodium 142, Potassium 3.0 L, Chloride 112 H, Carbon Dioxide 25.0, Anion Gap 5, BUN 20 H, Creatinine 1.37 H, Estim Creat Clear Calc 54.28, Est GFR (MDRD) Af Amer 66, Est GFR (MDRD) Non-Af 54 L, BUN/Creatinine Ratio 14.6, Glucose 96, Calcium 7.3 L, Total Bilirubin 2.30 H, AST 77 H, ALT 47, Alkaline Phosphatase 118 H, Total Protein 6.5, Albumin 1.8 L, Globulin 4.7 H, Albumin/Globulin Ratio 0.4 L Micro: Microbiology 08/27/20 14:15 Urine Catheter - Witt Urine Culture - Final Culture exhibits no growth. 08/26/20 07:00 Blood Culture (Wb) - Left Hand Blood Culture - Final GNR lactose electronics tester 08/26/20 06:50 Blood Culture (Wb) - Right Hand Blood Culture - Final Klebsiella pneumoniae sp pneum 08/27/20 15:45 Stool Stool Occult Blood (TIO) - Final Occult Blood Positive 08/26/20 13:30 Mucosa - Nasopharyngeal Respiratory Panel (PCR) - Final 08/26/20 13:13 Urine Catheter - Catheter Streptococcus pneumoniae Antigen (M - Final 08/26/20 13:13 Urine Catheter - Witt Legionella Antigen - Final 08/26/20 06:55 Mucosa - Nose SARS-CoV-2 Antigen (Rapid) - Final Radiography Diagnostic Testing: Radiology Impression Abdomen Ultrasound 08/30/20 05:55 IMPRESSION: Small amount of fluid in the right lower quadrant. Not enough for a safe paracentesis. Electronically Signed: Magnus Garcia MD at 15:25 EDT , Service support , Physical Exam Narrative Alert awake oriented x 3 no obvious distress no pallor no icterus no JVD s1s2 no murmurs lungs clear abdomen distended no edema no cyanosis witt + Assessment & Plan Assessment/Plan (1) JOSE (acute kidney injury): PLAN: baseline creatinine was normal in the past. UA is benign Witt in with clear yellow urine received CT contrast for CTPE on admission but cr was already high BP low in setting of septic shock, today he is off pressors likely ATN in setting of above events. 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 cr better BP better can add diuretics from my end
--- NOTE | 2020-08-30 19:35 | PCM.PN.HOSP ---
Subjective Subjective Patient was seen and examined today, radiology was not able to carry out a paracentesis due to lack of fluid noted on ultrasound. I talked to the patient briefly about discharge planning, he states that he does not have insurance coverage to go to a prison and that he would rather be discharged home when he is discharged from the hospital. Patient denies any shortness of breath or chest discomfort Objective Data Objective Data Vital Signs: Vital Signs Temp Pulse Resp BP Pulse Ox 98.4 F 90 16 128/68 H 92 08/30/20 15:10 08/30/20 15:10 08/30/20 15:10 08/30/20 15:10 08/30/20 15:10 Oxygen Flow Rate (L/min) [1 ( 2 Initial Baseline)] Oxygen Flow Rate (L/min) 2 Oxygen Delivery Method [1 ( Nasal Cannula Initial Baseline)] Oxygen Delivery Method Nasal Cannula Weight: 112.6 kg Body Mass Index (BMI) 32.1 Intake & Output: Intake and Output for Last 24 Hours 08/28/20 08/29/20 08/30/20 23:59 23:59 23:59 Intake Total 1280 / 1280 1030 / 1280 750 / 750 Output Total 1075 / 1075 4275 / 7425 6350 / 6350 Balance 205 / 205 -3245 / -6145 -5600 / -5600 Medical Nutrition Assessment Dietitian: Nutrition Therapy Diagnosis Start: 08/26/20 15:09 Freq: Status: Active Protocol: Document 08/29/20 10:18 BP (Rec: 08/29/20 10:18 BP [id number]) Nutrition Malnutrition Evidence of Malnutrition Exists No Clinical Problem Unintended Weight Gain Etiology r/t fluid retention Signs/Symptoms as evidenced by unintentional wt gain of 42.4# x 6 months, Anasarca/Bilateral arm 3+ pitting, BLE 4+ non-pitting edema. Status Active Problem Recommendation Dietitian Recommendations/Changes Continue Cardiac diet/ Sodium restricted diet w/ 1500mL fluid restriction. Continue ensure pudding or magic cup ice cream w/ lunch and dinner for increased pro if consumed. Continue daily weights. Pt resistant to nutrition education- will provide as warranted by pt prior to discharge. Lab / Micro Data Result Diagrams: 08/30/20 05:50 08/30/20 05:50 Labs: Laboratory Results - last 24 hr 08/27/20 08:05: RBC Folate Hemolysate 324.0, RBC Folate 1276, Hematocrit 25.4 L 08/29/20 03:55: Diff Path Review Reviewed 08/30/20 05:50: WBC 9.6, RBC 2.35 L, Hgb 8.9 L, Hct 27.1 L, MCV 115.3 H, MCH 37.9 H, MCHC 32.8, RDW Std Deviation 66.6 H, RDW Coeff of Katie 15.9 H, Plt Count 56 L, MPV 11.9, Immature Gran % (Auto) 2.900 H, Neut % (Auto) 68.3, Lymph % (Auto) 14.2 L, [place] % (Auto) 13.7 H, Eos % (Auto) 0.7, Baso % (Auto) 0.2, Absolute Neuts (auto) 6.5, Absolute Lymphs (auto) 1.36, Nucleated RBC % 0, Platelet Estimate MKD DEC, Hypochromasia 1+, Microcytosis 1+ 08/30/20 05:50: Sodium 142, Potassium 3.0 L, Chloride 112 H, Carbon Dioxide 25.0, Anion Gap 5, BUN 20 H, Creatinine 1.37 H, Estim Creat Clear Calc 54.28, Est GFR (MDRD) Af Amer 66, Est GFR (MDRD) Non-Af 54 L, BUN/Creatinine Ratio 14.6, Glucose 96, Calcium 7.3 L, Total Bilirubin 2.30 H, AST 77 H, ALT 47, Alkaline Phosphatase 118 H, Total Protein 6.5, Albumin 1.8 L, Globulin 4.7 H, Albumin/Globulin Ratio 0.4 L Micro: Microbiology 08/27/20 14:15 Urine Catheter - [place] Urine Culture - Final Culture exhibits no growth. 08/26/20 07:00 Blood Culture (Wb) - Left Hand Blood Culture - Final GNR lactose caddymaster 08/26/20 06:50 Blood Culture (Wb) - Right Hand Blood Culture - Final Klebsiella pneumoniae sp pneum 08/27/20 15:45 Stool Stool Occult Blood (TIO) - Final Occult Blood Positive 08/26/20 13:30 Mucosa - Nasopharyngeal Respiratory Panel (PCR) - Final 08/26/20 13:13 Urine Catheter - Catheter Streptococcus pneumoniae Antigen (M - Final 08/26/20 13:13 Urine Catheter - [place] Legionella Antigen - Final 08/26/20 06:55 Mucosa - Nose SARS-CoV-2 Antigen (Rapid) - Final Radiography Diagnostic Testing: Radiology Impression Abdomen Ultrasound 08/30/20 05:55 IMPRESSION: Small amount of fluid in the right lower quadrant. Not enough for a safe paracentesis. Electronically Signed: Magnus Garcia MD at 15:25 EDT , Service support , Physical Exam Const alert and oriented x3 Constitutional Narrative: Patient appears older than his stated age and appears unwell General Appearance: cooperative, well kempt and well developed Orientation / Consciousness: awake, oriented to person, oriented to place and oriented to time HEENT normocephalic, head/scalp atraumatic and moist oral mucous membranes Head and Scalp: normocephalic Eyes PERRL, EOMs intact bilaterally and conjunctivae normal Neck nuchal rigidity, supple, no JVD, thyroid normal and no carotid bruits General: trachea midline Resp normal respiratory effort, no retractions, no use of accessory muscles and clear to auscultation bilaterally Auscultation: Negative for rales, rhonchi or wheezes Cardio regular rate, regular rhythm, S1 normal heart sound, S2 normal heart sound, no murmurs, no rub and no gallops GI soft to palpation and non-tender GI Narrative: Patient's abdomen appears to be moderately distended Extremity Extremity Narrative: Patient has lower leg edema bilaterally which is +2 mm General Extremity: edema Skin no rashes or lesions noted and no wounds General Skin Exam: no breakdown Neuro oriented x3, CN's II-XII intact bilaterally, no focal motor deficits and no sensory deficits noted Sensorium / Orientation: awake and alert Speech: speech normal Psych thought process normal and affect normal Assessment & Plan Assessment/Plan (1) Cirrhosis of liver: PLAN: 1. Septic shock secondary to urinary tract infection with Klebsiella pneumonia-patient will remain on current antibiotic coverage #2 chronic hypoxic respiratory failure-patient is noncompliant with home oxygen usage, he is currently on nasal cannula O2 #3 alcoholic cirrhosis #4 chronic obstructive pulmonary disease #5 acute kidney injury from acute tubular necrosis #6 generalized debility due to multiple medical problems-patient requests he be discharged home when he is medically stable #7 acute diastolic congestive heart failure #8 anemia secondary to chronic disease Prognosis for this patient is guarded Charges/Coding Visit Charges Inpatient E&M: 97084 Subs Hosp L2
[2020-08-30] MEDS: Atorvastatin Calcium 40 MG Tablet PO (20:59)
[2020-08-31] VITALS (18 sets, daily range): BP systolic 108–137; BP diastolic 54–68; PULSE 79–99; RESP 16–20; TEMP 36.7–37.2; O2SAT 78–98
[2020-08-31 06:25] LABS: Absolute Lymphocyte Count 1.42 X10^3/uL (0.83-4.51); Absolute Neutrophil Count 4.8 X10^3/uL (2.0-7.7); Eosinophil# 0.27 X10^3/uL; Eosinophils% 3.5 % (0-5); Hematocrit 23.9 % (40-54); Hemoglobin 7.8 g/dL (13.0-16.5); Lymphocyte # 1.42 X10^3/ul (0.83-4.51); Lymphocyte % 18.4 % (19-41); Mean Corp Hgb Conc 32.6 g/dL (32-36); Mean Corpuscular Hgb 36.4 pg (27.0-32.0); Mean Corpuscular Volume 111.7 fL (80-94); Monocyte% 14.2 % (0-10); NRBC Flagged by Analyzer 0 % (0-5); Neutrophil # 4.82 X10^3/uL (2.7-7.7); Neutrophil % 62.5 % (47-70); POSITIVE COUNT YES; RBC Distribution Width CV 15.7 % (11.6-14.6); RBC Distribution Width SD 63.9 fl (35.1-43.9); Red Blood Count 2.14 M/mm3 (4.6-6.2); White Blood Count 7.7 K/mm3 (4.4-11.0)
[2020-08-31 06:26] LABS: Differential Indicated SCAN CRITERIA MET; Platelet Count 46 K/mm3 (150-450)
[2020-08-31 06:47] LABS: Platelet Estimate MKD DEC (ADEQ)
[2020-08-31] MEDS: Ipratropium/Albuterol Sulfate 3 ML AMPUL.NEB INHALATION ×2 (07:25→19:34)
[2020-08-31 08:00] LABS: ALB/GLOB Ratio 0.4 RATIO (0.9-2.4); AST(SGOT) 73 U/L (15-37); Alanine Aminotransfer ALT/SGPT 46 U/L (16-61); Albumin, Serum 1.6 g/dL (3.2-5.0); Alkaline Phosphatase 115 U/L (45-117); Anion Gap 6 (5-15); BUN 19 mg/dL (7-18); Calcium,Total 7.4 mg/dL (8.5-10.1); Chloride 109 mmol/L (98-107); Creatinine, Serum 1.19 mg/dL (0.70-1.30); EST Glomerular Filtration Rate 64 mL/min (>60); Est Glom Filt Rate - Afr Amer 77 mL/min (>60); Estimated Creatinine Clearance 62.49 ml/min; Globulin 4.3 g/dL (2.2-4.2); Glucose 90 mg/dL (74-106); Potassium 3.2 mmol/L (3.5-5.1); Protein, Total 5.9 g/dL (6.4-8.2); Sodium Level 141 mmol/L (136-145)
--- NOTE | 2020-08-31 09:28 | CASEMGMT ---
Addendum entered by Yumi Leon 08/31/20 15:40: Dr. Andrew states he will update pt on staying one more night now. Delilah MCCALL CM Addendum entered by Yumi Leon 08/31/20 15:38: Per Dr. Andrew, pt is now going to get a unit of blood and will stay one more night. [facility] updated, voices understanding. Tank will still be delivered today for anticipated discharge tomorrow. CM to follow. Delilah MCCALL CM Addendum entered by Yumi Leon 08/31/20 15:20: Per [facility], pt's tank will be delivered about [address] Andrew aware that pt can be discharged. Pt updated and voices no further questions/concerns/needs. Delilah MCCALL CM Addendum entered by Yumi Leon 08/31/20 13:40: Call to [place] [facility] and they state they placed info in computer for [facility](their DME provider). Call to [facility] and they state they are working on referral and they are aware plan to discharge pt today, voices understanding. Delilah MCCALL CM [facility] 11[facility]40: Per Irene MCCALL, pt will need 2L at rest and 6L with ambulation for home oxygen. This RN CM to room and [place] [facility] paperwork completed with pt and signatures obtained at this time. Pt is also requesting(per therapy recommendations) a WW and raised toilet seat. Call to Tori [place] nurse, at [facility] where pt is on on pact team 9, to notify of pt request for DME for home, voices understanding. Tori is also updated that pt will be set up with [place] [facility] and liter flow, voices understanding. Tori requests that d/c instructions/summary be faxed to her at [facility] once obtained. . Referral for [place] [facility] faxed to [place] [facility] and call to notify that pt is ready for discharge. CM to follow. Delilah MCCALL CM Original Note: Call to [place] [facility] and per May, [place] RT, pt [facility] not [facility] and pt has [facility] A only, so if pt qualifies for home oxygen, he will need to have it set up thru [place]. CM to follow. Irene MCCALL aware to complete oxygen testing. Delilah MCCALL CM
[2020-08-31] MEDS: Ferrous Sulfate 325 MG Tablet PO (10:29)
[2020-08-31] MEDS: Potassium Chloride Oral Tablet 20 MEQ 40 MEQ PO ×2 (10:29→16:34)
[2020-08-31] MEDS: Folic Acid 1 MG Tablet 2 MG PO (10:29)
[2020-08-31] MEDS: Furosemide 40 MG/4 ML Vial IV ×2 (10:30→17:11)
[2020-08-31] MEDS: guaiFENesin 1,200 MG Tablet 1200 MG PO ×2 (10:30→20:18)
[2020-08-31] MEDS: 0.9% Saline Lock 10 ML Syringe IV ×3 (10:30→20:18)
[2020-08-31] MEDS: Pantoprazole Sodium 40 MG Tablet PO (10:30)
[2020-08-31 12:18] LABS: Pathologist Review Reviewed
[2020-08-31] MEDS: Spironolactone 50 MG Tablet PO (17:12)
[2020-08-31 17:17] LABS: Iron 24 ug/dL (65-175); Iron Binding Capacity,Total 158 ug/dL (250-450); PERCENT IRON SATURATION 15.2 % (15.0-55.0)
[2020-08-31] MEDS: Atorvastatin Calcium 40 MG Tablet PO (20:17)
[2020-08-31] MEDS: Spironolactone 25 MG Tablet PO (20:17)
--- NOTE | 2020-08-31 20:41 | PCM.PN.HOSP ---
Subjective Subjective Patient was seen and examined today, his hemoglobin trended downward today as compared with yesterday, I have decided to give the patient 1 unit of packed red blood cells and do iron studies on the patient. Patient will be set up for home oxygen. Objective Data Objective Data Vital Signs: Vital Signs Temp Pulse Resp BP Pulse Ox 98.2 F 99 18 121/68 H 92 08/31/20 20:30 08/31/20 20:30 08/31/20 20:30 08/31/20 20:30 08/31/20 20:30 Oxygen Flow Rate (L/min) [1 ( 2 Initial Baseline)] Oxygen Flow Rate (L/min) [ 6 AMBULATING with Oxygen #3] Oxygen Flow Rate (L/min) [ 5 AMBULATING with Oxygen #2] Oxygen Flow Rate (L/min) [ 4 AMBULATING with Oxygen #1] Oxygen Flow Rate (L/min) [ 0 AMBULATING on Room Air] Oxygen Flow Rate (L/min) [At 2 REST with Oxygen] Oxygen Flow Rate (L/min) [At 0 REST on Room Air] Oxygen Flow Rate (L/min) 3 Oxygen Delivery Method [1 ( Nasal Cannula Initial Baseline)] Oxygen Delivery Method Nasal Cannula Weight: 112.3 kg Body Mass Index (BMI) 32.1 Intake & Output: Intake and Output for Last 24 Hours 08/29/20 08/30/20 08/31/20 23:59 23:59 23:59 Intake Total 1030 / 1280 750 / 990 1295 / 1295 Output Total 4275 / 7425 6350 / 8810 3865 / 3865 Balance -3245 / -6145 -5600 / -7820 -2570 / -2570 Medical Nutrition Assessment Dietitian: Nutrition Therapy Diagnosis Start: 08/26/20 15:09 Freq: Status: Active Protocol: Document 08/29/20 10:18 BP (Rec: 08/29/20 10:18 BP [id number]) Nutrition Malnutrition Evidence of Malnutrition Exists No Clinical Problem Unintended Weight Gain Etiology r/t fluid retention Signs/Symptoms as evidenced by unintentional wt gain of 42.4# x 6 months, Anasarca/Bilateral arm 3+ pitting, BLE 4+ non-pitting edema. Status Active Problem Recommendation Dietitian Recommendations/Changes Continue Cardiac diet/ Sodium restricted diet w/ 1500mL fluid restriction. Continue ensure pudding or magic cup ice cream w/ lunch and dinner for increased pro if consumed. Continue daily weights. Pt resistant to nutrition education- will provide as warranted by pt prior to discharge. Lab / Micro Data Result Diagrams: 09/01/20 06:20 09/01/20 06:20 Labs: Laboratory Results - last 24 hr 08/31/20 05:38: WBC 7.7, RBC 2.14 L, Hgb 7.8 L, Hct 23.9 L, MCV 111.7 H, MCH 36.4 H, MCHC 32.6, RDW Std Deviation 63.9 H, RDW Coeff of Katie 15.7 H, Plt Count 46 L*, MPV 12.0, Immature Gran % (Auto) 1.400 H, Neut % (Auto) 62.5, Lymph % (Auto) 18.4 L, [place] % (Auto) 14.2 H, Eos % (Auto) 3.5, Baso % (Auto) 0.0, Absolute Neuts (auto) 4.8, Absolute Lymphs (auto) 1.42, Nucleated RBC % 0, Diff Path Review Reviewed, Platelet Estimate MKD 08/31/20 05:38: Sodium 141, Potassium 3.2 L, Chloride 109 H, Carbon Dioxide 26.0, Anion Gap 6, BUN 19 H, Creatinine 1.19, Estim Creat Clear Calc 62.49, Est GFR (MDRD) Af Amer 77, Est GFR (MDRD) Non-Af 64, BUN/Creatinine Ratio 16.0, Glucose 90, Calcium 7.4 L, Total Bilirubin 2.30 H, AST 73 H, ALT 46, Alkaline Phosphatase 115, Total Protein 5.9 L, Albumin 1.6 L, Globulin 4.3 H, Albumin/Globulin Ratio 0.4 L 08/31/20 05:38: Iron 24 L, TIBC 158 L, Iron Saturation 15.2 08/31/20 16:40: Blood Type O POSITIVE, Antibody Screen NEGATIVE, Crossmatch See Detail Micro: Microbiology 08/27/20 14:15 Urine Catheter - [place] Urine Culture - Final Culture exhibits no growth. 08/26/20 07:00 Blood Culture (Wb) - Left Hand Blood Culture - Final GNR lactose electronic assembler 08/26/20 06:50 Blood Culture (Wb) - Right Hand Blood Culture - Final Klebsiella pneumoniae sp pneum 08/27/20 15:45 Stool Stool Occult Blood (TIO) - Final Occult Blood Positive 08/26/20 13:30 Mucosa - Nasopharyngeal Respiratory Panel (PCR) - Final 08/26/20 13:13 Urine Catheter - Catheter Streptococcus pneumoniae Antigen (M - Final 08/26/20 13:13 Urine Catheter - [place] Legionella Antigen - Final 08/26/20 06:55 Mucosa - Nose SARS-CoV-2 Antigen (Rapid) - Final Physical Exam Narrative Physical Exam Const alert and oriented x3 Constitutional Narrative: Patient appears older than his stated age and appears unwell General Appearance: cooperative, well kempt and well developed Orientation / Consciousness: awake, oriented to person, oriented to place and oriented to time HEENT normocephalic, head/scalp atraumatic and moist oral mucous membranes Head and Scalp: normocephalic Eyes PERRL, EOMs intact bilaterally and conjunctivae normal Neck nuchal rigidity, supple, no JVD, thyroid normal and no carotid bruits General: trachea midline Resp normal respiratory effort, no retractions, no use of accessory muscles and clear to auscultation bilaterally, breath sounds are distant bilaterally Auscultation: Negative for rales, rhonchi or wheezes Cardio regular rate, regular rhythm, S1 normal heart sound, S2 normal heart sound, no murmurs, no rub and no gallops GI soft to palpation and non-tender GI Narrative: Patient's abdomen appears to be moderately distended Extremity Extremity Narrative: Patient has lower leg edema bilaterally which is +2 mm General Extremity: edema Skin no rashes or lesions noted and no wounds General Skin Exam: no breakdown Neuro oriented x3, CN's II-XII intact bilaterally, no focal motor deficits and no sensory deficits noted Sensorium / Orientation: awake and alert Speech: speech normal Psych thought process normal and affect normal Assessment & Plan Assessment/Plan (1) Cirrhosis of liver: PLAN: 1. Septic shock secondary to urinary tract infection with Klebsiella pneumonia-patient will remain on current antibiotic coverage #2 Acute hypoxic respiratory failure--patient states that he does not have home oxygen, this was confirmed by case management #3 alcoholic cirrhosis #4 chronic obstructive pulmonary disease #5 acute kidney injury from acute tubular necrosis #6 generalized debility due to multiple medical problems-patient requests he be discharged home when he is medically stable #7 acute diastolic congestive heart failure #8 anemia secondary to chronic disease-I will order serum iron level and TIBC Prognosis for this patient is guarded Charges/Coding Visit Charges Inpatient E&M: 18593 Subs Hosp L2
[2020-09-01] VITALS (9 sets, daily range): BP systolic 97–122; BP diastolic 44–69; PULSE 82–88; RESP 18–20; TEMP 36.4–37.3; O2SAT 92–96
[2020-09-01] MEDS: 0.9% Saline Lock 10 ML Syringe IV ×3 (05:58→14:53)
[2020-09-01 06:51] LABS: Absolute Lymphocyte Count 1.48 X10^3/uL (0.83-4.51); Absolute Neutrophil Count 5.7 X10^3/uL (2.0-7.7); Basophil# 0.01 X10^3/uL; Basophil% 0.1 % (0-1); Eosinophil# 0.59 X10^3/uL; Eosinophils% 6.4 % (0-5); Hematocrit 26.8 % (40-54); Hemoglobin 9.1 g/dL (13.0-16.5); Lymphocyte # 1.48 X10^3/ul (0.83-4.51); Lymphocyte % 16.1 % (19-41); Mean Corpuscular Hgb 36.8 pg (27.0-32.0); Mean Corpuscular Volume 108.5 fL (80-94); Mean Platelet Vol. 12.1 fl (6.2-12.0); Monocyte# 1.26 X10^3/uL; Monocyte% 13.7 % (0-10); NRBC Flagged by Analyzer 0 % (0-5); Neutrophil # 5.71 X10^3/uL (2.7-7.7); Neutrophil % 62.3 % (47-70); POSITIVE COUNT YES; POSITIVE MORPHOLOGY YES; RBC Distribution Width CV 17.2 % (11.6-14.6); RBC Distribution Width SD 69.3 fl (35.1-43.9); Red Blood Count 2.47 M/mm3 (4.6-6.2); White Blood Count 9.2 K/mm3 (4.4-11.0)
[2020-09-01 06:53] LABS: Differential Indicated SCAN CRITERIA MET; Platelet Count 49 K/mm3 (150-450)
[2020-09-01 07:09] LABS: Platelet Estimate MKD DEC (ADEQ)
[2020-09-01 07:10] LABS: Anion Gap 5 (5-15); BUN 18 mg/dL (7-18); BUN/Creat Ratio 15.9 RATIO (10-20); Calcium,Total 7.6 mg/dL (8.5-10.1); Chloride 106 mmol/L (98-107); Creatinine, Serum 1.13 mg/dL (0.70-1.30); EST Glomerular Filtration Rate 68 mL/min (>60); Est Glom Filt Rate - Afr Amer 82 mL/min (>60); Estimated Creatinine Clearance 65.81 ml/min; Glucose 94 mg/dL (74-106); Potassium 3.4 mmol/L (3.5-5.1); Sodium Level 139 mmol/L (136-145)
[2020-09-01] MEDS: Ipratropium/Albuterol Sulfate 3 ML AMPUL.NEB INHALATION ×2 (07:31→13:01)
[2020-09-01] MEDS: Potassium Chloride Oral Tablet 20 MEQ 40 MEQ PO (07:59)
[2020-09-01] MEDS: Pantoprazole Sodium 40 MG Tablet PO (07:59)
[2020-09-01] MEDS: Folic Acid 1 MG Tablet 2 MG PO (07:59)
[2020-09-01] MEDS: Ferrous Sulfate 325 MG Tablet PO (07:59)
[2020-09-01] MEDS: Spironolactone 25 MG Tablet PO (09:10)
[2020-09-01] MEDS: guaiFENesin 1,200 MG Tablet 1200 MG PO (09:10)
[2020-09-01] MEDS: Furosemide 40 MG/4 ML Vial IV (09:11)
[2020-09-01] MEDS: Potassium Chloride Oral Tablet 20 MEQ PO (10:29)
[2020-09-01 12:27] LABS: Pathologist Review Reviewed
--- NOTE | 2020-09-01 14:29 | PCM.DC ---
Discharge Instructions Diet Discharge Diet: - (Regular diet no added salt) Activity Discharge Activity: Return to Normal Activity Weight Bearing Status: Full weight bearing Follow Up Care Test Results: Test results from this visit will be discussed in further detail at your follow-up appointment, if applicable. Discharge Plan Admission Admit Date/Time: 08/26/20 12:04 Primary Reason for Your Visit: Shock secondary to urinary tract infection Attending Provider: Neville Andrew Primary Care Provider: [facility],[place] Consulting Providers: Poornima Chang ; Joni Helms ; Jack Nice ; Casper Rojas Instructions Additional Instructions / Restrictions: Use oxygen at 2 L/min via nasal cannula at all times, he is oxygen at 6 L/min via nasal cannula when ambulating Discharge Orders/Prescriptions Prescriptions: New pantoprazole 40 mg Tablet,Delayed Release (Dr/Ec) 40 mg PO DAILY Qty: 30 RF: 0 ferrous sulfate [FeroSul] 325 mg (65 mg iron) Tablet 325 mg PO BID Qty: 60 RF: 0 spironolactone 25 mg Tablet 25 mg PO BID Qty: 60 RF: 0 potassium chloride [Klor-Con M20] 20 mEq Tablet,Er Particles/Crystals 40 meq PO DAILYCM Qty: 60 RF: 0 albuterol sulfate [Ventolin HFA] 90 mcg/actuation HFA aerosol inhaler 2 puff inhalation .QID Qty: 8.5 RF: 0 Spiriva with HandiHaler 18 mcg capsule, w/inhalation device 1 cap inhalation DAILY Qty: 30 RF: 0 furosemide [Lasix] 40 mg tablet 40 mg PO BID Qty: 60 RF: 0 Continued metoprolol tartrate 25 MG tablet 25 mg PO BID RF: 0 ergocalciferol (vitamin D2) 50,000 UNIT capsule 50,000 unit PO QMONTH RF: 0 Discontinued ferrous sulfate 325 MG tablet 325 mg PO DAILY RF: 0 Lactobacillus acidophilus 1 EACH capsule 1 ea PO DAILY RF: 0 prednisone 20 MG tablet 40 mg PO DAILY Qty: 10 RF: 0 levofloxacin 750 MG tablet 750 mg PO DAILY Qty: 3 RF: 0 albuterol sulfate 1 PUFF inhaler 1 - 2 puff inhalation Q4H PRN PRN (Reason: Sob &/Or Wheezing) Qty: 1 RF: 0 amlodipine 10 MG tablet 10 mg PO DAILY Qty: 30 RF: 0 [facility] - Within 2 Weeks Disposition Disposition (needs filled in before D/C Order can be placed): Home, Self Care
--- NOTE | 2020-09-01 15:25 | CASEMGMT ---
Addendum entered by Jd Juares 09/01/20 17:02: Discharge instructions faxed to [facility] Original Note: CAL JACQUES note: Pt being discharged home. CAL JACQUES confirmed portable oxygen tank from [facility] is in pt's room and RNIrene, aware to send it home w/pt at discharge. Call placed to [facility]. They are aware pt is being discharged home today and will need O2 concentrator delivered to his home once he gets there. Pt to call them @ [phone] when he arrives home so concentrator and other portable tanks to be delivered to his home. Pt made aware of same. Rx's have been e-scribed to [facility]. Pt confirms he has a Spiriva inhaler and states he also has an Albuterol inhaler. Call placed to Ever in [facility] pharmacy to ask her not to fill the Spiriva Rx or Proair, per Dr Andrew request. He was made aware total cost of new rx's @ [facility] pharmacy will be approx $150. He states this is affordable. He states his neighbor will be picking him up to take him home today and she is bringing his debit card in to pay for the medications. Billy CENTNEON CAL JACQUES
--- NOTE | 2020-09-01 16:23 | PHA.DC.MC ---
Pharmacy Service has performed discharge medication reconciliation and counseling for this patient. 1. FUROSEMIDE 40MG PO BIDLX 2. SPIRONOLACTONE 25MG PO BID 3. POTASSIUM CHLORIDE 40MG PO DAILYCM 4. FERROUS SULFATE 325MG PO BIDCM 5. PANTOPRAZOLE 40MG PO DAILY The patient's discharge medication list was reviewed for discrepancies and discrepancies were resolved. Patient can not afford Spiriva and Albuterol, will not fill at this time. Home Medications metoprolol tartrate 25 mg PO BID 10/05/13 ergocalciferol (vitamin D2) 50,000 unit PO QMONTH 12/26/18 albuterol sulfate [Ventolin HFA] 2 puff INHALATION .QID #8.5 g 09/01/20 ferrous sulfate [FeroSul] 325 mg PO BID #60 tab 09/01/20 furosemide [Lasix] 40 mg PO BID #60 tab 09/01/20 pantoprazole 40 mg PO DAILY #30 tab 09/01/20 potassium chloride [Klor-Con M20] 40 meq PO DAILYCM #60 tab 09/01/20 spironolactone 25 mg PO BID #60 tab 09/01/20 tiotropium bromide [Spiriva with HandiHaler] 1 cap INHALATION DAILY #30 inh 09/01/20 The patient was counseled on the following discharge medications and changes in medications for homegoing were reviewed. The Reason for Use, instructions for use, and potential side effects were reviewed for all new medications. The patient's questions regarding all of their medications were answered. The patient was able to verbally demonstrate an understanding of their discharge medications.
--- NOTE | 2020-09-01 17:25 | NURSING ---
Right IJ dc'd per order. Tip intact, 2 sutures removed. Pressure applied x5 minutes. Vaseline guaze with 2x2 and secured with tegaderm. Instructed to lie flat x 30 minutes.
--- NOTE | 2020-09-02 15:03 | CASEMGMT ---
CAL JACQUES Discharge Follow-up Phone Call: MOON: 12 Strata: 3 Call Date: 09/02/20 Discharge Date: 09/01/20 Time of Call: 1500 Duration: 1 min Admitting Diagnosis: Acute resp failure CAL JACQUES attempted to complete follow-up phone call after recent hospitalization. No answer, unable to leave voicemail as call was disconnected.
--- NOTE | 2020-09-04 07:35 | DS.PCM_ITS ---
Providers Date of Admission: 08/26/20 Date of Discharge: 09/01/20 Primary Care Physician: [facility] Consultations 08/26/20 16:21 Consult: Urology Routine Consulting Provider: Casper Rojas Reason for Consult: hematuria with clots EMERGENT Consult: No Notified: Yes Date Notified: 08/26/20 Time Notified: 12:03 Method of Notification: Verbal 08/26/20 18:28 Consult: Cardiology Routine Consulting Provider: Poornima Chang Reason for Consult: elevated trop, CHF Exa, cirrhosis EMERGENT Consult: No Notified: Yes Date Notified: 08/26/20 Time Notified: 18:29 Method of Notification: Verbal 08/26/20 20:57 Consult: Suede Brusher / Pulmonary Medicine Routine Consulting Provider: Joni Helms Reason for Consult: severe sepsis EMERGENT Consult: No Notified: Yes Date Notified: 08/26/20 Time Notified: 20:22 Method of Notification: Text Method of Consult:: In-Person 08/28/20 07:28 Consult: Nephrology Routine Consulting Provider: Jack Nice Reason for Consult: JOSE ON CKD, Alcoholic cirrhosis, septic shock, HRS? EMERGENT Consult: No Notified: Yes Date Notified: 08/28/20 Time Notified: 07:29 Method of Notification: Answering Service Reason For Visit: ACUTE HYPOXIC RESPIRATORY FAILURE Diagnosis Discharge Diagnosis (1) Cirrhosis of liver: Status: Acute Code(s): K74.60 - Unspecified cirrhosis of liver Plan: 1. Septic shock secondary to urinary tract infection with Klebsiella pneumonia #2 Acute hypoxic respiratory failure #3 alcoholic cirrhosis #4 chronic obstructive pulmonary disease #5 acute kidney injury from acute tubular necrosis #6 generalized debility due to multiple medical problems #7 acute diastolic congestive heart failure #8 Iron deficiency anemia #9 thrombocytopenia secondary to alcoholic cirrhosis Medications at Discharge Home Medications metoprolol tartrate 25 mg PO BID 10/05/13 ergocalciferol (vitamin D2) 50,000 unit PO QMONTH 12/26/18 albuterol sulfate [Ventolin HFA] 2 puff INHALATION .QID #8.5 g 09/01/20 ferrous sulfate [FeroSul] 325 mg PO BID #60 tab 09/01/20 furosemide [Lasix] 40 mg PO BID #60 tab 09/01/20 pantoprazole 40 mg PO DAILY #30 tab 09/01/20 potassium chloride [Klor-Con M20] 40 meq PO DAILYCM #60 tab 09/01/20 spironolactone 25 mg PO BID #60 tab 09/01/20 tiotropium bromide [Spiriva with HandiHaler] 1 cap INHALATION DAILY #30 inh 09/01/20 Hospital Course Operations None Procedures 2-D Echocardiogram and Central line placement Summary of Care Provided Minutes Spent on Discharge: 33 Hospital Course: This 69-year-old white male presented to the emergency department at [facility] for evaluation of dyspnea and hematuria. He receives his outpatient medical care at the [facility] in [place]. Work-up in the emergency room included a chest CTA that showed evidence of cirrhosis and upper abdominal ascites, no pulmonary embolism was noted, there was evidence of pulmonary fibrosis. Lab work showed a normal white blood cell count, hemoglobin was 9.6, platelet count was 60,000. Patient's liver enzymes were elevated with a bilirubin of 4, AST of 86, and the patient's creatinine was elevated at 1.36. Patient's INR was elevated at 2.5. Patient was hypoxic on room air and required nasal cannula oxygen. Urinalysis revealed 25-50 RBCs and 25-50 WBCs as well as +1 bacteria. Patient was admitted for acute hypoxic respiratory failure, alcoholic cirrhosis with ascites, hematuria, and acute kidney injury. After admission to the PCU, patient became more tachypneic and tachycardic, a twelve-lead EKG was performed which showed junctional rhythm with nonspecific ST-T wave changes, cardiology was consulted and the patient was transferred to ICU, lactic acid was noted to be elevated at 3.5 and the patient's blood pressure dropped indicating septic shock, he was placed on Levophed and seen by critical care. Patient blood culture was positive for Klebsiella pneumoniae. Patient improved and was transferred to PCU for further care. Patient was seen by PT and OT, lab work revealed an iron deficiency anemia and he was given an infusion of Venofer. Patient declined constantine sing home placement, he required home oxygen at the time of discharge-at rest on room air, patient's pulse ox was 88%, at rest with oxygen at 2 L his pulse ox was 94%, patient required oxygen at 6 L on ambulation to maintain his pulse ox at 90%. On 09/01/20, patient was seen and examined: Physical Exam Const alert and oriented x3 Constitutional Narrative: Patient appears older than his stated age and appears unwell General Appearance: cooperative, well kempt and well developed Orientation / Consciousness: awake, oriented to person, oriented to place and oriented to time HEENT normocephalic, head/scalp atraumatic and moist oral mucous membranes Head and Scalp: normocephalic Eyes PERRL, EOMs intact bilaterally and conjunctivae normal Neck nuchal rigidity, supple, no JVD, thyroid normal and no carotid bruits General: trachea midline Resp normal respiratory effort, no retractions, no use of accessory muscles and clear to auscultation bilaterally, breath sounds are distant bilaterally Auscultation: Negative for rales, rhonchi or wheezes Cardio regular rate, regular rhythm, S1 normal heart sound, S2 normal heart sound, no murmurs, no rub and no gallops GI soft to palpation and non-tender GI Narrative: Patient's abdomen appears to be moderately distended Extremity Extremity Narrative: Patient has lower leg edema bilaterally which is +2 mm General Extremity: edema Skin no rashes or lesions noted and no wounds General Skin Exam: no breakdown Neuro oriented x3, CN's II-XII intact bilaterally, no focal motor deficits and no sensory deficits noted Sensorium / Orientation: awake and alert Speech: speech normal Psych thought process normal and affect normal Patient was discharged home in stable condition on 09/01/20 Weight / BMI Weight Weight: 101.1 kg Body Mass Index (BMI) 32.1 ABG / Lab / Microbiology Data Result Diagrams: 09/01/20 06:20 09/01/20 06:20 Microbiology: Microbiology 08/27/20 14:15 Urine Catheter - [place] Urine Culture - Final Culture exhibits no growth. 08/26/20 07:00 Blood Culture (Wb) - Left Hand Blood Culture - Final GNR lactose manager library 08/26/20 06:50 Blood Culture (Wb) - Right Hand Blood Culture - Final Klebsiella pneumoniae sp pneum 08/27/20 15:45 Stool Stool Occult Blood (TIO) - Final Occult Blood Positive 08/26/20 13:30 Mucosa - Nasopharyngeal Respiratory Panel (PCR) - Final 08/26/20 13:13 Urine Catheter - Catheter Streptococcus pneumoniae Antigen (M - Final 08/26/20 13:13 Urine Catheter - [place] Legionella Antigen - Final 08/26/20 06:55 Mucosa - Nose SARS-CoV-2 Antigen (Rapid) - Final D/C Instructions Discharge Diet: - (Regular diet no added salt) Weight Bearing Status: Full weight bearing Meaningful Use Info Meaningful Use Diagnoses (Choose all that apply): CHF CHF CATHERINE/ARB ordered at discharge?: No Reason CATHERINE/ARB not ordered?: Not indicated Documented LVEF (%): 60 Discharge Plan Admission Admit Date/Time: 08/26/20 12:04 Primary Reason for Your Visit: Shock secondary to urinary tract infection Attending Provider: Neville Andrew Primary Care Provider: [facility] Consulting Providers: Poornima Chang ; Joni Helms ; Jack Nice ; Casper Rojas Instructions Additional Instructions / Restrictions: Use oxygen at 2 L/min via nasal cannula at all times, he is oxygen at 6 L/min via nasal cannula when ambulating Discharge Orders/Prescriptions Prescriptions: New pantoprazole 40 mg Tablet,Delayed Release (Dr/Ec) 40 mg PO DAILY Qty: 30 RF: 0 ferrous sulfate [FeroSul] 325 mg (65 mg iron) Tablet 325 mg PO BID Qty: 60 RF: 0 spironolactone 25 mg Tablet 25 mg PO BID Qty: 60 RF: 0 potassium chloride [Klor-Con M20] 20 mEq Tablet,Er Particles/Crystals 40 meq PO DAILYCM Qty: 60 RF: 0 albuterol sulfate [Ventolin HFA] 90 mcg/actuation HFA aerosol inhaler 2 puff inhalation .QID Qty: 8.5 RF: 0 Spiriva with HandiHaler 18 mcg capsule, w/inhalation device 1 cap inhalation DAILY Qty: 30 RF: 0 furosemide [Lasix] 40 mg tablet 40 mg PO BID Qty: 60 RF: 0 Continued metoprolol tartrate 25 MG tablet 25 mg PO BID RF: 0 ergocalciferol (vitamin D2) 50,000 UNIT capsule 50,000 unit PO QMONTH RF: 0 Discontinued ferrous sulfate 325 MG tablet 325 mg PO DAILY RF: 0 Lactobacillus acidophilus 1 EACH capsule 1 ea PO DAILY RF: 0 prednisone 20 MG tablet 40 mg PO DAILY Qty: 10 RF: 0 levofloxacin 750 MG tablet 750 mg PO DAILY Qty: 3 RF: 0 albuterol sulfate 1 PUFF inhaler 1 - 2 puff inhalation Q4H PRN PRN (Reason: Sob &/Or Wheezing) Qty: 1 RF: 0 amlodipine 10 MG tablet 10 mg PO DAILY Qty: 30 RF: 0 Referrals [facility] [Primary [facility] Provider] - Within 2 Weeks Disposition Disposition (needs filled in before D/C Order can be placed): Home, Self Care Charges/Coding Visit Charges Inpatient E&M: 47561 Disch Hosp
== END 2020-09-01 17:42 | disposition home or self-care (01) | DRG 871 ==
LOC: ED 11:20 → PCU 12:08 → ICU 08-27 06:38 → PCU 08-30 07:15 → ICU 08-30 09:30
PROVIDERS: Emergency Medicine; Hospitalist; Internal Medicine Critical Care Medicine; Admitting Provider Internal Medicine; Emergency Provider Emergency Medicine; Visit Provider Internal Medicine
DX: A41.9 Sepsis, unspecified organism (principal); J96.01 Acute respiratory failure with hypoxia; K76.7 Hepatorenal syndrome; I21.A1 Myocardial infarction type 2; R65.21 Severe sepsis with septic shock; I50.31 Acute diastolic (congestive) heart failure; N17.0 Acute kidney failure with tubular necrosis; N39.0 Urinary tract infection, site not specified; N17.9 Acute kidney failure, unspecified; I42.6 Alcoholic cardiomyopathy; D68.9 Coagulation defect, unspecified; R31.0 Gross hematuria; B96.1 Klebsiella pneumoniae [K. pneumoniae] as the cause of diseases classified elsewhere; J44.9 Chronic obstructive pulmonary disease, unspecified; R19.5 Other fecal abnormalities; K70.31 Alcoholic cirrhosis of liver with ascites; I11.0 Hypertensive heart disease with heart failure; I27.81 Cor pulmonale (chronic); Z20.822 Contact with and (suspected) exposure to COVID-19; D69.6 Thrombocytopenia, unspecified; D50.9 Iron deficiency anemia, unspecified; D63.8 Anemia in other chronic diseases classified elsewhere; D53.9 Nutritional anemia, unspecified; E66.9 Obesity, unspecified; Z68.32 Body mass index [BMI] 32.0-32.9, adult; Z91.19 Patient's noncompliance with other medical treatment and regimen; F10.21 Alcohol dependence, in remission; Z87.891 Personal history of nicotine dependence
CPT/HCPCS: 36415; 36600; 71045; 71275; 76705; 80048; 80053; 80061; 81001; 82274; 82607; 82746; 82747; 82803; 83540; 83550; 83605; 83735; 83880; 84484; 85014; 85018; 85025; 85610; 85730; 86644; 86850; 86900; 86901; 86920; 86922; 87040; 87077; 87086; 87186; 87426; 87449; 87633; 93005; 93306; 94640; 94667; 94668; 97110; 97116; 97163; 97166; 97530; 97535; 97802; 97803; 99251; 99285; 99406; J7030; J7040; J7050; P9016; P9017; Q9957; Q9967; A4216; C1751; C8929; G0463; J0696; J1940; J2916; J3490

== ENCOUNTER 2020-09-15 17:44 | Emergency (ER) | payer OTHER, SELFPAY ==
[2020-08-26 13:16] VITALS: BMI 32.1
[2020-09-15] VITALS (9 sets, daily range): BP systolic 100–120; BP diastolic 42–77; PULSE 101–108; RESP 16–19; TEMP 36.4–36.7; O2SAT 94–100
--- NOTE | 2020-09-15 18:27 | EKG12_ITS ---
Test Reason : SOB Blood Pressure : / mmHG Vent. Rate : 105 BPM Atrial Rate : 105 BPM P-R Int : 194 ms QRS Dur : 082 ms QT Int : 332 ms P-R-T Axes : 039 007 -72 degrees QTc Int : 438 ms Sinus tachycardia with Premature supraventricular complexes Nonspecific T wave abnormality Abnormal ECG Confirmed by FRANK AHN, NAE ([id number]), subeditor ELO PINK ([id number]) on 09/17/2020 10:13:23 A M Referred By: JOCELYN Confirmed By:LEYDI MARIE MD
--- NOTE | 2020-09-15 18:33 | US_ITS ---
EXAM: US DUPLEX LEFT LOWER EXTREMITY VEINS CLINICAL INDICATION: LT LEG SWELLING AND PAIN TECHNIQUE: Real-time duplex ultrasound scan of the left lower extremity veins integrating B-mode two-dimensional vascular structure, Doppler spectral analysis, color flow Doppler imaging and compression. This report was created using [employer] report [employer] technology. COMPARISON: None. FINDINGS: DEEP VEINS: Unremarkable. No DVT in the visualized common femoral, femoral, or popliteal veins. The veins demonstrate normal color flow, are normally compressible, with normal phasic flow and/or augmentation response. SUPERFICIAL VEINS: Unremarkable. No thrombus in the visualized great saphenous vein. SOFT TISSUES: Leg and calf edema. No popliteal cyst. US/Venous Duplex Imag/Limited/Uni IMPRESSION: No acute findings in the left lower extremity veins. Electronically Signed: Tori Jones MD at 20:36 EDT Tel , Service support ,
[2020-09-15] MEDS: 0.9% Normal Saline 1,000 ML 999 ML IV (19:02)
[2020-09-15 19:03] LABS: Hematocrit 28.1 % (40-54); Hemoglobin 8.5 g/dL (13.0-16.5); Mean Corp Hgb Conc 30.2 g/dL (32-36); Mean Corpuscular Hgb 36.8 pg (27.0-32.0); Mean Corpuscular Volume 121.6 fL (80-94); Mean Platelet Vol. 12.4 fl (6.2-12.0); POSITIVE COUNT YES; POSITIVE DIFFERENTIAL YES; POSITIVE MORPHOLOGY YES; RBC Distribution Width CV 15.5 % (11.6-14.6); RBC Distribution Width SD 68.9 fl (35.1-43.9); Red Blood Count 2.31 M/mm3 (4.6-6.2); White Blood Count 7.8 K/mm3 (4.4-11.0)
[2020-09-15] MEDS: HYDROmorphone 0.5 MG/0.5 ML SYRINGE IV (19:03)
--- NOTE | 2020-09-15 19:06 | EDS_ITS ---
HPI History of Present Illness Chief Complaint: Edema Informant: patient Onset/Context/Timing Onset: Weeks Context: Sudden Onset (Left lower leg pain and significant swelling today) Timing: Continuous Quality: Pain Location: Left lower extremity Current Severity: Moderate Maximum Severity: Severe Worsened by: Palpation Relieved by: Nothing Associated Symptoms Associated Symptoms: Not feeling well, lightheadedness, shortness of breath Narrative Narrative: Patient is a 69-year-old male with history of alcoholic liver disease, cirrhosis, pneumonia, lung disease, GERD, hypertension who presents with not feeling well for the past several days. He presents because of severe left lower extremity pain and increased swelling. He does have 2 pillow orthopnea. He denies PND. Denies chest pain. Denies history of coronary disease. He denies black or maroon-colored stool. He has not been compliant with his diet. He denies rhinorrhea, congestion postnasal drainage. Denies sore throat. He denies cough. He denies bruising easily. He is not on an anticoagulant. Prior similar symptoms: No Recent Illness/Hospitalization: No PFSH PFSH Medical History Alcohol abuse Congestive heart failure (CHF) COPD (chronic obstructive pulmonary disease) HTN (hypertension) Tobacco use Home Medications metoprolol tartrate 25 mg PO BID 10/05/13 [History Last Taken Unknown] ergocalciferol (vitamin D2) 50,000 unit PO QMONTH 12/26/18 [History Last Taken Unknown] albuterol sulfate [Ventolin HFA] 2 puff INHALATION .QID #8.5 g 09/01/20 [Rx Last Taken Unknown] ferrous sulfate [FeroSul] 325 mg PO BID #60 tab 09/01/20 [Rx Last Taken Unknown] furosemide [Lasix] 40 mg PO BID #60 tab 09/01/20 [Rx Last Taken Unknown] pantoprazole 40 mg PO DAILY #30 tab 09/01/20 [Rx Last Taken Unknown] potassium chloride [Klor-Con M20] 40 meq PO DAILYCM #60 tab 09/01/20 [Rx Last Taken Unknown] spironolactone 25 mg PO BID #60 tab 09/01/20 [Rx Last Taken Unknown] tiotropium bromide [Spiriva with HandiHaler] 1 cap INHALATION DAILY #30 inh 09/01/20 [Rx Last Taken Unknown] Allergy/AdvReac Type Severity Reaction Status Date / Time CATHERINE Inhibitors Allergy Angioedema Verified 12/26/18 05:21 Social History (Updated 09/15/20 @ 19:[address] Tan Root MD) household members: none housing: apartment Smoking Status: Former smoker alcohol intake: former substance use type: does not use ROS ROS ED Constitutional Constitutional ED: Denies chills, fever(s), subjective or sweats Eyes Eyes: Denies blurry vision, change in vision or diplopia ENT ENT ED: Denies ear pain, rhinorrhea or sore throat Cardiovascular Cardiovascular: Reports orthopnea; Denies chest pain, palpitations, paroxysmal nocturnal dyspnea or racing heartbeat Respiratory/Chest Respiratory/Chest: Reports dyspnea, dyspnea on exertion and orthopnea; Denies cough, paroxysmal nocturnal dyspnea or sputum Gastrointestinal Gastrointestinal: Reports nausea; Denies abdominal pain, constipation, diarrhea, melena or vomiting Genitourinary Genitourinary ED: Denies dysuria, hematuria or urinary frequency Musculoskeletal Musculoskeletal: Denies arthralgias, back pain, myalgias or neck pain Integumentary Denies rash Neurologic Neurologic: Reports weakness; Denies paresthesias Psychiatric Psychiatric: Reports depression Endocrine Endocrinology: Reports polydipsia and polyuria; Denies polyphagia EXAM Physical Exam Const Vital Signs: 09/15/20 17:47 09/15/20 17:49 09/15/20 17:50 Temperature 98.1 F 98.1 F Temperature Source Temporal Temporal Pulse Rate 107 H 107 H Respiratory Rate 18 18 Respiratory Effort Short of Breath Respiratory Pattern Normal Blood Pressure 100/42 L 100/42 L Blood Pressure Mean 61 61 Pulse Ox 99 99 Oxygen Delivery Method Nasal Cannula Nasal Cannula Oxygen Flow Rate (L/min) 4 4 09/15/20 18:59 09/15/20 19:06 09/15/20 19:07 Temperature 97.5 F L 97.5 F L Temperature Source Temporal Temporal Pulse Rate 105 H 102 H Respiratory Rate 19 H 16 Respiratory Effort Respiratory Pattern Blood Pressure 114/42 L 108/57 L Blood Pressure Mean 66 74 Pulse Ox 99 100 Oxygen Delivery Method Nasal Cannula Nasal Cannula Oxygen Flow Rate (L/min) 3 3 09/15/20 19:35 Temperature Temperature Source Pulse Rate 101 H Respiratory Rate 17 Respiratory Effort Respiratory Pattern Blood Pressure 108/51 L Blood Pressure Mean 70 Pulse Ox 98 Oxygen Delivery Method Nasal Cannula Oxygen Flow Rate (L/min) 3 Positive well nourished, well developed and obese General Appearance ED: well developed and other Patient appears ill. Nutritional Appearance: obese HEENT Reports dry mucous membranes HEENT Narrative: 6 ears normal. Heads atraumatic. Uvula midline. Posterior pharynx erythema. Mouth ED: Yes dry mucous membranes Mouth: dry mucous membranes Eyes PERRL and EOMs intact bilaterally General Eye ED: Yes scleral icterus; Negative for pale conjunctiva Neck no lymphadenopathy, supple and no JVD Chest Wall inspection of chest normal and palpation of chest normal Resp normal respiratory effort and clear to auscultation bilaterally Cardio regular rhythm, S1 normal heart sound, S2 normal heart sound and no murmurs GI normal to inspection, nondistended, normoactive bowel sounds and non-tender Palpation: soft Rectal Exam: other Other Details: Patient does have a fluid wave. 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 There is no DP or PT pulse due to edema. There is biphasic flow with Doppler. Patient has bounding femoral pulse bilaterally. He has marked pitting edema of both extremities. The edema is worse on the left. He also has pain out of proportion to pressure. General Extremety ED: Yes edema and tenderness General Extremity: edema Neuro oriented x3, CN's II-XII intact bilaterally and no sensory deficits noted Sensorium / Orientation: Negative for alert Motor Exam: strength 5/5 throughout Psych mental status grossly normal Skin Skin Narrative: Multiple areas of discoloration left lower extremity thigh, leg and foot. Both feet are cool to touch. There is flow noted with Doppler MDM MDM MDM Narrative Medical decision making narrative: Initial blood pressure was low. A fluid bolus was ordered. Concern patient has a DVT since there is flow noted with Doppler. Since he is tachypneic this may also represent a pulmonary embolus. Stat portable venous duplex was ordered to the left lower extremity. Appropriate blood work was obtained to rule out anemia, white count, renal failure, hyperkalemia since he has prominent T waves noted on his EKG, lactic acidosis and coagulopathy since he has liver disease. Chest x-ray was obtained to determine if there is a pulmonary cause for his dyspnea versus metabolic. Venous duplex study reveals significant edema. There is no evidence of deep venous thrombosis. 2 view x-ray of the femur and tibia were obtained to assess for subcu air. No subcu air was noted. Since there is no evidence of subcu air concern patient has compartment syndrome. He also has shock liver with coagulopathy. Lactate is 11.4. Because there was concern the patient may have necrotizing fasciitis/sepsis initially Zosyn and vancomycin was ordered. Subsequently clindamycin was ordered. Since his white count is normal and there is no subcu air on x-ray and venous duplex is negative with flow suspect patient has compartment syndrome since his leg and thigh are taut exquisitely painful. Lab Data Labs: Laboratory Results - last 24 hr 09/15/20 09/15/20 09/15/20 18:50 18:50 18:50 WBC 7.8 RBC 2.31 L Hgb 8.5 L Hct 28.1 L MCV 121.6 H MCH 36.8 H MCHC 30.2 L RDW Std Deviation 68.9 H RDW Coeff of Katie 15.5 H Plt Count 33 L* MPV 12.4 H Immature Gran % (Auto) ECONOMIC MANAGER Neut % (Auto) ECONOMIC MANAGER Lymph % (Auto) ECONOMIC MANAGER Canadian % (Auto) ECONOMIC MANAGER Eos % (Auto) ECONOMIC MANAGER Baso % (Auto) ECONOMIC MANAGER Absolute Neuts (auto) 6.2 Absolute Lymphs (auto) 0.39 L Total Counted 100 Neutrophils % (Manual) 22 L Band Neutrophils % 58 H Lymphocytes % (Manual) 5 L Monocytes % (Manual) 11 H Metamyelocytes % 4 H Nucleated RBC % ECONOMIC MANAGER Diff Path Review May foll Atypical Lymphocytes ECONOMIC MANAGER Platelet Estimate MKD DEC RBC Morphology N CHROM Anisocytosis 1+ PT 36.2 H INR 3.7 APTT 49.1 H Sodium 139 Potassium 5.9 H Chloride 112 H Carbon Dioxide 9.0 L* Anion Gap 18 H BUN 41 H Creatinine 3.78 H Estim Creat Clear Calc 19.67 Est GFR (MDRD) Af Amer 20 L Est GFR (MDRD) Non-Af 17 L BUN/Creatinine Ratio 10.8 Glucose 25 L* Lactic Acid Calcium 8.7 Total Bilirubin 8.00 H AST 38 H ALT 24 Alkaline Phosphatase 33 L Total Creatine Kinase 77 Total Protein 6.4 Albumin 1.7 L Globulin 4.7 H Albumin/Globulin Ratio 0.4 L POC Glucose 09/15/20 09/15/20 18:50 19:31 WBC RBC Hgb Hct MCV MCH MCHC RDW Std Deviation RDW Coeff of Katie Plt Count MPV Immature Gran % (Auto) Neut % (Auto) Lymph % (Auto) Canadian % (Auto) Eos % (Auto) Baso % (Auto) Absolute Neuts (auto) Absolute Lymphs (auto) Total Counted Neutrophils % (Manual) Band Neutrophils % Lymphocytes % (Manual) Monocytes % (Manual) Metamyelocytes % Nucleated RBC % Diff Path Review Atypical Lymphocytes Platelet Estimate RBC Morphology Anisocytosis PT INR APTT Sodium Potassium Chloride Carbon Dioxide Anion Gap BUN Creatinine Estim Creat Clear Calc Est GFR (MDRD) Af Amer Est GFR (MDRD) Non-Af BUN/Creatinine Ratio Glucose Lactic Acid 11.4 H* Calcium Total Bilirubin AST ALT Alkaline Phosphatase Total Creatine Kinase Total Protein Albumin Globulin Albumin/Globulin Ratio POC Glucose 12 L* ABG Data ABG results: ABG 09/15/20 19:03 Specimen Type ASHLEY VBG pH 7.15 L* VBG pO2 64 H VBG HCO3 8 L VBG Total CO2 8 L VBG O2 Sat (Calc) 86 H VBG Base Excess -21 L POC Mix VBG pCO2 Pt Tmp 21.6 L O2 Delivery Device Cannula Liter Flow 3.0 Crit Call To/Read Back Yes Blood Gas Notified Whom root Blood Gas Notified Time 19:06:03 Radiography Diagnostic Testing: Radiology Impression Venous Duplex 09/15/20 18:33 IMPRESSION: No acute findings in the left lower extremity veins. Electronically Signed: Tori Jones MD at 20:36 EDT Tel , Service support , Chest X-Ray 09/15/20 19:20 IMPRESSION: 1. No acute findings. 2. Chronic interstitial fibrosis, unchanged from 08/27/2020. Electronically Signed: Tori Jones MD at 19:53 EDT Tel , Service support , Femur X-Ray 09/15/20 19:51 IMPRESSION: Normal x-ray examination of the femur. Electronically Signed: Jaron Laurent MD at 20:22 EDT , Service support , Tibia/Fibula X-Ray 09/15/20 19:51 IMPRESSION: Bimalleolar sprain. No evidence for acute fracture Electronically Signed: Jaron aLurent MD at 20:19 EDT , Service support , Procedures Other Procedures Procedure(s): Right subclavian line. Verbal consent was obtained since patient is critical. Patient Was Prepped Draped Sterile Manner. All Members in the Room Were gowned and wearing masks per protocol. The right subclavian vein was cannulated with finder needle on first attempt on the way in. Area was anesthetized. Using Salinger technique 7.5 [place]awk triple- lumen was placed on first attempt on the way in. Blood was aspirated from all 3 ports. The nurse was instructed to use the line since blood was aspirated small 3 ports. Critical Care Time Critical Care Time: Yes Critical care time (excluding procedures): 75-104 minutes, Including time spent: (3, physical, documentation, review of prior records, initiation of treatment), Discussing w/Patient &/or Family/Operator Engineer, Discussing w/Consultants, Arranging Admission or Transfer, Performing Direct Patient Care at Bedside and - (Treatment for shock, treatment for hyperkalemia with EKG changes, treatment for hypoglycemia) Discharge Plan Triage Chief Complaint: Edema ED Provider: Tan Root Dx/Rx/DC Orders Clinical Impression: Shock, Hypoglycemia, Coagulopathy, Acute hyperkalemia, Compartment syndrome, Acute hypotension, Acidosis, lactic, Shock liver, JOSE (acute kidney injury) Prescriptions: No Action metoprolol tartrate 25 MG tablet 25 mg PO BID RF: 0 ergocalciferol (vitamin D2) 50,000 UNIT capsule 50,000 unit PO QMONTH RF: 0 pantoprazole 40 mg Tablet,Delayed Release (Dr/Ec) 40 mg PO DAILY Qty: 30 RF: 0 ferrous sulfate [FeroSul] 325 mg (65 mg iron) Tablet 325 mg PO BID Qty: 60 RF: 0 spironolactone 25 mg Tablet 25 mg PO BID Qty: 60 RF: 0 potassium chloride [Klor-Con M20] 20 mEq Tablet,Er Particles/Crystals 40 meq PO DAILYCM Qty: 60 RF: 0 albuterol sulfate [Ventolin HFA] 90 mcg/actuation HFA aerosol inhaler 2 puff inhalation .QID Qty: 8.5 RF: 0 Spiriva with HandiHaler 18 mcg capsule, w/inhalation device 1 cap inhalation DAILY Qty: 30 RF: 0 furosemide [Lasix] 40 mg tablet 40 mg PO BID Qty: 60 RF: 0 [facility] Provider[facility] [facility] [Primary [facility] Provider] - Disposition Disposition: Acute Care Hospital Discharge [facility]: [facility]
[2020-09-15 19:11] LABS: Blood Gas Specimen Type VEN; O2 Delivery Device Cannula; VBG BASE EXCESS -21 mmol/L (-1.0-3.5); VBG Bicarbonate 8 mmol/L (22-26); VBG PO2 64 mmHg (25-40); VBG SO2 86 % (50-70); VBG TCO2 8 mmol/L (23-33); VBG pCO2 21.6 mmHg (41-51); VBG pH 7.15 (7.32-7.42)
[2020-09-15 19:11] LABS: International Normalized Ratio 3.7; Prothrombin Time (Protime)PT. 36.2 SECONDS (11.7-14.9)
[2020-09-15 19:12] LABS: Partial Thromboplast Time 49.1 Seconds (24.1-36.2)
[2020-09-15 19:14] LABS: Platelet Count 33 K/mm3 (150-450)
--- NOTE | 2020-09-15 19:20 | RAD_ITS ---
STUDY: X-RAY CHEST REASON FOR EXAM: Male, 69 years old. dyspnea TECHNIQUE: Single AP portable view of the chest. COMPARISON: 08/27/2020, 12/26/2018, CT chest 08/26/2020. FINDINGS: No pleural effusion. Bilateral interstitial prominence, without significant change compared to recent studies. Normal size heart. Normal mediastinum and redd. Normal visualized pulmonary arteries. Normal visualized aortic arch and descending thoracic aorta. Normal visualized thoracic spine. Normal visualized ribs, clavicles, and shoulders. There is no demonstrated abnormality of the visualized soft tissue structures of the upper abdomen. RAD/Chest 1 View (Portable) IMPRESSION: 1. No acute findings. 2. Chronic interstitial fibrosis, unchanged from 08/27/2020. Electronically Signed: Toir Jones MD at 19:53 EDT Tel , Service support ,
[2020-09-15 19:29] LABS: ALB/GLOB Ratio 0.4 RATIO (0.9-2.4); AST(SGOT) 38 U/L (15-37); Alanine Aminotransfer ALT/SGPT 24 U/L (16-61); Albumin, Serum 1.7 g/dL (3.2-5.0); Alkaline Phosphatase 33 U/L (45-117); Anion Gap 18 (5-15); BUN 41 mg/dL (7-18); BUN/Creat Ratio 10.8 RATIO (10-20); CPK Total, Creatine Kinase 77 U/L (39-308); Calcium,Total 8.7 mg/dL (8.5-10.1); Chloride 112 mmol/L (98-107); Creatinine, Serum 3.78 mg/dL (0.70-1.30); EST Glomerular Filtration Rate 17 mL/min (>60); Est Glom Filt Rate - Afr Amer 20 mL/min (>60); Estimated Creatinine Clearance 19.67 ml/min; Globulin 4.7 g/dL (2.2-4.2); Glucose 25 mg/dL (74-106); Potassium 5.9 mmol/L (3.5-5.1); Protein, Total 6.4 g/dL (6.4-8.2); Sodium Level 139 mmol/L (136-145)
[2020-09-15 19:30] LABS: Lactic Acid 11.4 mmol/L (0.4-1.9)
[2020-09-15] MEDS: Dextrose 50%-Water 25 GM/50 ML DISP.SYRIN IV ×2 (19:34→21:02)
--- NOTE | 2020-09-15 19:35 | CPS ---
Critical results for VBG given to in ER. Physician aware of results.
[2020-09-15 19:36] LABS: Bedside Glucose 12 mg/dL (70-110)
--- NOTE | 2020-09-15 19:51 | RAD_ITS ---
STUDY: X-RAY - LEFT TIBIA AND FIBULA REASON FOR EXAM: Male, 69 years old. Injury/Pain TECHNIQUE: 4 view(s) of the tibia and fibula were obtained. COMPARISON: None. FINDINGS: Normal visualized tibia. Normal visualized fibula. Diffuse bimalleolar soft tissue swelling. RAD/Tibia & Fibula 2 Views IMPRESSION: Bimalleolar sprain. No evidence for acute fracture Electronically Signed: Jaron Laurent MD at 20:19 EDT , Service support ,
--- NOTE | 2020-09-15 19:51 | RAD_ITS ---
STUDY: X-RAY - LEFT FEMUR REASON FOR STUDY: Male, 69 years old. Injury/Pain TECHNIQUE: 4 view(s) of the femur. COMPARISON: None. FINDINGS: Normal visualized femur. Normal visualized soft tissue structure. RAD/Femur Min 2 Views IMPRESSION: Normal x-ray examination of the femur. Electronically Signed: Jaron Laurent MD at 20:22 EDT , Service support ,
--- NOTE | 2020-09-15 19:51 | ED.RN ---
CALLED [facility], SPOKE TO LUCIANO IN THE TRANSFER CENTER, TO ADVISE THE NEED FOR AN ICU TRANSFER
--- NOTE | 2020-09-15 19:54 | ED.RN ---
[facility] CALLED NO BEDS AT THIS TIME WILL TRY ANOTHER HOSPITAL
--- NOTE | 2020-09-15 19:55 | ED.RN ---
[facility] IS FULL AT THIS TIME AND CAN NOT ACCEPT ANY PATIENTS
[2020-09-15 20:00] LABS: Scan Smear per Review Criteria MANUAL DIFF
[2020-09-15 20:02] LABS: Differential Indicated MANUAL DIFF
[2020-09-15 20:07] LABS: Lymphocyte 5 % (19-41); Metamyelocyte 4 % (0-1); Monocyte 11 % (0-10); Neutrophil-Band 58 % (0-5); Neutrophil-Segmented 22 % (47-70); Total Cells Counted 100 (MANUAL DIFF)
[2020-09-15 20:08] LABS: Platelet Estimate MKD DEC (ADEQ)
[2020-09-15 20:09] LABS: Anisocytosis 1+; Red Cell Morphology N CHROM NORMAL (NORM C&C)
[2020-09-15 20:11] LABS: Absolute Lymphocyte Count 0.39 X10^3/uL (0.83-4.51); Absolute Neutrophil Count 6.2 X10^3/uL (2.0-7.7)
[2020-09-15] MEDS: Dextrose 10%-Water 250 ML 50 ML IV (20:12)
--- NOTE | 2020-09-15 20:24 | ED.RN ---
SPO[place] [facility] [place] [place] REQUESTED FOLLOW UP INFORMATION BE CALLED TO [phone], AND CHART FAXED TO [phone] WHEN PT IS TRANSFERRED
--- NOTE | 2020-09-15 20:28 | RAD_ITS ---
STUDY: X-RAY CHEST REASON FOR EXAM: Male, 69 years old. line placement TECHNIQUE: AP portable COMPARISON: 09/16/2019 1:00 PM FINDINGS: Lungs are hyperinflated. There is interstitial thickening with patchy areas of increased density bilaterally more severe in the lower lobes which may be chronic but cannot exclude coexisting inflammatory disease.. There is no demonstrated pleural abnormality. Central line is in place on the right with tip in distal superior vena cava. Normal size heart. Normal mediastinum and redd. Normal visualized pulmonary arteries. Normal visualized aortic arch and descending thoracic aorta. Normal visualized thoracic spine. Normal visualized ribs, clavicles, and shoulders. There is no demonstrated abnormality of the visualized soft tissue structures of the upper abdomen. No significant change since prior exam RAD/Chest 1 View IMPRESSION: Question chronic changes in the lower lobes however cannot exclude coexisting acute inflammatory changes. Central line placement on the right with tip in distal superior vena cava without evidence for pneumothorax Electronically Signed: Jaron Laurent MD at 21:09 EDT , Service support ,
[2020-09-15] MEDS: 0.9% Normal Saline 1,000 ML 1000 ML IV ×2 (20:49→21:32)
--- NOTE | 2020-09-15 20:53 | ED.RN ---
ACCEPTED BY [facility], THEY ARE WORKING ON TRANSPORT
[2020-09-15 21:01] LABS: Bacteria 0 SEEN /hpf (None Seen); Mucous, Urine 0 SEEN /hpf (<or=2+); Squamous Epithelial Cells - UA 0 SEEN /hpf (0-5); White Blood Cells 0 SEEN /hpf (0-5)
[2020-09-15 21:02] LABS: Color, Urine Amber (Yellow); Glucose, Dipstick Normal (Normal); Ketone-Dipstick 5 mg/dl (Negative); Leukocyte Esterase-Dipstick 25 /ul (Negative); Nitrite-Dipstick Negative (Negative); Occult Blood-Urine 10 /ul (Negative); Protein-Dipstick 30 mg/dl (Negative); Urine Clarity Sl. Cloudy (Clear); Urine Urobilinogen 1 mg/dl (Normal)
[2020-09-15 21:05] LABS: Urine Bilirubin Dipstick 3 mg/dL (Negative)
[2020-09-15 21:13] LABS: Amorphous Sediment 1+; Red Blood Cells-Urine 0-5 SEEN /hpf (0-5)
--- NOTE | 2020-09-15 21:29 | ED.RN ---
AIR TRANSPORT AUTHORIZED BY [facility] CRU[facility] AT [facility]
[2020-09-15 21:31] LABS: Bedside Glucose 113 mg/dL (70-110)
[2020-09-15 21:31] LABS: Bedside Glucose 51 mg/dL (70-110)
[2020-09-15 22:06] LABS: Bedside Glucose 104 mg/dL (70-110)
[2020-09-15] MEDS: fentaNYL 100 MCG/2 ML Ampul 50 MCG IV (22:17)
[2020-09-15] MEDS: Ondansetron 4 MG/2 ML Vial IV (22:17)
[2020-09-15 22:58] LABS: Reflex Lactate? Y
--- NOTE | 2020-09-16 06:06 | ED.RN ---
lab called with positive blood cultures results. Gram negative in rods. Patient was transferred to [facility]. called and spoke with nursing staff and relayed message at this time
--- NOTE | 2020-09-16 06:24 | ED.RN ---
LAB CALLED WITH SECOND POSITIVE BLOOD CULTURE RESULTS. CHART FAXED TO [facility] AT THIS TIME
[2020-09-16 10:54] LABS: Pathologist Review Reviewed
--- NOTE | 2020-09-18 15:42 | ED.RN ---
BLOOD CULTURE RESULTS ALONG WITH SPECIFIC ORGANISMS GIVEN TO JAZMINE BLANK [facility] PER PHONE CALL.
== END 2020-09-15 22:19 | disposition short-term general hospital (02) ==
PROVIDERS: Emergency Provider Emergency Medicine
DX: R57.9 Shock, unspecified (principal); E16.2 Hypoglycemia, unspecified; D68.9 Coagulation defect, unspecified; E87.5 Hyperkalemia; T79.A0XA Compartment syndrome, unspecified, initial encounter; X58.XXXA Exposure to other specified factors, initial encounter; Y93.9 Activity, unspecified; Y92.9 Unspecified place or not applicable; Y99.9 Unspecified external cause status; E87.2 Acidosis; K72.00 Acute and subacute hepatic failure without coma; N17.9 Acute kidney failure, unspecified; I80.202 Phlebitis and thrombophlebitis of unspecified deep vessels of left lower extremity; M79.89 Other specified soft tissue disorders; M79.662 Pain in left lower leg; K70.9 Alcoholic liver disease, unspecified; K74.60 Unspecified cirrhosis of liver; F10.10 Alcohol abuse, uncomplicated; I11.0 Hypertensive heart disease with heart failure; I50.9 Heart failure, unspecified; J44.9 Chronic obstructive pulmonary disease, unspecified; K21.9 Gastro-esophageal reflux disease without esophagitis; F32.9 Major depressive disorder, single episode, unspecified; Z91.11 Patient's noncompliance with dietary regimen; Z79.899 Other long term (current) drug therapy; Z87.01 Personal history of pneumonia (recurrent); Z87.891 Personal history of nicotine dependence
CPT/HCPCS: 36556; 71045; 73552; 73590; 80053; 81001; 82550; 82803; 82962; 83605; 85025; 85610; 85730; 87040; 87077; 87086; 87186; 87426; 93005; 93971; 96361; 96365; 96366; 96367; 96375; 96376; 99285; J7030; J7040; A4216; C1751; J0610; J2405